=== PATIENT | female | born 1985 | race Hispanic/Latino ===

== ENCOUNTER 2019-02-19 11:37 | Emergency (ER) | payer OTHER ==
[2019-02-19 12:53] LABS: Urine Blood 2+ (NEG); Urine Glucose NEGATIVE (NEG); Urine Protein NEGATIVE (NEG); Urine pH 5.5 (5.0-7.0)
[2019-02-19 13:10] LABS: Urine Bacteria <20 /HPF (<20); Urine Culture Reflex Order NOT NEEDED; Urine Mucus MOD /HPF (NONE SEEN)
[2019-02-19 13:15] LABS: Absolute Lymphocytes (CBC) 2.6 K/uL (0.7-4.9); Basophils % 0.2 % (0-1.3); Hematocrit 39.7 % (36.0-45.0); Lymphocytes % 24.9 % (15.3-44.8); MPV 9.1 fL (7.6-11.3); RBC Red Blood Cell Count 4.57 M/uL (3.86-4.86)
[2019-02-19 13:44] LABS: BUN Blood Urea Nitrogen 11 mg/dL (7-18); Bicarbonate 28 mmol/L (21-32); Glucose Level 95 mg/dL (74-106); HCG, Quantitative 18387 mIU/mL (1-3); Potassium 3.4 mmol/L (3.5-5.1); Sodium Level 139 mmol/L (136-145)
--- NOTE | 2019-02-19 14:09 | RAD REPORT ---
EXAM DESCRIPTION: US - Transvaginal OB - 02/19/2019 1:24 pm CLINICAL HISTORY: with vaginal bleeding COMPARISON: None. FINDINGS: The uterus 12 x 6 x 7 centimeters. A 13 millimeter sac is present within the endometrium. A pole is not seen. A yolk sac is not visualized Nabothian cyst is present within the cervix. 16 millimeter hypoechoic structure within the lower uter ine segment/cervix may represent a fibroid or complex nabothian cyst Ovaries are normal in size and echotexture.. An adnexal mass is not noted. No significant free fluid IMPRESSION: 13 millimeter sac within the endometrium. These findings could represent an early intrauterine in which the yolk sac/ pole is no t seen. An incomplete can also result in this appearance. This all should be correlated clin ically and with serial beta HCG levels. Followup endovaginal sonogram in 1 week recommended
--- NOTE | 2019-02-19 14:14 | ER ---
Nurse's Notes [facility] Name: Sarah Smith Age: 33 yrs Sex: Female : 1985 Arrival Date: 02/19/2019 Time: 11:40 Bed 13 Private MD: Diagnosis: Threatened Presentation: 02/19 11:57 Presenting complaint: Patient states: Spotting for 2 weeks, today had heavy bleeding rb1 and passed a large clot. Transition of care: patient was not received from another setting of care. Onset of symptoms was February 05, 2019. 11:57 Method Of Arrival: Ambulatory rb1 11:57 Acuity: VIPIN 3 rb1 Triage Assessment: 11:57 General: Appears in no apparent distress. comfortable, Behavior is calm, cooperative. rb1 Pain: Complains of pain in low back Pain radiates to groin Pain currently is 6 out of 10 on a pain scale. Neuro: Level of Consciousness is awake, alert, obeys commands, Oriented to person, place, time, situation. Respiratory: Airway is patent Respiratory effort is even, unlabored, Respiratory pattern is regular, symmetrical. : Reports vaginal bleeding that is with clots. Derm: Skin is pink, warm \T\ dry. 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 - Social history:: Smoking status: Patient/guardian denies using tobacco. - Ebola Screening: : Patient negative for fever greater than or equal to 101.5 degrees Fahrenheit, and additional compatible Ebola Virus Disease symptoms. Vital Signs: 12:12 BP 131 / 81; Pulse 95; Resp 17; Temp 98.7(TE); Pulse Ox 100% on R/A; Weight 113.4 kg rb1 (R); Height 5 ft. 4 in. (162.56 cm) (R); Pain 6/10; 14:15 BP 104 / 57; Pulse 82; Resp 16; Temp 98.0(O); Pulse Ox 99% on R/A; mh5 12:12 Body Mass Index 42.91 (113.40 kg, 162.56 cm) rb1 ED Course: 11:40 Patient arrived in ED. as 11:55 [facility] F[facility]-C [facility]. snw 11:55 Ricardo Ramirez MD is Attending Physician. snw 11:57 Arm band placed on right wrist. rb1 12:10 Triage completed. rb1 12:25 Urban Hull, RN is Primary Nurse. ae4 13:23 Ultrasound completed. Patient tolerated well. sg3 13:24 US Transvaginal Ob In Process Unspecified. EDMS 14:14 Initial lab(s) drawn, by me, sent to lab. Urine collected: clean catch specimen, clear. mh5 Inserted saline lock: 22 gauge in right antecubital area, using aseptic technique. 14:15 Patient has correct armband on for positive identification. Placed in gown. Bed in low mh5 position. Call light in reach. Side rails up X 1. Warm blanket given. Pulse ox on. NIBP on. Administered Medications: No medications were administered Intake: 12:47 IV: 250ml; Total: 250ml. em Outcome: 14:12 Discharge ordered by . snw 14:52 Patient left the ED. ae4 Signatures: Dispatcher [employer] EDMS Elisha Smith FNP-C PLANTING MATERIAL UNLOADER-Csnw Robert Colindres, PANTOGRAPH II ENGRAVER PANTOGRAPH II ENGRAVER Love Judd Rebecca, RN RN rb1 [facility] Marii Jurado sg3 Urban Hull, RN RN ae4
--- NOTE | 2019-02-19 14:15 | EDPHYS ---
Physician Documentation [facility] Name: Sarah Smith Age: 33 yrs Sex: Female : 1985 Arrival Date: 02/19/2019 Time: 11:40 Bed 13 Private MD: ED Physician Ricardo Ramirez HPI: 02/19 12:50 This 33 yrs old Female presents to ER via Ambulatory with complaints of snw Vaginal Bleeding, + Preg <12wks. 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 - Social history:: Smoking status: Patient/guardian denies using tobacco. - Ebola Screening: : Patient negative for fever greater than or equal to 101.5 degrees Fahrenheit, and additional compatible Ebola Virus Disease symptoms. ROS: 12:48 Constitutional: Negative for fever, chills, and weight loss, Eyes: Negative for injury, snw pain, redness, and discharge, ENT: Negative for injury, pain, and discharge, Neck: Negative for injury, pain, and swelling, Cardiovascular: Negative for chest pain, palpitations, and edema, Respiratory: Negative for shortness of breath, cough, wheezing, and pleuritic chest pain, Abdomen/GI: Negative for abdominal pain, nausea, vomiting, diarrhea, and constipation, Back: Negative for injury and pain, MS/Extremity: Negative for injury and deformity, Skin: Negative for injury, rash, and discoloration, Neuro: Negative for headache, weakness, numbness, tingling, and seizure. 12:48 : Positive for vaginal bleeding, + . Exam: 12:47 Constitutional: This is a well developed, well nourished patient who is awake, alert, snw and in no acute distress. Head/Face: Normocephalic, atraumatic. Eyes: Pupils equal round and reactive to light, extra-ocular motions intact. Lids and lashes normal. Conjunctiva and sclera are non-icteric and not injected. Cornea within normal limits. Periorbital areas with no swelling, redness, or edema. ENT: Nares patent. No nasal discharge, no septal abnormalities noted. Tympanic membranes are normal and external auditory canals are clear. Oropharynx with no redness, swelling, or masses, exudates, or evidence of obstruction, uvula midline. Mucous membranes moist. Neck: Trachea midline, no thyromegaly or masses palpated, and no cervical lymphadenopathy. Supple, full range of motion without nuchal rigidity, or vertebral point tenderness. No Meningismus. Chest/axilla: Normal chest wall appearance and motion. Nontender with no deformity. No lesions are appreciated. Cardiovascular: Regular rate and rhythm with a normal S1 and S2. No gallops, murmurs, or rubs. Normal PMI, no JVD. No pulse deficits. Respiratory: Lungs have equal breath sounds bilaterally, clear to auscultation and percussion. No rales, rhonchi or wheezes noted. No increased work of breathing, no retractions or nasal flaring. Back: No spinal tenderness. No costovertebral tenderness. Full range of motion. Skin: Warm, dry with normal turgor. Normal color with no rashes, no lesions, and no evidence of cellulitis. MS/ Extremity: Pulses equal, no cyanosis. Neurovascular intact. Full, normal range of motion. Neuro: Awake and alert, GCS 15, oriented to person, place, time, and situation. Cranial nerves II-XII grossly intact. Motor strength 5/5 in all extremities. Sensory grossly intact. Cerebellar exam normal. Normal gait. Psych: Awake, alert, with orientation to person, place and time. Behavior, mood, and affect are within normal limits. 12:47 Abdomen/GI: Inspection: abdomen appears normal, obese Bowel sounds: normal, Palpation: abdomen is soft and non-tender, in all quadrants. Vital Signs: 12:12 BP 131 / 81; Pulse 95; Resp 17; Temp 98.7(TE); Pulse Ox 100% on R/A; Weight 113.4 kg rb1 (R); Height 5 ft. 4 in. (162.56 cm) (R); Pain 6/10; 14:15 BP 104 / 57; Pulse 82; Resp 16; Temp 98.0(O); Pulse Ox 99% on R/A; mh5 12:12 Body Mass Index 42.91 (113.40 kg, 162.56 cm) rb1 MDM: 11:58 Patient medically screened. bárbara 14:20 Data reviewed: vital signs, nurses notes. Data interpreted: Pulse oximetry: on room air snw is 99 %. Interpretation: normal. Counseling: I had a detailed discussion with the patient and/or guardian regarding: the historical points, exam findings, and any diagnostic results supporting the discharge/admit diagnosis, lab results, radiology results, the need for outpatient follow up, to return to the emergency department if symptoms worsen or persist or if there are any questions or concerns that arise at home. Special discussion: Based on the patient's Hx, exam, and Dx evaluation, there is no indication for emergent surgery or inpatient Tx. It is understood by the patient/guardian that if the Sx's persist or worsen they need to return immediately for re-evaluation. Based on the history and exam findings, there is no indication for further emergent testing or inpatient evaluation. I discussed with the patient/guardian the need to see the OB Gyne specialist for further evaluation of the symptoms. 02/19 11:55 Order name: Urine Culture snw 02/19 11:55 Order name: Urine Microscopic Only; Complete Time: 13:18 snw 02/19 12:41 Order name: Urine Dipstick--Ancillary (enter results); Complete Time: 12:54 eb 02/19 12:41 Order name: Urine --Ancillary (enter results); Complete Time: 12:54 eb 02/19 12:54 Order name: Quantitative Hcg; Complete Time: 13:50 snw 02/19 12:54 Order name: Abo/rh Typing; Complete Time: 13:27 snw 02/19 11:55 Order name: Urine Test (obtain specimen); Complete Time: 13:01 snw 02/19 11:55 Order name: Urine Dipstick-Ancillary (obtain specimen); Complete Time: 13:01 snw 02/19 12:18 Order name: US Transvaginal Ob; Complete Time: 14:11 snw 02/19 12:54 Order name: Basic Metabolic Panel; Complete Time: 13:50 snw 02/19 12:54 Order name: CBC with Diff; Complete Time: 13:18 snw 02/19 12:54 Order name: IV Saline Lock; Complete Time: 13:01 snw 02/19 12:54 Order name: Labs collected and sent; Complete Time: 13:01 snw 02/19 12:54 Order name: NPO; Complete Time: 13:01 snw Administered Medications: No medications were administered Disposition: 02/19/19 14:12 Discharged to Home. Impression: Threatened . - Condition is Stable. - Discharge Instructions: Threatened Miscarriage, First Trimester of , Pelvic Rest. - Prescriptions for Vitamin 27- 0.8 mg Oral Tablet - take 1 tablet by ORAL route once daily; 60 tablet. - Work release form, Medication Reconciliation Form, Thank You Letter, Antibiotic Education, Prescription Opioid Use form. - Follow up: Private Physician; When: 2 - 3 days; Reason: Recheck today's complaints, Continuance of care, Re-evaluation by your physician. Follow up: Emergency Department; When: As needed; Reason: Worsening of condition. - Notes: Keep appointment for QUALITY IMPROVEMENT SPECIALIST, return to ER for worsening symptoms Addendum: 02/27/2019 11:05 Co-signature as Attending Physician, Ricardo Ramirez MD I agree with the assessment and c carlson plan of care. Signatures: Dispatcher [employer] EDRicardo Irving MD MD cha Therrien, Shelly, MOLDER FEEDER-C MOLDER FEEDER-Csnw Jess Li, RN RN Urban Light RN RN ae4 Corrections: (The following items were deleted from the chart) 02/19 14:52 14:12 02/19/2019 14:12 Discharged to Home. Impression: Threatened . Condition ae4 is Stable. Forms are Medication Reconciliation Form, Thank You Letter, Antibiotic Education, Prescription Opioid Use. Follow up: Private Physician; When: 2 - 3 days; Reason: Recheck today's complaints, Continuance of care, Re-evaluation by your physician. Follow up: Emergency Department; When: As needed; Reason: Worsening of condition. snw
== END 2019-02-19 14:52 | disposition home or self-care (01) ==
LOC: ER 11:37
DX: O20.0 Threatened abortion (principal); Z88.0 Allergy status to penicillin; Z98.82 Breast implant status
CPT/HCPCS: 36415; 76817; 80048; 81003; 81015; 81025; 84702; 85025; 86900; 86901; 87086; 87088; 99284

== ENCOUNTER 2019-03-05 17:44 | Emergency (ER) | payer MEDICAID, OTHER ==
--- OUTSIDE RECORDS SUMMARY | 2019-03-05 17:46 | XMS REPORT ---
:1985 [facility] Address [address] [place] [address] Care Team Providers Name Role Phone Unavailable Unavailable Unavailable Problems This patient has no known problems. Allergies, Adverse Reactions, Alerts This patient has no known allergies or adverse reactions. Medications This patient has no known medications.
--- NOTE | 2019-03-05 18:52 | ER ---
Nurse's Notes [facility] Name: Sarah Smith Age: 33 yrs Sex: Female : 1985 Arrival Date: 03/05/2019 Time: 17:44 Bed 23 Private MD: Diagnosis: 8 weeks gestation of ;Threatened Presentation: 03/05 17:46 Presenting complaint: Patient states: Vaginal bleeding that started today, patient aj1 reports that she is 9 weeks . Patient reports abdominal cramping. Transition of care: patient was not received from another setting of care. Onset of symptoms was March 05, 2019. Risk Assessment: Do you want to hurt yourself or someone else? Patient reports no desire to harm self or others. Initial Sepsis Screen: Does the patient meet any 2 criteria? No. Patient's initial sepsis screen is negative. Does the patient have a suspected source of infection? No. Patient's initial sepsis screen is negative. Care prior to arrival: None. 17:46 Method Of Arrival: Wheelchair aj 17:46 Acuity: VIPIN 3 aj1 Triage Assessment: 17:48 General: Appears in no apparent distress. comfortable, Behavior is calm, cooperative, aj1 appropriate for age. Pain: Complains of pain in right lower quadrant and left lower quadrant Pain currently is 5 out of 10 on a pain scale. Neuro: Level of Consciousness is awake, alert, obeys commands. Cardiovascular: Patient's skin is warm and dry. Respiratory: Airway is patent Respiratory effort is even, unlabored, Respiratory pattern is regular, symmetrical. GI: No signs and/or symptoms were reported involving the gastrointestinal system. : Reports vaginal bleeding that is bright red, heavy flow. 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 - Social history:: Smoking status: Patient/guardian denies using tobacco. - Ebola Screening: : Patient denies travel to an Ebola-affected area in the 21 days before illness onset. Screenin:31 Abuse screen: Denies threats or abuse. Denies injuries from another. Nutritional mg2 screening: No deficits noted. Tuberculosis screening: No symptoms or risk factors identified. Fall Risk None identified. Assessment: 18:29 General: Appears in no apparent distress. comfortable, Behavior is calm, cooperative. mg2 Pain: Denies pain. Neuro: Level of Consciousness is awake, alert, obeys commands, Oriented to person, place, time, situation. Cardiovascular: Capillary refill < 3 seconds Patient's skin is warm and dry. Respiratory: Airway is patent Respiratory effort is even, unlabored, Respiratory pattern is regular, symmetrical. GI: No signs and/or symptoms were reported involving the gastrointestinal system. : Reports cramping, vaginal bleeding that is moderate flow. EENT: No signs and/or symptoms were reported regarding the EENT system. Derm: Skin is intact, is healthy with good turgor, Skin is pink, warm \T\ dry. normal. Musculoskeletal: Circulation, motion, and sensation intact. Capillary refill < 3 seconds. 18:31 Obstetrical Assessment: General assessment: awake and alert. mg2 Vital Signs: 17:48 BP 118 / 73; Pulse 86; Resp 18; Temp 98.2; Pulse Ox 100% on R/A; Weight 113.4 kg (R); aj1 Height 5 ft. 4 in. (162.56 cm) (R); Pain 5/10; 19:05 BP 118 / 78; Pulse 80; Resp 18; Temp 98; Pulse Ox 100% on R/A; mg2 17:48 Body Mass Index 42.91 (113.40 kg, 162.56 cm) aj1 Vitals: 19:00 Heart Tones fht-done in [facility]. mg2 ED Course: 17:44 Patient arrived in ED. as 17:46 Antoinette Reyes FNP-C is [facility]. kb 17:46 Paras Chan MD is Attending Physician. kb 17:47 Triage completed. aj1 17:48 Arm band placed on Patient placed in an exam room. aj1 17:51 Eliezer Lezama, SO is Primary Nurse. mg2 18:15 Initial lab(s) drawn, by me, sent to lab. Patient did not have IV access during this [facility] emergency room visit. 18:31 Patient has correct armband on for positive identification. Door closed. Warm blanket mg2 given. 18:31 No provider procedures requiring assistance completed. mg2 18:52 Ultrasound completed. Patient tolerated well. Notified WEAVER AXMINSTER/PA . sg3 18:53 US Transvaginal Ob In Process Unspecified. EDMS Administered Medications: No medications were administered Point of Care Testing: Urine : 19:00 not done mg2 Outcome: 18:51 Discharge ordered by . johnathan 19:05 Discharged to home ambulatory, with family. mg2 19:05 Condition: stable 19:05 Discharge instructions given to patient, family, Instructed on discharge instructions, follow up and referral plans. Demonstrated understanding of instructions, follow-up care. 19:15 Patient left the ED. mg2 Signatures: Dispatcher [employer] EDAntoinette Jensen, SCENERY BUILDER-C SCENERY BUILDER-CkRiana Medrano, RN RN Love Uribe Sarah sg3 Eliezer Lezama RN RN mg2
--- NOTE | 2019-03-05 18:52 | EDPHYS ---
Physician Documentation [facility] Name: Sarah Smith Age: 33 yrs Sex: Female : 1985 Arrival Date: 03/05/2019 Time: 17:44 Bed 23 Private MD: ED Physician Paras Chan HPI: 03/05 18:36 This 33 yrs old Female presents to ER via Wheelchair with complaints of kb Vaginal Bleeding, + Preg <12wks. 18:36 The patient presents to the emergency department with vaginal bleeding, that is kb moderate, with no clots. The estimated gestational age is 9 weeks. course: care: at a clinic. Previous pregnancies: in previous pregnancies patient has had. Associated signs and symptoms: Pertinent positives: vaginal bleeding. The patient has not experienced similar symptoms in the past. The patient has not recently seen a physician. Pt reports she had some vaginal bleeding earlier today. It has resolved. . 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 - Social history:: Smoking status: Patient/guardian denies using tobacco. - Ebola Screening: : Patient denies travel to an Ebola-affected area in the 21 days before illness onset. ROS: 18:35 Constitutional: Negative for fever, chills, and weight loss, ENT: Negative for injury, kb pain, and discharge, Neck: Negative for injury, pain, and swelling, Cardiovascular: Negative for chest pain, palpitations, and edema, Respiratory: Negative for shortness of breath, cough, wheezing, and pleuritic chest pain, Abdomen/GI: Negative for abdominal pain, nausea, vomiting, diarrhea, and constipation, Back: Negative for injury and pain, MS/Extremity: Negative for injury and deformity, Skin: Negative for injury, rash, and discoloration, Neuro: Negative for headache, weakness, numbness, tingling, and seizure. 18:35 : Positive for vaginal bleeding. Exam: 18:35 Constitutional: This is a well developed, well nourished patient who is awake, alert, kb and in no acute distress. Head/Face: Normocephalic, atraumatic. ENT: Nares patent. No nasal discharge, no septal abnormalities noted. Tympanic membranes are normal and external auditory canals are clear. Oropharynx with no redness, swelling, or masses, exudates, or evidence of obstruction, uvula midline. Mucous membranes moist. Neck: Trachea midline, no thyromegaly or masses palpated, and no cervical lymphadenopathy. Supple, full range of motion without nuchal rigidity, or vertebral point tenderness. No Meningismus. Chest/axilla: Normal chest wall appearance and motion. Nontender with no deformity. No lesions are appreciated. Cardiovascular: Regular rate and rhythm with a normal S1 and S2. No gallops, murmurs, or rubs. Normal PMI, no JVD. No pulse deficits. Respiratory: Lungs have equal breath sounds bilaterally, clear to auscultation and percussion. No rales, rhonchi or wheezes noted. No increased work of breathing, no retractions or nasal flaring. Abdomen/GI: Soft, non-tender, with normal bowel sounds. No distension or tympany. No guarding or rebound. No evidence of tenderness throughout. Skin: Warm, dry with normal turgor. Normal color with no rashes, no lesions, and no evidence of cellulitis. MS/ Extremity: Pulses equal, no cyanosis. Neurovascular intact. Full, normal range of motion. Neuro: Awake and alert, GCS 15, oriented to person, place, time, and situation. Cranial nerves II-XII grossly intact. Motor strength 5/5 in all extremities. Sensory grossly intact. Cerebellar exam normal. Normal gait. Vital Signs: 17:48 BP 118 / 73; Pulse 86; Resp 18; Temp 98.2; Pulse Ox 100% on R/A; Weight 113.4 kg (R); aj1 Height 5 ft. 4 in. (162.56 cm) (R); Pain 5/10; 19:05 BP 118 / 78; Pulse 80; Resp 18; Temp 98; Pulse Ox 100% on R/A; mg2 17:48 Body Mass Index 42.91 (113.40 kg, 162.56 cm) aj1 MDM: 17:49 Patient medically screened. kb 18:35 Data reviewed: vital signs, nurses notes. Data interpreted: Pulse oximetry: on room air kb is 100 %. Interpretation: normal. 18:50 Counseling: I had a detailed discussion with the patient and/or guardian regarding: the kb historical points, exam findings, and any diagnostic results supporting the discharge/admit diagnosis, lab results, radiology results, the need for outpatient follow up, an OB/Gyne specialist, to return to the emergency department if symptoms worsen or persist or if there are any questions or concerns that arise at home. 03/05 17:51 Order name: HCG-Quantitative; Complete Time: 18:55 kb 03/05 17:51 Order name: US Transvaginal Ob kb Administered Medications: No medications were administered Point of Care Testing: Urine : 19:00 not done mg2 Disposition: 03/06 07:05 Co-signature as Attending Physician, Paras Chan MD. rn Disposition: 03/05/19 18:51 Discharged to Home. Impression: 8 weeks gestation of , Threatened . - Condition is Stable. - Discharge Instructions: Vaginal Bleeding During , First Trimester, First Trimester of , [id number], Threatened Miscarriage, [id number]. - Medication Reconciliation Form, Thank You Letter, Antibiotic Education, Prescription Opioid Use form. - Follow up: Emergency Department; When: As needed; Reason: Worsening of condition. Follow up: Private Physician; When: 2 - 3 days; Reason: Recheck today's complaints, Continuance of care, Re-evaluation by your physician. Signatures: Dispatcher [employer] EDSC Antoinette Reyes, BUSINESS SUPPORT PROFESSIONAL-C BUSINESS SUPPORT PROFESSIONAL-Ckb Riana Onofre RN RN aj1 Paras Chan MD MD rn Gardose, Michele, RN RN mg2 Corrections: (The following items were deleted from the chart) 03/05 19:15 18:51 03/05/2019 18:51 Discharged to Home. Impression: 8 weeks gestation of ; mg2 Threatened . Condition is Stable. Forms are Medication Reconciliation Form, Thank You Letter, Antibiotic Education, Prescription Opioid Use. Follow up: Emergency Department; When: As needed; Reason: Worsening of condition. Follow up: Private Physician; When: 2 - 3 days; Reason: Recheck today's complaints, Continuance of care, Re-evaluation by your physician. kb
--- NOTE | 2019-03-05 19:15 | RAD REPORT ---
EXAM DESCRIPTION: US - Transvaginal OB - 03/05/2019 6:53 pm CLINICAL HISTORY: Abd cramping, ;Vaginal bleeding COMPARISON: Transvaginal OB dated 02/19/2019 FINDINGS: A single gestational sac is seen within the uterus. The shape of the sac is within normal limits for gestational age. Within the sac is a single pole with crown-rump length of 22 mm, co rrelating to estimated gestational age of 8 weeks and 5 days. Estimated date of delivery is 0. Heart rate is 170 BPM. The placenta is not yet developed due to early gestational age. The maternal adnexa and ovaries are within normal limits. Normal Doppler blood flow was demonstrated to both ovaries. IMPRESSION: Single live early intrauterine gestation with estimated gestational age of 8 weeks 5 day s, BECCA 10/10/2019. No unusual or unexpected finding.
[2019-03-05 19:44] VITALS: O2SAT 100
[2019-03-05 19:45] VITALS: BP 118/78; TEMP 98
== END 2019-03-05 19:15 | disposition home or self-care (01) ==
LOC: ER 17:44
DX: O20.0 Threatened abortion (principal); Z3A.08 8 weeks gestation of pregnancy; Z88.0 Allergy status to penicillin
CPT/HCPCS: 36415; 76817; 84702; 99284

== ENCOUNTER 2020-10-04 17:29 | Emergency (ER) | payer OTHER ==
--- OUTSIDE RECORDS SUMMARY | 2020-10-04 17:32 | XMS REPORT | Continuity of Care Document ---
:1985 Author Organization [facility] t Address [address] [place] [address] Care Team Providers Name Role Phone Asked, Pcp Primary Care Physician Unavailable Dee Brown MD Attending Clinician Nurse, Women's [facility] Attending Clinician Unavailable Doctor Unassigned, Name Attending Clinician Unavailable Gene LONDON, Cam Attending Clinician Payers Payer Name Policy Type Policy Effective Date Expiration Date Sour ce Number MOLINAMOLINA [id number] 2019 [facility] STAR 00:00:00 Hospit al [id number]/03/13 20-PresentHMO Problems This patient has no known problems. Allergies, Adverse Reactions, Alerts Allergy Allergy Status Severity Reaction(s) Onset Inactive Treating Comm ents Source Name Type Date Date Clinician Penicill Propensi Active Swelling Meth rishi ins ty to 06-03 st adverse 00:00: Hospita reaction 00 l s to drug Penicill DA Active U 2019-02 [facility] ins 02-23 [facility] are [facility] Social History Social Habit Start Date Stop Date Quantity Comments Source History SDOH [facility] History SDOH [facility] Tobacco use and 2020-06-03 2020-06-03 Never used [facility] exposure 00:00:00 00:00:00 Hospital Alcohol intake 2020-06-03 2020-06-03 Lifetime [facility] 00:00:00 00:00:00 non-drinker Hospital (finding) History SDOH 2020-06-03 2020-06-03 1 [facility] Alcohol Frequency 00:00:00 00:00:00 Hospita l Sex Assigned At [birth year] [facility] 00[facility]00 [facility] Smoking Status Start Date Stop Date Source Never smoker [facility] Medications Ordered Filled Start Stop Current Ordering Indication Dosage Frequency Signature Comments Components Source Medication Medication Date Date Medication? Clinician (SIG) Name Name phentermine Yes 37.5mg QD Take 37.5 [facility] 37.5 MG 4-[address] capsule 23:22: mouth Hospita 35 every l morning. albuterol 2020- No 2{puff} Q4H Inhale 2 [facility] (PROAIR 12 05-[address] HFA) 90 00:00: 04:59 every 4 Hospit a mcg/actuati 00 :00 (four) l on inhaler hours as needed for wheezing for up to 30 days. benzonatate No 100mg [id number] Take 1 [facility] (TESSALON) 06-03 04-[id number] 100 MG 00:00: 04:59 3D (100 mg Hospita capsule 00 :00 total) by l mouth 3 (three) times a day as needed for cough for up to 5 days. Vital Signs Vital Name Observation Time Observation Value Comments Source Body height 2020-06-03 23:20:[address] [facility] Body weight 2020-06-03 23:20:[address] [facility] BMI 2020-06-03 23:20:00 39.48 kg/m2 [facility] Systolic blood 2020-06-03 23:19:54 125 mm[Hg] [facility] Hospital pressure Diastolic blood 2020-06-03 23:19:54 74 mm[Hg] [facility] pressure Heart rate 2020-06-03 23:19:54 94 /min [facility] Body temperature 2020-06-03 23:19:54 37.28 [facility] Respiratory rate 2020-06-03 23:19:54 20 /min [facility] Oxygen saturation in 2020-06-03 23:19:54 98 /min [facility] Arterial blood by Pulse oximetry Procedures Procedure Date / Time Performing Clinician Source Performed ECG 12-LEAD 2020-06-04 00:28[facility], RAPID 2020-06-04 00:15:[address] [facility] ANTIGEN HC COMPLETE BLD COUNT 2020-06-04 00:15:00 [facility] W/AUTO DIFF BASIC METABOLIC PANEL 2020-06-04 00:15:00 [facility] TROPONIN, I-STAT 2020-06-04 00:15:00 Arlette Brown [facility] ospital HCG QUALITATIVE, URINE 2020-06-04 00:15:00 Kevin [facility] SCREEN URINALYSIS 2020-06-04 00:15:00 [facility] GFR 2020-06-04 00:15:00 Kevin [facility] spital XR CHEST 2 VW 2020-06-03 23:54:55 Kevin [facility] spital ECG ED PRELIMINARY 2020-06-03 23:30:13 Kevin [facility] INTERPRETATION Plan of Care Planned Activity Planned Date Details Comments Source Future Scheduled Test COVID-19 VACCINE (1) [facility] [code = COVID-19 VACCINE (1)] Future Scheduled Test Hepatitis C screening [facility] (procedure) [code = 069428687] Future Scheduled Test Screening for [facility] malignant neoplasm of cervix (procedure) [code = 100152770] Future Scheduled Test INFLUENZA VACCINE [facility] [code = INFLUENZA VACCINE] Encounters Start End Encounter Admission Attending Care Care Encounter Source Date/Time Date/Time Type Type Clinicians Facility Department ID 2020-06-03 2020-06-03 Emergency Arlette Brown [id number] [facility] 18:19:00 20:05:[id number] 3.430.2.7 Hospit a .[id number] l .8 2020-06-03 2020-06-03 Emergency [facility] [id number] [facility] 00:00:00 00:00:[address] 2019-08-02 2019-08-02 Nurse Nurse, Kate [facility] [id number] 13:36:00 14:05:42 Visit Women's Tereza 350.1.13.10 [facility] 4.2.7.2.686 Professio [phone] nal [address] [facility] 2019-08-02 2019-08-02 Orders Doctor CARLOTA [id number] 00:00:00 00:00:00 Only Unassigned, STU 350.1.13.10 [facility] 4.2.7.2.686 [id number] 2019-07-06 2019-07-06 Office MillsNatasha [facility] [id number] 13:05:07 14:04:09 Visit Greg Starks 350.1.13.10 [place] 4.2.7.2.686 Professio [id number] [facility] [address] [facility] Results Test Description Test Time Test Comments Results Result Comments Source ECG 12 lead 2020-06-05 02:38:51 Test Item Value Reference Range Interpretation Comme nts Ventricular rate (test code = 253) Atrial rate (test code = 255) IA interval (test code = 266) QRSD interval (test code = 260) QT interval (test code = 264) QTC interval (test code = 265) P axis 1 (test code = 267) QRS axis 1 (test code = 268) T wave axis (test code = 270) EKG impression (test code = 273) Normal sinus rhythm-Cannot rule ou t Anterior infarct , age undetermined-Abnormal ECG-No previous ECGs available- [facility] 2 [id number] 00:26:22EXAMINATION: XR CHEST 2 VW CLINICAL HISTORY: 34 years Female evaluate for PNA COMPARISON: None. IM PRESSION: The cardiomediastinal silhouette is not enlarged The lungs are clear Age related changesin the osseous structures. . . Interface, Radiology Results Incoming - 06/03/2020 7:29 PM CDT EXAMINATION: XR CHEST 2 VWCLINICAL HISTORY: 34 years Female evaluate for PNACOMPARISON: None.IMPRESSION:The cardiomediastinal silhouette isnot enlarged The lungs are clear Age related changes in the osseous structures...[facility] ED Preliminary Interpretation - Not an Order 2020-06-03 23:30:13Arlette Brown MD 06/03/2020 7:48 [facility] Preliminary Interpretation - Not an OrderPerformed by: Arlette Brown MDAuthorized by: Arlette Brown MD ECG reviewed by ED Physician in the absence of a wireless sales representative: yes Interpretation: Interpretation: non-specific Rate: ECG rate: 87 ECG rate assessment: normal Rhythm: Rhythm: sinus rhythm ST segments: ST segments: NormalT waves: Twaves: non-specific and flatteningMethodist HospitalURINALYSIS [id number] 14:09:00 Test Item Value Reference Range Interpretation Comments UA COLOR (test code = COLU) YELLOW YELLOW UA APPEARANCE (test code = APPU) HAZY CLEAR UA GLUCOSE DIPSTICK (test code = NEGATIVE NEGATIVE DGLUU) UA BILIRUBIN DIPSTICK (test code = NEGATIVE NEGATIVE BILU) UA KETONE DIPSTICK (test code = NEGATIVE NEGATIVE KETU) UA SPECIFIC GRAVITY (test code = 1.020 1.001-1.030 SGU) UA BLOOD DIPSTICK (test code = NAOMI) 1+ NEGATIVE UA PH DIPSTICK (test code = LYNSEY) 5.0 5.0-9.0 UA PROTEIN DIPSTICK (test code = NEGATIVE NEGATIVE PROU) UA UROBILINOGEN DIPSTICK (test code NEGATIVE <=1.0 = URO) UA NITRITE DIPSTICK (test code = NEGATIVE NEGATIVE BIENVENIDO) UA ASCORBIC ACID DIPSTICK (test code NEGATIVE = AAU) UA LEUKOCYTE ESTERASE DIPSTICK (test NEGATIVE NEGATIVE code = LEUU) UA WBC (test code = WBCU) 0-5 /HPF 0-5 UA RBC (test code = RBCU) 0-5 /HPF 0-5 UA EPITHELIAL CELLS (test code = MOD /LPF NONE-FEW EPIU) UA BACTERIA (test code = BACU) 1+ /HPF NONE SEEN A UA MUCUS (test code = MUCU) 1+ /LPF NONE SEEN UR HCG [id number] 14:08:00 Test Item Value Reference Range Interpretation Comments UR HCG QUAL (test code = HCGQLU) NEGATIVE NEGATIVE
[2020-10-04] MEDS ORDERED: MAGNES/ALUMIN/SIMET 30ML UCUP ONE (18:41)
[2020-10-04] MEDS ORDERED: IBUPROFEN 200 MG TAB PO ONE (18:41)
[2020-10-04] MEDS ORDERED: LIDOCAINE VISCOUS 2% SOLN 15 ML UDC ONE (18:41)
[2020-10-04 19:43] LABS: SARS-COV-2 RT PCR POSITIVE (NEGATIVE)
--- NOTE | 2020-10-04 19:51 | EDPHYS ---
Physician Documentation [facility] Name: Sarah Smith Age: 34 yrs Sex: Female : 1985 Arrival Date: 10/04/2020 Time: 17:36 Bed Waiting Private MD: ED Physician Floyd Pal HPI: 10/04 19:45 This 34 yrs old Female presents to ER via Ambulatory with complaints of Ear kb Pain, Sore Throat, Fever, Breathing Difficulty. 20:00 The patient has not recently seen a physician. kb 20:00 The patient presents with sore throat. The patient describes throat pain as constant. kb Onset: The symptoms/episode began/occurred 1 week(s) ago. Severity of symptoms: At their worst the symptoms were moderate, in the emergency department the symptoms are unchanged. Modifying factors: The symptoms are alleviated by nothing, the symptoms are aggravated by nothing, Patient's oral intake status: limited fluid intake, limited food intake, Denies contact with similarly ill indivduals. Associated signs and symptoms: Pertinent positives: earache, fever, Sore throat. The patient has not experienced similar symptoms in the past. Pt reports fever, sore throat and ear pain that started a week ago. Was seen by PCP on Wednesday and started on antibiotics. Ears are getting better, but pain in throat is getting worse. . Historical: - Allergies: 18:16 PENICILLINS; ss - Immunization history:: Adult Immunizations up to date. - Social history:: Smoking status: Patient denies any tobacco usage or history of. ROS: 19:43 Constitutional: Positive for body aches, chills, fatigue, fever, malaise. kb 19:43 ENT: Positive for ear pain, sore throat. 19:44 Respiratory: Negative for shortness of breath, cough, wheezing, and pleuritic chest kb pain. 19:44 All other systems are negative. Exam: 19:44 Constitutional: This is a well developed, well nourished patient who is awake, alert, kb and in no acute distress. Head/Face: Normocephalic, atraumatic. Cardiovascular: Regular rate and rhythm with a normal S1 and S2. No gallops, murmurs, or rubs. No pulse deficits. Respiratory: Respirations even and unlabored. No increased work of breathing, no retractions or nasal flaring. Abdomen/GI: Soft, non-tender. No distention Skin: Warm, dry with normal turgor. Normal color. MS/ Extremity: Pulses equal, no cyanosis. Neurovascular intact. Full, normal range of motion. Neuro: Awake and alert, GCS 15, oriented to person, place, time, and situation. Moves all extremities. Normal gait. Psych: Awake, alert, with orientation to person, place and time. Behavior, mood, and affect are within normal limits. 19:44 ENT: Ear canal(s): are normal, TM's: are normal, Nose: is normal, Mouth: is normal, Posterior pharynx: Airway: normal, Tonsils: are normal in appearance, Uvula: normal, midline, swelling, is not appreciated, erythema, that is mild, exudate, is not appreciated. Vital Signs: 18:13 BP 133 / 86; Pulse 126; Resp 20; Temp 101.0; Pulse Ox 97% on R/A; Weight 108.86 kg; ss Height 5 ft. 5 in. (165.10 cm); 20:02 Pulse 115; Temp 97.9; kb 18:13 Body Mass Index 39.94 (108.86 kg, 165.10 cm) ss MDM: 18:15 Patient medically screened. kb 19:45 Data reviewed: vital signs, nurses notes. Data interpreted: Pulse oximetry: on room air kb is 97 %. Interpretation: normal. Counseling: I had a detailed discussion with the patient and/or guardian regarding: the historical points, exam findings, and any diagnostic results supporting the discharge/admit diagnosis, lab results, the need for outpatient follow up, a family practitioner, to return to the emergency department if symptoms worsen or persist or if there are any questions or concerns that arise at home. 10/04 17:50 Order name: Flu kb 10/04 17:50 Order name: Strep; Complete Time: 18:50 kb 10/04 18:45 Order name: Throat Culture EDMS 10/04 19:44 Order name: COVID-19/FLU A+B; Complete Time: 19:50 EDMS Administered Medications: 18:21 Drug: GI Cocktail without - (Maalox Suspension 30 ml, Lidocaine Liquid 2 % 15 kb ml) Route: PO; 18:21 Drug: Ibuprofen 600 mg Route: PO; kb Disposition Summary: 10/04/20 19:50 Discharge Ordered Location: Home kb Condition: Stable kb Diagnosis - Coronavirus infection, unspecified kb Followup: kb - With: Emergency Department - When: As needed - Reason: Worsening of condition Followup: kb - With: Private Physician - When: 2 - 3 days - Reason: Recheck today's complaints, Continuance of care, Re-evaluation by your physician Discharge Instructions: - Discharge Summary Sheet kb - Viral Respiratory Infection, Yddr-Ul-Bmyl kb - COVID-19 kb Forms: - Medication Reconciliation Form kb - Thank You Letter kb - Antibiotic Education kb - Prescription Opioid Use kb Addendum: 10/07/2020 07:11 Co-signature as Attending Physician, Floyd Pal MD I agree with the assessment and k dr plan of care. Signatures: Dispatcher [employer] EDMS Antoinette Reyes, CHIEF CONTROLLER TOWER-C CHIEF CONTROLLER TOWER-Ckb Floyd Pal MD MD [facility] Connie Valerio RN RN ss Corrections: (The following items were deleted from the chart) 10/04 18:37 17:50 Influenza Screen (A ordered. EDMS EDMS 18:37 17:50 CORONAVIRUS+MR.LAB.BRZ ordered. EDMS EDMS 19:44 19:43 ENT: Positive for sore throat, kb kb
--- NOTE | 2020-10-04 19:51 | ER ---
Nurse's Notes [facility] Name: Sarah Smith Age: 34 yrs Sex: Female : 1985 Arrival Date: 10/04/2020 Time: 17:36 Bed Waiting Private MD: Diagnosis: Coronavirus infection, unspecified Presentation: 10/04 18:13 Chief complaint: Patient states: ear pain, sore throat that began Wednesday. DX with ss bilateral ear infections on Wednesday and given amoxicillin. Pt reports that her ears are better, but her throat is much worse. Coronavirus screen: Client denies travel out of the [place] in the last 14 days. Ebola Screen: Patient denies exposure to infectious person. Patient denies travel to an Ebola-affected area in the 21 days before illness onset. Initial Sepsis Screen: Does the patient meet any 2 criteria? RR > 20 per min. Does the patient have a suspected source of infection? Yes: Other: throat. Risk Assessment: Do you want to hurt yourself or someone else? Patient reports no desire to harm self or others. Onset of symptoms was September 28, 2020. 18:13 Method Of Arrival: Ambulatory ss 18:13 Acuity: VIPIN 3 ss Historical: - Allergies: 18:16 PENICILLINS; ss - Immunization history:: Adult Immunizations up to date. - Social history:: Smoking status: Patient denies any tobacco usage or history of. Vital Signs: 18:13 BP 133 / 86; Pulse 126; Resp 20; Temp 101.0; Pulse Ox 97% on R/A; Weight 108.86 kg; ss Height 5 ft. 5 in. (165.10 cm); 20:02 Pulse 115; Temp 97.9; kb 18:13 Body Mass Index 39.94 (108.86 kg, 165.10 cm) ss ED Course: 17:36 Patient arrived in ED. mr 17:49 Antoinette Reyes FNP-C is [facility]. kb 17:49 Floyd Pal MD is Attending Physician. kb 18:16 Triage completed. ss 18:16 Arm band placed on right wrist. ss 18:22 Strep Sent. ss 18:22 Flu Sent. ss Administered Medications: 18:21 Drug: GI Cocktail without - (Maalox Suspension 30 ml, Lidocaine Liquid 2 % 15 kb ml) Route: PO; 18:21 Drug: Ibuprofen 600 mg Route: PO; kb Outcome: 19:50 Discharge ordered by . johnathan 20:59 Patient left the ED. kb Signatures: Antoinette Reyes FNP-C FNP-Damian Raymonda Kayleen mr ChenchoаннаConnie, RN RN ss Corrections: (The following items were deleted from the chart) 18:37 18:22 Influenza Screen (A drawn and sent. EDMS
[2020-10-04 21:03] VITALS: BP 133/86; O2SAT 97
[2020-10-04 21:04] VITALS: TEMP 97.9
== END 2020-10-04 20:59 | disposition home or self-care (01) ==
LOC: ER 17:29
DX: U07.1 COVID-19 (principal); Z88.0 Allergy status to penicillin
CPT/HCPCS: 87070; 87081; 0240U; 99283

== ENCOUNTER 2021-06-16 13:48 | Emergency (ER) | payer OTHER ==
--- OUTSIDE RECORDS SUMMARY | 2021-06-16 14:01 | XMS REPORT | Continuity of Care Document ---
:1985 Author Organization [facility] t Address [address] [place] [address] Care Team Providers Name Role Phone Asked, Pcp Primary Care Physician Unavailable ALEMAN Attending Clinician Unavailable Dee Brown MD Attending Clinician Hortencia KING Attending Clinician Unavailable Nurse, Women's Health Attending Clinician Unavailable Doctor Unassigned, Name Attending Clinician Unavailable Guerrero Roque MD Attending Clinician GUERRERO ROQUE Attending Clinician Unavailable MYNOR MG, A Attending Clinician Unavailable ANA LAURA WHEATLEY Admitting Clinician Unavailable MYNOR MG, Hortencia Admitting Clinician Unavailable Payers Payer Name Policy Type Policy Number Effective Date Expiration Date S jose elias [facility] [id number] 2019 MEDICAID 00:00:00 [facility] [id number] 2019 [facility] 00:00:00 [facility] [id number] 020-PresentO MEDICAID [place] [id number] 2019 2019 00:00:00 00:00:00 Problems This patient has no known problems. Allergies, Adverse Reactions, Alerts Allergy Allergy Status Severity Reaction(s) Onset Inactive Treating Comm ents Source Name Type Date Date Clinician Penicill Propensi Active Swelling Meth rishi ins ty to 4-12 st adverse 00:00: Hospita reaction 00 l s to drug Penicill DA Active U 2019-02 [facility] ins 02-23 [place] 00:[facility]: Health [address] Penicill DA Active U UNKNOWN 2019-02 [facility] ins 02-23 [place] 00:00: Health [address] PENICILL DRUG Active Hives 2018-02 Univers IN INGREDI 2-31 ity of 00:00: [place] [id number] [address] Social History Social Habit Start Date Stop Date Quantity Comments Source History [facility] Std Drinks Hospit al History [facility] Binge [facility] Tobacco use and 2020-06-03 2020-06-03 Never used [facility] exposure 00:00:00 00:00:00 Hospital Alcohol intake 2020-06-03 2020-06-03 Lifetime [facility] 00:00:00 00:00:00 non-drinker Hospital (finding) History SDOH 2020-06-03 2020-06-03 1 [facility] Alcohol Frequency 00:00:00 00:00:00 Hospita l Sex Assigned At [birth year] [facility] 00:[facility] 00:00:00 Hospital Smoking Status Start Date Stop Date Source Never smoker [facility] Hospit al Medications Ordered Filled Start Stop Current Ordering Indication Dosage Frequency Signature Comments Components Source Medication Medication Date Date Medication? Clinician (SIG) Name Name phentermine Yes 37.5mg QD Take 37.5 [facility] 37.5 MG 4-[address] capsule 23:22: mouth Hospita 35 every l morning. albuterol 2020- No 2{puff} Q4H Inhale 2 [facility] (PROAIR 4-12 05-[address] HFA) 90 00:00: 04:59 every 4 Hospit a mcg/actuati 00 :00 (four) l on inhaler hours as needed for wheezing for up to 30 days. benzonatate 2020- No 100mg Q.[id number] Take 1 [facility] (TESSALON) 4-12 04-[id number] 100 MG 00:00: 04:59 3D (100 mg Hospita capsule 00 :00 total) by l mouth 3 (three) times a day as needed for cough for up to 5 days. Vital Signs Vital Name Observation Time Observation Value Comments Source Body weight 2020-06-03 23:20:00 104.327 [facility] 2020-06-03 23:20:00 39.48 kg/m2 [facility] Body height 2020-06-03 23:20:00 162.6 cm [facility] Systolic blood 2020-06-03 23:19:54 125 mm[Hg] [facility] pressure Diastolic blood 2020-06-03 23:19:54 74 mm[Hg] [facility] pressure Heart rate 2020-06-03 23:19:54 94 /min [facility] Body temperature 2020-06-03 23:19:54 37.28 Jie [facility] Respiratory rate 2020-06-03 23:19:54 20 /min [facility] Oxygen saturation in 2020-06-03 23:19:54 98 /min [facility] Arterial blood by Pulse oximetry Procedures Procedure Date / Time Performing Clinician Source Performed ECG 12-LEAD 2020-06-04 00:28:54 [facility]ees[facility]al GROUP A STREP, RAPID 2020-06-04 00:15:00 [facility] COMPLETE BLD COUNT 2020-06-04 00:15:00 Kevin [facility] W/AUTO DIFF BASIC METABOLIC PANEL 2020-06-04 00:15:00 [facility] TROPONIN, I-STAT 2020-06-04 00:15:00 Gigi Brown ospital HCG QUALITATIVE, URINE 2020-06-04 00:15:00 [facility] SCREEN URINALYSIS 2020-06-04 00:15:00 Gigi Brown spital ESTIMATED GFR 2020-06-04 00:15:00 [facility] CHEST 2 VW 2020-06-03 23:54:55 [facility] PRELIMINARY 2020-06-03 23:30:13 [facility] INTERPRETATION Plan of Care Planned Activity Planned Date Details Comments Source Future Scheduled Test COVID-19 VACCINE (1) [facility] [code = COVID-19 VACCINE (1)] Future Scheduled Test Hepatitis C screening [facility] (procedure) [code = 473148773] Future Scheduled Test [facility] malignant neoplasm of cervix (procedure) [code = 132467989] Future Scheduled Test INFLUENZA VACCINE [facility] [code = INFLUENZA VACCINE] Encounters Start End Encounter Admission Attending Care Care Encounter Source Date/Time Date/Time Type Type Clinicians Facility Department ID 2020-12-19 Outpatient P [facility] PEÑA [id number] Univers 14:52:42 ity of [facility] 2020-12-19 Outpatient [facility] [id number] Univers 14:25:49 ity [facility] 2019-12-25 Inpatient HCANW ARIELLE [id number] 12:39:00 [id number] [facility] 2020-06-14 2020-06-14 [facility] [id number] Univers 15:00:00 15:00:00 [facility] [id number] [facility] 2020-06-03 2020-06-03 Emergency Ho, Gigi [id number] Methodi 18:19:00 20:05:[id number] 3.430.2.7 Hospit a .[id number] l .8 2019-10-31 2019-10-31 Outpatient [facility] [id number] Univers 14:30:00 14:30:00 [id number] [facility] 2019-08-24 2019-08-24 Outpatient Francia CHRISTINE [facility] [id number] Univers 09:30:00 09:30:00 WONDIFUL ity o f [facility] 2019-08-24 2019-08-24 Outpatient R CHRISTINE [facility] [id number] Univers 09:00:00 09:00:00 WONDIFUL ity o f [facility] 2019-08-11 2019-08-11 Outpatient R LOVE, [facility] [id number] Univers 08:30:00 08:30:00 BART [id number] ity [facility] 2019-08-11 2019-08-11 Outpatient R LOVE, [facility] [id number] Univers 08:30:00 08:30:00 BART [facility] 2019-08-02 2019-08-02 Nurse Nurse, [facility] [id number] 13:36:00 14:05:42 Visit Women's Tereza [id number] [facility] 4.2.7.2.686 Professio [id number] [address] 2019-08-02 2019-08-02 Outpatient R [facility] [id number] Univers 14:00:00 14:00:00 [id number] ity [facility] 2019-08-02 2019-08-02 Outpatient R [facility] [id number] Univers 14:00:00 14:00:00 ity [facility] 2019-08-02 2019-08-02 Orders Doctor CARLOTA [id number] 00:00:00 00:00:00 Only Unassigned, STU 350.1.13.10 [place] [facility] 4.2.7.2.686 [id number] 2019-07-06 2019-07-06 Office Zoraida Roque [facility] [id number] 13:05:07 14:04:09 Visit Guerrero Starks 350.1.13.10 [place] 4.2.7.2.686 Professio [id number] [address] 2019-07-06 2019-07-06 Outpatient R ZORAIDA ROQUE [facility] [id number] Univers 13:00:00 13:00:00 [id number] [facility] 2019-07-06 2019-07-06 Outpatient R ZORAIDA ROQUE [facility] [id number] Univers 13:00:00 13:00:00 [facility] 2019-06-15 2019-06-15 Outpatient R ALEMAN [facility] [id number] Univers 09:30:00 09:30:00 BART [id number] [facility] 2019-06-15 2019-06-15 Outpatient R LOVE [facility] [id number] Univers 09:30:00 09:30:00 [facility] 2019-05-25 2019-05-25 Outpatient R LOVE [facility] [id number] Univers 10:30:00 10:30:00 BART [id number] [facility] 2019-05-25 2019-05-25 Outpatient R LOVE [facility] [id number] Univers 10:30:00 10:30:00 BART [facility] 2019-05-17 2019-05-17 Outpatient ZORAIDA PASCUAL [facility] [id number] Univers 09:00:00 09:00:00 [id number] [facility] 2019-05-17 2019-05-17 Outpatient R ZORAIDA ROQUE [facility] [id number] Univers 09:00:00 09:00:00 [facility] 2019-05-11 2019-05-11 Outpatient R LOVE [facility] [id number] Univers 15:15:00 15:15:00 BART [facility] 2019-05-05 2019-05-05 Outpatient R LOVE [facility] [id number] Univers 08:15:00 08:15:00 BART [id number] [facility] 2019-05-05 2019-05-05 Outpatient R LOVE [facility] [id number] Univers 08:15:00 08:15:00 BART [facility] 2019-02-02 2019-02-02 Emergency X MYNOR III, [facility] ERT [id number] Univers 16:33:54 21:30:00 DESTINY [facility] Results Test Description Test Time Test Comments Results Result Comments Source ECG 12 lead 2020-06-05 02:38:51 Test Item Value Reference Range Interpretation Comme nts Ventricular rate (test code = 253) Atrial rate (test code = 255) NE interval (test code = 266) QRSD interval [...] , age undetermined-Abnormal ECG-No previous ECGs available- [facility] 2 [id number] 00:26:22EXAMINATION: XR CHEST 2 VW CLINICAL HISTORY: 34 years Female evaluate for PNA COMPARISON: None. IM PRESSION: The cardiomediastinal silhouette is not enlarged The lungs are clear Age related changesin the osseous structures. . . Hm Interface, Radiology Results Incoming - 06/03/2020 7:29 PM CDT EXAMINATION: XR CHEST 2 VWCLINICAL HISTORY: 34 years Female evaluate for PNACOMPARISON: None.IMPRESSION:The cardiomediastinal silhouette isnot enlarged The lungs are clear Age related changes in the osseous structures...[facility] Preliminary Interpretation - Not an Order 2020-06-03 23:30:13Gigi Brown MD 06/03/2020 7:48 [facility] [place] Preliminary Interpretation - Not an OrderPerformed by: Gigi Brown MDAuthorized by: Gigi Brown MD ECG reviewed by ED Physician in the absence of a flower planter: yes Interpretation: Interpretation: non-specific Rate: ECG rate: 87 ECG rate assessment: normal Rhythm: Rhythm: sinus rhythm ST segments: ST segments: NormalT waves: Twaves: non-specific and flatteningMethodist HospitalURINALYSIS [id number] 14:09:00 Test Item Value Reference Range Interpretation [...] MUCU) 1+ /LPF NONE SEEN UR HCG [id number] 14:08:00 Test Item Value Reference Range Interpretation Comments UR HCG QUAL (test code = HCGQLU) NEGATIVE NEGATIVE
--- NOTE | 2021-06-16 14:36 | RAD REPORT ---
EXAM DESCRIPTION: CT - CTHCSPWOC - 06/16/2021 2:25 pm CLINICAL HISTORY: Trauma, head and neck injury. headache, neck pain COMPARISON: No comparisons TECHNIQUE: Axial 5 mm thick images of the head were obtained. Axial 2 mm thick images of the cervical spine were obtained with sagittal and coronal reconstruction images generated and reviewed. All CT scans are performed using dose optimization technique as appropriate and may include automated exposure control or mA/KV adjustment according to patient size. FINDINGS: CT HEAD WITHOUT CONTRAST: No acute hemorrhage, hydrocephalus or extra-axial collection is identified.No areas of brain edema or midline shift. The paranasal sinuses and mastoids are clear.The calvarium is intact. CT CERVICAL SPINE WITHOUT CONTRAST: No fracture or subluxation.No prevertebral soft tissues swelling is identified. IMPRESSION: No acute intracranial or cervical spine findings.
--- NOTE | 2021-06-16 14:45 | RAD REPORT ---
EXAM DESCRIPTION: RAD - Chest Single View - 06/16/2021 2:31 pm CLINICAL HISTORY: CHEST PAIN COMPARISON: No comparisons FINDINGS: Lines: None. Lungs: No evidence of edema or pneumonia. Pleural: No significant pleural effusions or pneumothorax. Cardiac: The heart size is within normal limits. Bones: No acute fractures. Other: IMPRESSION: No acute cardiopulmonary disease.
[2021-06-16 14:47] LABS: Absolute Lymphocytes (CBC) 2.7 K/uL (0.7-4.9); Hematocrit 45.3 % (36.0-45.0); Lymphocytes % 26.6 % (15.3-44.8); MPV 8.8 fL (7.6-11.3); RBC Red Blood Cell Count 5.12 M/uL (3.86-4.86)
[2021-06-16 14:49] LABS: Protime INR 1.05
[2021-06-16 15:12] LABS: ALT/SGPT 46 U/L (12-78); AST/SGOT 21 U/L (15-37); Albumin 3.7 g/dL (3.4-5.0); Alkaline Phosphatase 85 U/L (45-117); BUN Blood Urea Nitrogen 14 mg/dL (7-18); Bicarbonate 27 mmol/L (21-32); Bilirubin Total 0.4 mg/dL (0.2-1.0); Glucose Level 85 mg/dL (74-106); Magnesium 2.2 mg/dL (1.8-2.4); Potassium 3.7 mmol/L (3.5-5.1); Protein, Total 7.9 g/dL (6.4-8.2); Sodium Level 138 mmol/L (136-145)
[2021-06-16 15:23] LABS: Bilirubin Direct < 0.1 mg/dL (0-0.2); Troponin High Sensitivity < 3.0 pg/mL (<58.9)
[2021-06-16] MEDS ORDERED: CYCLOBENZAPRINE 10 MG TAB ONE (15:25)
[2021-06-16] MEDS ORDERED: ACETAMINOPHEN 500 MG TAB ONE (15:25)
[2021-06-16 15:27] LABS: Urine Blood Trace-intact (Negative); Urine Glucose Negative (Negative); Urine Protein Trace (Negative); Urine Specific Gravity >=1.030 (1.005-1.030); Urine pH 5.5 (5.0-7.0)
[2021-06-16] MEDS ORDERED: KETOROLAC 30 MG/ML INJ ONE (15:31)
[2021-06-16] MEDS ORDERED: LIDOCAINE 4% PATCH ONE (15:32)
--- NOTE | 2021-06-16 15:32 | ER ---
Nurse's Notes [facility] Name: Sarah Smith Age: 35 yrs Sex: Female : 1985 Arrival Date: 06/16/2021 Time: 13:49 Bed 9 Private MD: Diagnosis: Headache;Cervicalgia;Chest pain, unspecified Presentation: 06/16 14:08 Chief complaint: Patient states: "the right side of my chest hurts and the whole right aa5 side of my body hurts (right side of head, right arm, right side of chest, and right leg) and it's been going on for months". Pt c/o throbbing pain to back of head. Pt states "I've been going through some stress". Coronavirus screen: At this time, the client does not indicate any symptoms associated with coronavirus-19. Ebola Screen: No symptoms or risks identified at this time. Initial Sepsis Screen: Does the patient meet any 2 criteria? No. Patient's initial sepsis screen is negative. Does the patient have a suspected source of infection? No. Patient's initial sepsis screen is negative. Risk Assessment: Do you want to hurt yourself or someone else? Patient reports no desire to harm self or others. Onset of symptoms was May 2021. 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 - Social history:: Smoking status: Patient denies any tobacco usage or history of. Screenin:20 Abuse screen: Denies threats or abuse. Denies injuries from another. Nutritional jl7 screening: No deficits noted. Tuberculosis screening: No symptoms or risk factors identified. Fall Risk None identified. Assessment: 15:20 General: Appears in no apparent distress. uncomfortable, Behavior is calm, cooperative, jl7 appropriate for age. Pain: Complains of pain in right side of neck Pain currently is 8 out of 10 on a pain scale. Neuro: Level of Consciousness is awake, alert, obeys commands, Oriented to person, place, time. Cardiovascular: Patient's skin is warm and dry. Chest pain is denied. Respiratory: Airway is patent Respiratory effort is even, unlabored, Respiratory pattern is regular, symmetrical. Derm: Skin is pink, warm \\T\\ dry. Vital Signs: 14:08 BP 123 / 99; Pulse 93; Resp 18 S; Temp 97.9(TE); Pulse Ox 100% on R/A; Weight 112.94 kg aa5 (R); Height 5 ft. 4 in. (162.56 cm) (R); 15:30 BP 119 / 84; Pulse 89; Resp 15; Pulse Ox 100% ; Pain 8/10; jl7 14:08 Body Mass Index 42.74 (112.94 kg, 162.56 cm) aa5 ED Course: 13:49 Patient arrived in ED. am2 14:08 Arm band placed on. aa5 14:10 Triage completed. aa5 14:11 Ricardo Lemos PA is PHCP. cp 14:11 Paras Chan MD is Attending Physician. cp 14:27 CT Head C Spine In Process Unspecified. EDMS 14:32 XRAY Chest (1 view) In Process Unspecified. EDMS 14:44 Initial lab(s) drawn, by me, sent to lab. Inserted saline lock: 20 gauge in right iw antecubital area, using aseptic technique. Blood collected. 15:19 [place], RN is Primary Nurse. jl7 15:20 Patient has correct armband on for positive identification. jl7 15:40 No provider procedures requiring assistance completed. IV discontinued, intact, jl7 bleeding controlled, No redness/swelling at site. Pressure dressing applied. Administered Medications: 15:26 Not Given (Physician Discretion): Flexeril (cyclobenzaprine) 10 mg PO once cp 15:30 Drug: Tylenol 1000 mg Route: PO; jl7 15:38 Follow up: Response: Medication administered at discharge. jl7 15:30 Drug: Lidoderm Patch 5 % (700 mg/patch) 1 patches Route: Topical; Site: affected area; jl7 15:38 Follow up: Response: Medication administered at discharge. jl7 15:32 Drug: Ketorolac 30 mg Route: IVP; Site: right antecubital; jl7 15:38 Follow up: Response: Medication administered at discharge. jl7 Outcome: 15:31 Discharge ordered by . cp 15:40 Discharged to home ambulatory. jl7 15:40 Condition: stable 15:40 Discharge instructions given to patient, Instructed on discharge instructions, follow up and referral plans. medication usage, Demonstrated understanding of instructions, follow-up care, medications, Prescriptions given X 3. 15:40 Patient left the ED. jl7 Signatures: Dispatcher [employer] EDMS Iva Moore RN RN iw Calderon, Audri RN RN aa5 Ricardo Lemos PA PA cp Leal, Jahala, RN RN jl7 Rose Sheth am2 Corrections: (The following items were deleted from the chart) 14:11 14:08 Chief complaint: Patient states: "the right side of my chest hurts and the whole aa5 right side of my body hurts (right side of head, right arm, right side of chest, and right leg) and it's been going on for months". Pt c/o throbbing pain to back of head. Pt states "I've been going through some stress" aa5 14:12 14:08 BP 123 / 99; Pulse 93bpm; Resp 18bpm; Spontaneous; Pulse Ox 100% RA; Temp 97.9F aa5 Temporal; aa5
--- NOTE | 2021-06-16 15:32 | EDPHYS ---
Physician Documentation [facility] Name: Sarah Smith Age: 35 yrs Sex: Female : 1985 Arrival Date: 06/16/2021 Time: 13:49 Bed 9 Private MD: ED Physician Paras Chan HPI: 06/16 14:20 This 35 yrs old Female presents to ER via Ambulatory with complaints of cp Headache - right side, Chest Pain. 14:20 The patient complains of pain to the right side of head. The patient describes the cp headache as aching. 14:20 Onset: The symptoms/episode began/occurred daily for months. cp 14:20 Associated signs and symptoms: Pertinent positives: Right side chest pain, right side cp neck pain, right arm pain and right leg pain. Patient reports neck stiffness, Pertinent negatives: altered mental status, fever, vision changes, vomiting, weakness. Severity of symptoms: in the emergency department the pain is unchanged, despite home interventions. 14:20 Patient reports she has been under increased stress lately with of teen cp daughter. 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 - Social history:: Smoking status: Patient denies any tobacco usage or history of. ROS: 14:25 Neuro: Positive for headache, Negative for altered mental status, dizziness, numbness, cp weakness. 14:25 Eyes: Negative for injury, pain, redness, and discharge. cp 14:25 Constitutional: Negative for body aches, chills, fever, poor PO intake. 14:25 ENT: Negative for drainage from ear(s), ear pain, sore throat, difficulty swallowing, difficulty handling secretions. 14:25 Neck: Positive for pain with movement, pain at rest, stiffness, tenderness, of the right side of neck. 14:25 Cardiovascular: Positive for chest pain, of the right side of chest, Negative for edema, palpitations. 14:25 Respiratory: Negative for cough, shortness of breath, wheezing. 14:25 Abdomen/GI: Negative for abdominal pain, vomiting, diarrhea, constipation. 14:25 MS/extremity: Positive for pain, of the right arm, Negative for injury or acute deformity, decreased range of motion, paresthesias, weakness. 14:25 Skin: Negative for rash. 14:25 All other systems are negative. Exam: 14:27 ECG was reviewed by the Attending Physician. cp 14:30 Constitutional: The patient appears in no acute distress, alert, awake, cp non-diaphoretic, non-toxic, well developed, well nourished, obese. 14:30 Head/Face: Normocephalic, atraumatic. cp 14:30 Eyes: Periorbital structures: appear normal, Pupils: equal, round, and reactive to light and accomodation, Extraocular movements: intact throughout, Conjunctiva: normal, no exudate, no injection, Sclera: no appreciated abnormality, Lids and lashes: appear normal, bilaterally. 14:30 ENT: External ear(s): are unremarkable, Nose: is normal, Mouth: Lips: moist, Oral mucosa: pink and intact, moist, Posterior pharynx: Airway: no evidence of obstruction, patent. 14:30 Neck: ROM/movement: pain, that is moderate, with any movement, limited range of motion, that is mild, when rotating to the right, Meningeal signs: are not present, nuchal rigidity, is not appreciated, Lymph nodes: no appreciated lymphadenopathy. 14:30 Chest/axilla: Inspection: normal. 14:30 Cardiovascular: Rate: normal, Rhythm: regular. 14:30 Respiratory: the patient does not display signs of respiratory distress, Respirations: normal, no use of accessory muscles, no retractions, labored breathing, is not present, Breath sounds: are clear throughout, no decreased breath sounds, no stridor, no wheezing. 14:30 Abdomen/GI: Exam negative for discomfort, distension, guarding, Inspection: abdomen appears normal. 14:30 Back: pain, is absent, ROM is normal. 14:30 Neuro: Orientation: to person, place \T\ time. Mentation: is normal, Cerebellar function: is grossly normal, Motor: moves all fours, strength is normal, Sensation: is normal. Vital Signs: 14:08 BP 123 / 99; Pulse 93; Resp 18 S; Temp 97.9(TE); Pulse Ox 100% on R/A; Weight 112.94 kg aa5 (R); Height 5 ft. 4 in. (162.56 cm) (R); 15:30 BP 119 / 84; Pulse 89; Resp 15; Pulse Ox 100% ; Pain 8/10; jl7 14:08 Body Mass Index 42.74 (112.94 kg, 162.56 cm) aa5 MDM: 14:40 Differential diagnosis: cerebral vascular accident, hypoglycemia, hyponatremia, cp intracerebral hemorrhage, migraine, subarachnoid bleed, subdural hematoma, tension headache. 15:19 Patient medically screened. cp 15:30 Data reviewed: vital signs, nurses notes, lab test result(s), EKG, radiologic studies, cp CT scan, plain films. 15:30 Test interpretation: by ED physician or midlevel provider: ECG, plain radiologic cp studies. Counseling: I had a detailed discussion with the patient and/or guardian regarding: the historical points, exam findings, and any diagnostic results supporting the discharge/admit diagnosis, lab results, radiology results, the need for outpatient follow up, a family practitioner, to return to the emergency department if symptoms worsen or persist or if there are any questions or concerns that arise at home. Response to treatment: the patient's symptoms have mildly improved after treatment, VSS. Discussed results of labs, EKG, and radiology studies. Patient requesting discharge to pick child up. Will discharge to home for continued monitoring. 06/16 14:14 Order name: Basic Metabolic Panel; Complete Time: 15:25 cp 06/16 15:25 Interpretation: Normal except: CL 108; GFR 88. cp 06/16 14:14 Order name: CBC with Diff; Complete Time: 15:19 cp 06/16 15:19 Interpretation: Normal except: RBC 5.12; HGB 15.8; HCT 45.3. cp 06/16 14:14 Order name: LFT's; Complete Time: 15:25 cp 06/16 14:14 Order name: Magnesium; Complete Time: 15:25 cp 06/16 14:14 Order name: PT-INR; Complete Time: 15:19 cp 06/16 14:14 Order name: Troponin HS; Complete Time: 15:25 cp 06/16 14:14 Order name: CT Head C Spine; Complete Time: 15:19 cp 06/16 15:20 Interpretation: Reviewed report. 06/16 14:14 Order name: XRAY Chest (1 view); Complete Time: 15:19 cp 06/16 15:27 Order name: Urine Dipstick-Ancillary; Complete Time: 15:33 EDMS 06/16 15:34 Interpretation: Normal except: UBLD Trace-intact; UPROT Trace; UESTR Trace. cp 06/16 14:14 Order name: Urine Dipstick-Ancillary (obtain specimen); Complete Time: 15:38 cp 06/16 14:14 Order name: Urine Test (obtain specimen); Complete Time: 15:38 cp 06/16 14:14 Order name: EKG; Complete Time: 14:14 cp 06/16 14:14 Order name: EKG - Nurse/Tech; Complete Time: 14:44 cp 06/16 14:14 Order name: IV Saline Lock; Complete Time: 14:44 cp 06/16 14:14 Order name: Labs collected and sent; Complete Time: 15:20 cp 06/16 14:14 Order name: O2 Per Protocol; Complete Time: 15:20 cp 06/16 14:14 Order name: O2 Sat Monitoring; Complete Time: 15:20 cp EC:27 Rate is 91 beats/min. Rhythm is regular. WI interval is normal. QRS interval is normal. cp QT interval is normal. T waves are Inverted in leads III, aVR. Interpreted by me. Reviewed by me. Administered Medications: 15:26 Not Given (Physician Discretion): Flexeril (cyclobenzaprine) 10 mg PO once cp 15:30 Drug: Tylenol 1000 mg Route: PO; jl7 15:38 Follow up: Response: Medication administered at discharge. jl7 15:30 Drug: Lidoderm Patch 5 % (700 mg/patch) 1 patches Route: Topical; Site: affected area; jl7 15:38 Follow up: Response: Medication administered at discharge. jl7 15:32 Drug: Ketorolac 30 mg Route: IVP; Site: right antecubital; jl7 15:38 Follow up: Response: Medication administered at discharge. jl7 Disposition: 06/17 07:06 Co-signature as Attending Physician, Paras Chan MD. rn Disposition Summary: 06/16/21 15:31 Discharge Ordered Location: Home cp Problem: new cp Symptoms: have improved cp Condition: Stable cp Diagnosis - Headache cp - Cervicalgia cp - Chest pain, unspecified cp Followup: cp - With: Private Physician - When: 2 - 3 days - Reason: Recheck today's complaints Discharge Instructions: - Discharge Summary Sheet cp - Nonspecific Chest Pain, Adult cp - Tension Headache, Adult cp - Musculoskeletal Pain cp Forms: - Medication Reconciliation Form cp - Thank You Letter cp - Antibiotic Education cp - Prescription Opioid Use cp Prescriptions: - Lidoderm 5 % Topical adhesive patch,medicated - apply 1 patch by TOPICAL route once daily; 1 box; Refills: 0, Product Selection cp Permitted - Cyclobenzaprine 10 mg Oral Tablet - take 1 tablet by ORAL route every 8 hours As needed; 20 tablet; Refills: 0, cp Product Selection Permitted - Diclofenac Sodium 75 mg Oral tablet,delayed release (DR/EC) - take 1 tablet by ORAL route 2 times per day; 20 tablet; Refills: 0, Product cp Selection Permitted Signatures: Dispatcher [employer] Paras Mena MD MD rn Calderon, Audri, RN RN aa5 Ricardo Lemos PA PA cp Leal, Jahala RN RN jl7
[2021-06-16 18:28] VITALS: TEMP 97.9; O2SAT 100
[2021-06-16 18:29] VITALS: BP 119/84
--- NOTE | 2021-06-17 09:34 | EKG ---
Test Date: 2021-06-16 Test Time: 14:20:07 Manager Of Program: JINNY MEASUREMENT RESULTS: Intervals: Rate: 91 MO: 156 QRSD: 76 QT: 332 QTc: 408 [place]: P: 34 MO: 156 QRS: 76 T: 5 INTERPRETIVE STATEMENTS: Normal sinus rhythm Low voltage QRS Nonspecific T wave abnormality Abnormal ECG No previous ECG available for comparison Electronically Signed On 06-17-21 09:31:54 CDT by Indra Prado
== END 2021-06-16 15:40 | disposition home or self-care (01) ==
LOC: ER 13:48
DX: R51.9 Headache, unspecified (principal); R07.9 Chest pain, unspecified; M54.2 Cervicalgia; Z98.82 Breast implant status; Z88.0 Allergy status to penicillin
CPT/HCPCS: 36415; 70450; 71045; 72125; 80048; 80076; 81003; 83735; 84484; 85025; 85610; 93005; 96374; 99284

== ENCOUNTER 2021-07-15 00:16 | Emergency (ER) | payer OTHER ==
--- OUTSIDE RECORDS SUMMARY | 2021-07-15 00:19 | XMS REPORT | Continuity of Care Document ---
:1985 Author Organization [facility] t Address [address] [place] [address] Care Team Providers Name Role Phone Asked, [...] Effective Date Expiration Date S jose elias [facility] [id number] 2019 MEDICAID 00:00:00 [id number] 2019 [facility] 00:00:00 [facility] [id number] 020-PresentO MEDICAID OF [place] [id number] 2019 2019 00:00:00 00:00:00 Problems This patient has no known problems. Allergies, Adverse Reactions, Alerts Allergy Allergy Status Severity Reaction(s) Onset Inactive Treating Comm ents Source Name Type Date Date Clinician Penicill Propensi Active Swelling Meth rishi ins ty to 4-12 st adverse 00:00: Hospita reaction 00 l s to drug Penicill DA Active U 2019-02 [facility] ins 02-23 [place] 00:[facility]: [facility] [address] Penicill DA Active U UNKNOWN 2019-02 [facility] ins 02-23 [place] 00:00: Health [address] PENICILL DRUG Active Hives 2018-02 Univers IN INGREDI 2-31 ity of 00:00: [place] [id number] [facility] Social History Social Habit Start Date Stop Date Quantity Comments Source History SDWY [facility] Alcohol Std Drinks Hospit al History [facility] Tobacco use and 2020-06-03 2020-06-03 Never used [facility] exposure 00:00:00 00:00:00 Hospital Alcohol intake 2020-06-03 2020-06-03 Lifetime [facility] 00:00:00 00:00:00 non-drinker Hospital (finding) History SDOH 2020-06-03 2020-06-03 1 [facility] Alcohol Frequency 00:00:00 00:00:00 Hospita l Sex Assigned At [birth year] [facility] 00:00:00 00:00:00 Hospital Smoking Status Start Date Stop Date Source Never smoker [facility] Medications Ordered Filled Start Stop [...] to 30 days. benzonatate 2020- No 100mg [id number] Take 1 [facility] (TESSALON) 4-12 04-[id number] 100 MG 00:00: 04:59 3D (100 mg Hospita capsule 00 :00 total) by l mouth 3 (three) times a day as needed for cough for up to 5 days. Vital Signs Vital Name Observation Time Observation Value Comments Source Body weight 2020-06-03 23:20:00 104.327 [facility] BMI 2020-06-03 23:20:00 39.48 kg/m2 [facility] Body height 2020-06-03 23:20:00 162.6 cm [facility] Systolic blood 2020-06-03 23:19:54 125 mm[Hg] [facility] pressure Diastolic blood 2020-06-03 23:19:54 74 mm[Hg] [facility] pressure Heart rate 2020-06-03 23:19:54 94 /min [facility] Body temperature 2020-06-03 23:19:54 37.28 Jie [facility] Respiratory rate 2020-06-03 23:19:54 20 /min [facility] Oxygen saturation in 2020-06-03 23:19:54 98 /min [facility] Arterial blood by Pulse oximetry Procedures Procedure Date / Time Performing Clinician Source Performed ECG 12-LEAD 2020-06-04 00:28:54 [facility] zeeshantal GROUP A STREP, RAPID 2020-06-04 00:15:00 [facility] COMPLETE BLD COUNT 2020-06-04 00:15:00 Kevin [facility] W/AUTO DIFF BASIC METABOLIC PANEL 2020-06-04 00:15:00 [facility] TROPONIN, I-STAT 2020-06-04 00:15:00 Gigi Brown ospital HCG QUALITATIVE, URINE 2020-06-04 00:15:00 [facility] SCREEN URINALYSIS 2020-06-04 00:15:00 Gigi Brown spital ESTIMATED GFR 2020-06-04 00:15:00 [facility] CHEST 2 VW 2020-06-03 23:54:55 [facility] PRE[facility]INARY 2020-06-03 23:30:13 [facility] INTERPRETATION Plan of Care Planned Activity Planned Date Details Comments Source Future Scheduled Test COVID-19 VACCINE (1) [facility] [code = COVID-19 VACCINE (1)] Future Scheduled Test Hepatitis C screening [facility] (procedure) [code = 406783875] Future Scheduled Test [facility] malignant neoplasm of cervix (procedure) [code = 822090792] Future Scheduled Test INFLUENZA VACCINE [facility] [code = INFLUENZA VACCINE] Encounters Start End Encounter Admission Attending Care Care Encounter Source Date/Time Date/Time Type Type Clinicians Facility Department ID 2020-12-19 Outpatient P [facility] PE[facility]A [id number] Univers 14:52:42 [facility] 2020-12-19 Outpatient [facility] [id number] Univers 14:25:49 ity [facility] 2019-12-25 Inpatient HCANW ARIELLE [id number] 12:39:00 [id number] [facility] 2020-06-14 2020-06-14 [facility] [id number] Univers 15:00:00 15:00:00 [facility] [id number] [facility] 2020-06-03 2020-06-03 Emergency Ho, Gigi [id number] [facility] 18:19:00 20:05:[id number] [id number] Hospit [id number] l .8 2019-10-31 2019-10-31 Outpatient [facility] [id number] Univers 14:30:00 14:30:00 [id number] [facility] 2019-08-24 2019-08-24 Outpatient Francia CHRISTINE [facility] [id number] Univers 09:30:00 09:30:00 WONDIFUL ity o f [facility] 2019-08-24 2019-08-24 Outpatient R CHRISTINE [facility] [id number] Univers 09:00:00 09:00:00 WONDIFUL ity o f [facility] 2019-08-11 2019-08-11 Outpatient R LOVE, [facility] [id number] Univers 08:30:00 08:30:00 BART [id number] ity [facility] 2019-08-11 2019-08-11 Outpatient R LOVE, [facility] [id number] Univers 08:30:00 08:30:00 BART [facility] 2019-08-02 2019-08-02 Nurse Nurse, [facility] [id number] 13:36:00 14:05:42 Visit Women's Tereza [id number] [facility] [id number] Professio [id number] [address] 2019-08-02 2019-08-02 Outpatient R [facility] [id number] Univers 14:00:00 14:00:00 [id number] ity [facility] 2019-08-02 2019-08-02 Outpatient R [facility] [id number] Univers 14:00:00 14:00:00 ity [facility] 2019-08-02 2019-08-02 Orders Doctor CARLOTA [id number] 00:00:00 00:00:00 Only Unassigned, STU [id number] [place] [facility] [id number] [id number] 2019-07-06 2019-07-06 Office Zoraida Roque [facility] [id number] 13:05:07 14:04:09 Visit [place] [id number] [place] 4.2.7.2.686 Professio [id number] [address] 2019-07-06 2019-07-06 Outpatient R ZORAIDA ROQUE [facility] [id number] Univers 13:00:00 13:00:00 [id number] [facility] 2019-07-06 2019-07-06 Outpatient R ZORAIDA ROQUE [facility] [id number] Univers 13:00:00 13:00:00 [facility] 2019-06-15 2019-06-15 Outpatient R ALEMAN [facility] [id number] Univers 09:30:00 09:30:00 BART [id number] [facility] 2019-06-15 2019-06-15 Outpatient R LOVE [facility] [id number] Univers 09:30:00 09:30:00 [facility] 2019-05-25 2019-05-25 Outpatient R LOVE [facility] [id number] Univers 10:30:00 10:30:00 BART [id number] [facility] 2019-05-25 2019-05-25 Outpatient R LOVE [facility] [id number] Univers 10:30:00 10:30:00 BART [facility] 2019-05-17 2019-05-17 Outpatient ZORAIDA PASCUAL [facility] [id number] Univers 09:00:00 09:00:00 [id number] [facility] 2019-05-17 2019-05-17 Outpatient R ZORIADA ROQUE [facility] [id number] Univers 09:00:00 09:00:00 [facility] 2019-05-11 2019-05-11 Outpatient R LOVE [facility] [id number] Univers 15:15:00 15:15:00 BART [facility] 2019-05-05 2019-05-05 Outpatient R LOVE [facility] [id number] Univers 08:15:00 08:15:00 BART [id number] [facility] 2019-05-05 2019-05-05 Outpatient R LOVE [facility] [id number] Univers 08:15:00 08:15:00 BART [facility] 2019-02-02 2019-02-02 Emergency X MYNOR III, [facility] ERT [id number] Univers 16:33:54 21:30:00 DESTINY [facility] Results Test Description Test Time Test Comments Results Result Comments Source ECG 12 lead 2020-06-05 02:38:51 Test Item Value Reference Range Interpretation Comme nts Ventricular rate (test code = 253) Atrial rate (test code = 255) NV interval (test code = 266) QRSD interval [...] , age undetermined-Abnormal ECG-No previous ECGs available- [facility] 2 [id number] 00:26:22EXAMINATION: XR CHEST 2 VW CLINICAL HISTORY: [...] clear Age related changes in the osseous structures...[facility] Interpretation - Not an Order 2020-06-03 23:30:13Gigi Brown MD 06/03/2020 7:48 [facility] ED Preliminary Interpretation - Not an OrderPerformed by: Gigi Brown MDAuthorized by: Gigi Brown MD ECG reviewed by ED Physician in the absence of a nurse reviewer: yes Interpretation: Interpretation: non-specific Rate: ECG rate: 87 ECG rate assessment: normal Rhythm: Rhythm: sinus rhythm ST segments: ST segments: NormalT waves: Twaves: non-specific and flatteningMethodist HospitalURINALYSIS [id number] 14:09:00 Test Item Value Reference Range Interpretation [...] MUCU) 1+ /LPF NONE SEEN UR HCG [id number] 14:08:00 Test Item Value Reference Range Interpretation Comments UR HCG QUAL (test code = HCGQLU) NEGATIVE NEGATIVE
--- NOTE | 2021-07-15 03:01 | ER ---
Nurse's Notes [facility] [place] [place] Name: Sarah Smith Age: 35 yrs Sex: Female : 1985 Arrival Date: 07/15/2021 Time: 00:19 Bed 1 Private MD: Diagnosis: Influenza due to identified novel influenza A virus Presentation: 07/15 00:22 Chief complaint: Patient states: "I am just now starting to feel short of breath and tw5 have chest pain.". Coronavirus screen: Vaccine status: Patient reports being unvaccinated. Ebola Screen: Patient negative for fever greater than or equal to 101.5 degrees Fahrenheit, and additional compatible Ebola Virus Disease symptoms Patient denies exposure to infectious person. Patient denies travel to an Ebola-affected area in the 21 days before illness onset. Initial Sepsis Screen: Does the patient meet any 2 criteria? HR > 90 bpm. Does the patient have a suspected source of infection? Yes: Productive cough/pneumonia. Risk Assessment: Do you want to hurt yourself or someone else? Patient reports no desire to harm self or others. Onset of symptoms is unknown. 00:22 Method Of Arrival: Ambulatory tw5 00:22 Acuity: VIPIN 3 tw5 Triage Assessment: 00:24 General: Appears uncomfortable, obese, Behavior is calm, cooperative, appropriate for tw5 age. Pain: Pain currently is 8 out of 10 on a pain scale. Cardiovascular: Capillary refill < 3 seconds Patient's skin is warm and dry. 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 - Social history:: Smoking status: Patient denies any tobacco usage or history of. Screenin:45 Abuse screen: Denies threats or abuse. Denies injuries from another. Nutritional lp1 screening: No deficits noted. Tuberculosis screening: No symptoms or risk factors identified. Fall Risk None identified. Assessment: 01:30 General: Appears uncomfortable, Behavior is appropriate for age. Pain: Complains of lp1 pain in chest Pain radiates to abdomen Pain began gradually. Neuro: Level of Consciousness is awake, alert, obeys commands. Cardiovascular: Patient's skin is warm and dry. Respiratory: Respiratory effort is even, unlabored, the patient has mild shortness of breath Parent/caregiver reports the patient having shortness of breath cough that is. GI: Abdomen is non-distended, Reports bloating. : No signs and/or symptoms were reported regarding the genitourinary system. EENT: No signs and/or symptoms were reported regarding the EENT system. Derm: Skin is pink, warm \\T\\ dry. Musculoskeletal: No deficits noted. 02:02 Reassessment: Patient complaint of persistent cough, chest tightness. lp1 Vital Signs: 00:22 BP 109 / 57; Pulse 109; Resp 18; Temp 98.6(O); Pulse Ox 97% on R/A; Weight 108.86 kg; tw5 Height 5 ft. 4 in. (162.56 cm); Pain 8/10; 02:02 BP 111 / 89; Pulse 98; Resp 18; Pulse Ox 99% on R/A; lp1 00:22 Body Mass Index 41.20 (108.86 kg, 162.56 cm) tw5 ED Course: 00:19 Patient arrived in ED. bp1 00:24 Triage completed. tw5 00:24 Arm band placed on right wrist. tw5 00:46 Flody Pal MD is Attending Physician. kdr 01:12 CXR XRAY In Process Unspecified. EDMS 01:29 Belle Quiroz, RN is Primary Nurse. lp1 01:46 Patient has correct armband on for positive identification. lp1 01:46 Patient maintains SpO2 saturation greater than 95% on room air. lp1 03:06 No provider procedures requiring assistance completed. Patient did not have IV access lp1 during this emergency room visit. Administered Medications: No medications were administered Medication: 01:46 VIS not applicable for this client. lp1 Outcome: 03:00 Discharge ordered by . kdr 03:18 Discharged to home ambulatory. lp1 03:18 Condition: good 03:18 Discharge instructions given to patient, Instructed on discharge instructions, follow up and referral plans. medication usage, Demonstrated understanding of instructions, follow-up care, medications, Prescriptions given X 1. 03:18 Patient left the ED. lp1 Signatures: Dispatcher [employer] EDLA Floyd Pal MD MD kdr Pena, Laura, RN RN lp1 Kendal, Latia [facility] Carlie Vasquez tw5
--- NOTE | 2021-07-15 03:01 | EDPHYS ---
Physician Documentation [facility] Name: Sarah Smith Age: 35 yrs Sex: Female : 1985 Arrival Date: 07/15/2021 Time: 00:19 Bed 1 Private MD: ED Physician Floyd Pal HPI: 07/15 19:39 This 35 yrs old Female presents to ER via Ambulatory with complaints of Chest kdr Pain > 30 y/o, Shortness Of Breath. 19:39 The patient or guardian reports chest pain that is located primarily in the substernal kdr area, chest diffusely. The pain does not radiate. Associated signs and symptoms: Pertinent positives: cough, shortness of breath, Pertinent negatives: abdominal pain, diaphoresis, dizziness, headache, lower extremity pain, lower extremity swelling, lightheadedness, nausea, near syncope, palpitations, recent travel. The chest pain is described as aching. Duration: The patient or guardian reports a single episode, that is still ongoing. Modifying factors: The symptoms are alleviated by nothing. the symptoms are aggravated by breathing, cough, deep breath. Severity of pain: At its worst the pain was mild in the emergency department the pain is unchanged. The patient has not experienced similar symptoms in the past. The patient has not recently seen a physician. 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 - Social history:: Smoking status: Patient denies any tobacco usage or history of. ROS: 19:39 Constitutional: Negative for fever, chills, and weight loss, Eyes: Negative for injury, kdr pain, redness, and discharge, ENT: Negative for injury, pain, and discharge, Neck: Negative for injury, pain, and swelling, Abdomen/GI: Negative for abdominal pain, nausea, vomiting, diarrhea, and constipation, Back: Negative for injury and pain, : Negative for injury, bleeding, discharge, and swelling, MS/Extremity: Negative for injury and deformity, Skin: Negative for injury, rash, and discoloration, Neuro: Negative for headache, weakness, numbness, tingling, and seizure activity. Psych: Negative for depression, anxiety, suicide ideation, homicidal ideation, and hallucinations, Allergy/Immunology: Negative for hives, rash, and allergies, Endocrine: Negative for neck swelling, polydipsia, polyuria, polyphagia, and marked weight changes, Hematologic/Lymphatic: Negative for swollen nodes, abnormal bleeding, and unusual bruising. 19:39 Cardiovascular: Positive for chest pain, Negative for edema, orthopnea, palpitations, paroxysmal nocturnal dyspnea. 19:39 Respiratory: Positive for cough, with no reported sputum, dyspnea on exertion, Negative for hemoptysis, orthopnea, pleurisy, sputum production, wheezing. Exam: 19:39 Constitutional: This is a well developed, well nourished patient who is awake, alert, kdr and in no acute distress. Head/Face: Normocephalic, atraumatic. Eyes: Pupils equal round and reactive to light, extra-ocular motions intact. Lids and lashes normal. Conjunctiva and sclera are non-icteric and not injected. Cornea within normal limits. Periorbital areas with no swelling, redness, or edema. Neck: Trachea midline, no thyromegaly or masses palpated, and no cervical lymphadenopathy. Supple, full range of motion without nuchal rigidity, or vertebral point tenderness. No Meningismus. Chest/axilla: Normal chest wall appearance and motion. Nontender with no deformity. No lesions are appreciated. Cardiovascular: Regular rate and rhythm with a normal S1 and S2. No gallops, murmurs, or rubs. Normal PMI, no JVD. No pulse deficits. Respiratory: Lungs have equal breath sounds bilaterally, clear to auscultation and percussion. No rales, rhonchi or wheezes noted. No increased work of breathing, no retractions or nasal flaring. Abdomen/GI: Soft, non-tender, with normal bowel sounds. No distension or tympany. No guarding or rebound. No evidence of tenderness throughout. Back: No spinal tenderness. No costovertebral tenderness. Full range of motion. Skin: Warm, dry with normal turgor. Normal color with no rashes, no lesions, and no evidence of cellulitis. MS/ Extremity: Pulses equal, no cyanosis. Neurovascular intact. Full, normal range of motion. Neuro: Awake and alert, GCS 15, oriented to person, place, time, and situation. Cranial nerves II-XII grossly intact. Motor strength 5/5 in all extremities. Sensory grossly intact. Cerebellar exam normal. Normal gait. Psych: Awake, alert, with orientation to person, place and time. Behavior, mood, and affect are within normal limits. Vital Signs: 00:22 BP 109 / 57; Pulse 109; Resp 18; Temp 98.6(O); Pulse Ox 97% on R/A; Weight 108.86 kg; tw5 Height 5 ft. 4 in. (162.56 cm); Pain 8/10; 02:02 BP 111 / 89; Pulse 98; Resp 18; Pulse Ox 99% on R/A; lp1 00:22 Body Mass Index 41.20 (108.86 kg, 162.56 cm) tw5 MDM: 03:00 Patient medically screened. kdr 19:39 Data reviewed: vital signs, lab test result(s), radiologic studies. Counseling: I had a kdr detailed discussion with the patient and/or guardian regarding: the historical points, exam findings, and any diagnostic results supporting the discharge/admit diagnosis, lab results, radiology results, the need for outpatient follow up. 07/15 00:53 Order name: Strep; Complete Time: 02:57 [facility] 07/15 00:53 Order name: CXR XRAY [facility] 07/15 01:47 Order name: SARS-COV-2 RT PCR; Complete Time: 02:57 [facility] 07/15 01:49 Order name: Influenza Screen (A ; Complete Time: 02:57 [facility] 07/15 02:18 Order name: Throat Culture [facility] Administered Medications: No medications were administered Disposition Summary: 07/15/21 03:00 Discharge Ordered Location: Home kdr Problem: new kdr Symptoms: have improved kdr Condition: Stable kdr Diagnosis - Influenza due to identified novel influenza A virus kdr Followup: kdr - With: Private Physician - When: 2 - 3 days - Reason: If symptoms return, Further diagnostic work-up, Recheck today's complaints, Continuance of care, Re-evaluation by your physician Discharge Instructions: - Discharge Summary Sheet kdr - Abdominal Pain, Adult, [id number]-[id number] kdr - Fever, Adult, [id number]-Jnwa kdr - Influenza, Adult, Hvzh-et-Pbwv kdr Forms: - Medication Reconciliation Form kdr - Thank You Letter kdr - Antibiotic Education kdr Prescriptions: - Tamiflu 75 mg Oral Capsule - take 1 tablet by ORAL route every 12 hours for 5 days; 10 tablet; Refills: 0, kdr Product Selection Permitted Signatures: Dispatcher [employer] Floyd Rangel MD MD kdr Wood, Tiffany tw5 Corrections: (The following items were deleted from the chart) 01:48 00:51 COVID-19/FLU A+B+MOL.LAB.BRZ ordered. ED EDMS
[2021-07-15 03:23] VITALS: TEMP 98.6
[2021-07-15 03:27] VITALS: BP 111/89; O2SAT 99
--- NOTE | 2021-07-15 15:45 | RAD REPORT ---
EXAM DESCRIPTION: RAD - Chest Single View - 07/15/2021 1:10 am CLINICAL HISTORY: 5 years Female, Cough COMPARISON: Chest radiograph dated 06/16/2021 FINDINGS: No focal lung consolidation. No pleural effusion. No pneumothorax. Cardiomediastinal silhouette is within normal limits. No acute osseous abnormality. IMPRESSION: No acute cardiopulmonary disease. Electronically signed by: Jose F Maria DO 07/15/2021 1:33 AM CDT Due to temporary technical issues with the PACS/Fluency reporting system, reports are being signed by the in house radiologists without review as a courtesy to insure prompt reporting. The interpreting radiologist is fully responsible for the content of the report.
== END 2021-07-15 03:18 | disposition home or self-care (01) ==
LOC: ER 00:16
DX: J10.1 Influenza due to other identified influenza virus with other respiratory manifestations (principal); Z20.822 Contact with and (suspected) exposure to COVID-19; Z98.82 Breast implant status; Z88.0 Allergy status to penicillin
CPT/HCPCS: 87070; 87081; 87804 ×2; 71045; 99284; U0003

== ENCOUNTER 2021-10-04 18:27 | Emergency (ER) | payer OTHER ==
--- OUTSIDE RECORDS SUMMARY | 2021-10-04 18:31 | XMS REPORT | Continuity of Care Document ---
:1985 Author Organization [facility] t Address [address] [place] [address] Care Team Providers Name Role Phone Asked, No Pcp Primary Care Physician Unavailable BART ALEMAN Attending Clinician Unavailable Gigi Brown MD Attending Clinician TAVO KING Attending Clinician Unavailable Nurse, [facility] Attending Clinician Unavailable Doctor Unassigned, [place] Attending Clinician Unavailable Zoraida Roque MD Attending Clinician ZORAIDA ROQUE Attending Clinician Unavailable DESTINY LOWE III Attending Clinician Unavailable RAZIA WHEATLEY Admitting Clinician Unavailable DESTINY LOWE III Admitting Clinician Unavailable Payers Payer Name Policy Type Policy Number Effective Date Expiration Date S jose elias [facility] [id number] 2019 MEDICAID 00:00:00 [place] [id number] 2019 [facility] 00:00:00 [facility] [id number]/[id number] 020-PresentHMO MEDICAID [place] [id number] 2019 2019 00:00:00 00:00:00 Problems This patient has no known problems. Allergies, Adverse Reactions, Alerts Allergy Allergy Status Severity Reaction(s) Onset Inactive Treating Comm ents Source Name Type Date Date Clinician Penicill Propensi Active Swelling Meth rishi ins ty to 4-12 st adverse 00:00: Hospita reaction 00 l s to drug Penicill DA Active U 2019-02 [facility] ins [facility]-23 [place] [facility]: [facility] 00 are [facility] st Penicill DA Active U UNKNOWN 2019-02 [facility] ins 02-23 [place] 00:00: [facility] 00 are [facility] st PENICILL DRUG Active Hives 2018- Univers IN INGREDI 2- ity of 00:00: [place] [id number] [facility] Social History Social Habit Start Date Stop Date Quantity Comments Source History [facility] Std Drinks Hospit al History [facility] Binge [facility] Tobacco use and 2020-06-03 2020-06-03 Never used [facility] exposure 00:00:00 00:00:00 Hospital Alcohol intake 2020-06-03 2020-06-03 Lifetime [facility] 00:00:00 00:00:00 non-drinker Hospital (finding) History SDOH 2020-06-03 2020-06-03 1 [facility] Alcohol Frequency 00:00:00 00:00:00 Hospita l Sex Assigned At [birth year] [facility] 00:00:00 00:00:00 Hospital Smoking Status Start Date Stop Date Source Never smoker [facility] Hospit [facility] Medications Ordered Filled Start Stop Current Ordering Indication Dosage Frequency Signature Comments Components Source Medication Medication Date Date Medication? Clinician (SIG) Name Name phentermine Yes 37.5mg QD Take 37.5 [facility] 37.5 MG 4-[address] capsule 23:22: mouth Hospita 35 every l morning. albuterol 2020- No 2{puff} Q4H Inhale 2 [facility] (PROAIR 06-03 05-[address] HFA) 90 00:00: 04:59 every 4 Hospit a mcg/actuati 00 :00 (four) l on inhaler hours as needed for wheezing for up to 30 days. benzonatate 2020- No 100mg [id number] Take 1 [facility] (TESSALON) 06-03-[id number] 100 MG 00:00: 04:59 3D (100 mg Hospita capsule 00 :00 total) by l mouth 3 (three) times a day as needed for cough for up to 5 days. Vital Signs Vital Name Observation Time Observation Value Comments Source Body height 2020-06-03 23:20:00 162.6 cm [facility] Body weight 2020-06-03 23:20:00 104.327 kg [facility] BMI 2020-06-03 23:20:00 39.48 kg/m2 [facility] Systolic blood 2020-06-03 23:19:54 125 mm[Hg] [facility] pressure Diastolic blood 2020-06-03 23:19:54 74 mm[Hg] [facility] pressure Heart rate 2020-06-03 23:19:54 94 /min [facility] Body temperature 2020-06-03 23:19:[address] [facility] Respiratory rate 2020-06-03 23:19:54 20 /min [facility] Oxygen saturation in 2020-06-03 23:19:54 98 /min [facility] Arterial blood by Pulse oximetry Procedures Procedure Date / Time Performing Clinician Source Performed ECG 12-LEAD 2020-06-04 00:28:54 [facility] GROUP A STREP, RAPID 2020-06-04 00:15[facility] COMPLETE BLD COUNT 2020-06-04 00:15:00 [facility] W/AUTO DIFF BASIC METABOLIC PANEL 2020-06-04 00:15:00 [facility] TROPONIN, I-STAT 2020-06-04 00:15:[facility]AL[facility], URINE 2020-06-04 00:15:00 [facility] SCREEN URINALYSIS 2020-06-04 00:15:00 Gigi Brown spital ESTIMATED GFR 2020-06-04 00:15:00 [facility] CHEST 2 VW 2020-06-03 23:54:55 [facility] ECG ED PRELIMINARY 2020-06-03 23:30:13 [facility] INTERPRETATION Plan of Care Planned Activity Planned Date Details Comments Source Future Scheduled Test COVID-19 VACCINE (1) [facility] [code = COVID-19 VACCINE (1)] Future Scheduled Test Hepatitis C screening [facility] (procedure) [code = 752370675] Future Scheduled Test Screening for [facility] malignant neoplasm of cervix (procedure) [code = 720611078] Future Scheduled Test INFLUENZA VACCINE [facility] [code = INFLUENZA VACCINE] Encounters Start End Encounter Admission Attending Care Care Encounter Source Date/Time Date/Time Type Type Clinicians Facility Department ID 2020-12-19 Outpatient P [facility] [id number] Univers 14:52:42 ity [facility] 2020-12-19 Outpatient [facility] [id number] Univers 14:25:49 ity [facility] 2019-12-25 Inpatient HCANW ARIELLE [id number] 12:39:00 [id number] [facility] 2020-06-14 2020-06-14 [facility] [id number] Univers 15:00:00 15:00:00 [facility] [id number] [facility] 2020-06-03 2020-06-03 Emergency Ho, Gigi [id number] [facility] 18:19:00 20:05:00 Dee [id number] Hospit [id number] l .8 2019-10-31 2019-10-31 Outpatient [facility] [id number] Univers 14:30:00 14:30:00 ity [facility] 2019-08-24 2019-08-24 Outpatient Francia KING [facility] [id number] Univers 09:30:00 09:30:00 WONDIFUL ity o f [facility] 2019-08-24 2019-08-24 Outpatient Francia KING [facility] [id number] Univers 09:00:00 09:00:00 WONDIFUL ity o f [facility] 2019-08-11 2019-08-11 Outpatient [facility] [id number] Univers 08:30:00 08:30:00 BART [id number] ity [facility] 2019-08-11 2019-08-11 Outpatient [facility] [id number] Univers 08:30:00 08:30:00 BART ity [facility] 2019-08-02 2019-08-02 Nurse Nurse, [facility] [id number] 13:36:00 14:05:42 Visit Dunia'cristóbal Starks [id number] [facility] [id number] Professio [id number] [address] 2019-08-02 2019-08-02 Outpatient R [facility] [id number] Univers 14:00:00 14:00:00 [id number] ity [facility] 2019-08-02 2019-08-02 Outpatient R [facility] [id number] Univers 14:00:00 14:00:00 ity [facility] 2019-08-02 2019-08-02 Orders Doctor CARLOTA [id number] 00:00:00 00:00:00 Only Unassigned, STU [id number] [place] [facility] [id number] [id number] 2019-07-06 2019-07-06 Office Zoraida Roque [facility] [id number] 13:05:07 14:04:09 Visit Greg Starks [id number] [place] [id number] Professio [id number] 2019-07-06 2019-07-06 Outpatient R ZORAIDA ROQUE [facility] [id number] Univers 13:00:00 13:00:00 [id number] ity [facility] 2019-07-06 2019-07-06 Outpatient R ZORAIDA ROQUE [facility] [id number] Univers 13:00:00 13:00:00 ity [facility] 2019-06-15 2019-06-15 Outpatient R ALEMAN [facility] [id number] Univers 09:30:00 09:30:00 BART [id number] ity [facility] 2019-06-15 2019-06-15 Outpatient R LOVE [facility] [id number] Univers 09:30:00 09:30:00 BART ity [facility] 2019-05-25 2019-05-25 Outpatient R LOVE [facility] [id number] Univers 10:30:00 10:30:00 BART [facility] 2019-05-25 2019-05-25 Outpatient R LOVE [facility] [id number] Univers 10:30:00 10:30:00 BART [facility] 2019-05-17 2019-05-17 Outpatient R ZORAIDA ROQUE [facility] [id number] Univers 09:00:00 09:00:00 [id number] [facility] 2019-05-17 2019-05-17 Outpatient R ZORAIDA ROQUE [facility] [id number] Univers 09:00:00 09:00:00 [facility] 2019-05-11 2019-05-11 Outpatient R LOVE [facility] [id number] Univers 15:15:00 15:15:00 BART [facility] 2019-05-05 2019-05-05 Outpatient R LOVE [facility] [id number] Univers 08:15:00 08:15:00 BART [id number] [facility] 2019-05-05 2019-05-05 Outpatient R LOVE [facility] [id number] Univers 08:15:00 08:15:00 BART [facility] 2019-02-02 2019-02-02 Emergency X MYNOR III, [facility] ERT [id number] Univers 16:33:54 21:30:00 DESTINY [facility] Results Test Description Test Time Test Comments [...] , age undetermined-Abnormal ECG-No previous ECGs available- [facility] [id number] 00:26:22EXAMINATION: XR CHEST 2 VW CLINICAL HISTORY: 34 years Female evaluate for PNA COMPARISON: None. IMPRESSION: The cardiomediastinal silhouette is not enlarged The lungs are clear Age related changes in the osseous structures. . . Interface, Radiology Results Incoming - 06/03/2020 7:29 PM CDT EXAMINATION: XR CHEST 2 VWCLINICAL HISTORY: 34 years Female evaluate for PNACOMPARISON: None.IMPRESSION:The cardiomediastinal silhouette is not enlarged The lungs are clear Age related changes in the osseous structures... [facility] ED Preliminary Interpretation - Not an [id number] 23:30:13Gigi Brown MD 06/03/2020 7:48 [facility] ED Preliminary Interpretation - Not an OrderPerformed by: Gigi Brown MDAuthorized by: Gigi Brown MD ECG reviewed by ED Physician in the absence of a child care counselor: yes Interpretation: Interpretation: non-specific Rate: ECG rate: 87 ECG rate assessment: normal Rhythm: Rhythm: sinus rhythm ST segments: ST segments: NormalT waves: T waves: non-specific and flatteningMethodist HospitalURINALYSIS [id number] 14:09:00 Test Item Value Reference Range Interpretation [...] MUCU) 1+ /LPF NONE SEEN UR HCG [id number] 14:08:00 Test Item Value Reference Range Interpretation Comments UR HCG QUAL (test code = HCGQLU) NEGATIVE NEGATIVE
[2021-10-04] MEDS ORDERED: KETOROLAC 30 MG/ML INJ ONE (18:57)
--- NOTE | 2021-10-04 19:49 | RAD REPORT ---
EXAM DESCRIPTION: RAD - Lumbar Spine 3 Views - 10/04/2021 7:36 pm CLINICAL HISTORY: Back pain FINDINGS: No fracture or dislocation is seen. Mild spondylosis involves the lumbar spine
--- NOTE | 2021-10-04 19:50 | RAD REPORT ---
EXAM DESCRIPTION: RAD - Pelvis - 10/04/2021 7:36 pm CLINICAL HISTORY: Pelvic pain status post injury FINDINGS: No fracture or dislocation is seen.
--- NOTE | 2021-10-04 19:51 | RAD REPORT ---
EXAM DESCRIPTION: RAD - Foot Left 3 View - 10/04/2021 7:36 pm CLINICAL HISTORY: Left Foot pain status post injury FINDINGS: No fracture or dislocation is seen.
--- NOTE | 2021-10-04 19:57 | ER ---
Nurse's Notes [facility] Name: Sarah Smith Age: 35 yrs Sex: Female : 1985 Arrival Date: 10/04/2021 Time: 18:29 Bed 7 Private MD: Diagnosis: Strain of muscle, fascia and tendon of right hip;Strain of muscle, fascia and tendon of lower back;Sprain of foot Presentation: 10/04 18:35 Chief complaint: Pain in right hip, low back, and left 3rd and 4th toes after hb mechanical fall from standing 3 days ago. Negative LOC. Coronavirus screen: At this time, the client does not indicate any symptoms associated with coronavirus-19. Ebola Screen: No symptoms or risks identified at this time. Initial Sepsis Screen: Does the patient meet any 2 criteria? No. Patient's initial sepsis screen is negative. Does the patient have a suspected source of infection? No. Patient's initial sepsis screen is negative. Risk Assessment: Do you want to hurt yourself or someone else? Patient reports no desire to harm self or others. Onset of symptoms was October 01, 2021. 18:35 Method Of Arrival: Ambulatory hb 18:35 Acuity: VIPIN 4 hb Historical: - Allergies: 18:37 PENICILLINS; hb - PSHx: 18:37 breast implants; section; hb - Immunization history:: Adult Immunizations up to date. - Social history:: Smoking status: Patient denies any tobacco usage or history of. Screenin:56 Abuse screen: Denies threats or abuse. Denies injuries from another. Abuse screen: jh6 Denies threats or abuse. Denies injuries from another. Nutritional screening: No deficits noted. Tuberculosis screening: No symptoms or risk factors identified. Fall Risk None identified. Assessment: 18:54 General: Appears in no apparent distress. Behavior is calm, cooperative. Pain: jh6 Complains of pain in right lower back and right gluteus tasha Pain radiates to right inguinal area and right iliac crest Pain currently is 7 out of 10 on a pain scale. Quality of pain is described as aching, sharp, Pain began 2-3 days ago. Is continuous, Alleviated by rest, Aggravated by exercise, increased activity, weight bearing. Neuro: No deficits noted. Level of Consciousness is awake, alert, obeys commands, Oriented to person, place, time, situation, Wholesaler are equal bilaterally Moves all extremities. Gait is steady, Speech is normal, Facial symmetry appears normal, Pupils are PERRLA. 19:35 General: Appears in no apparent distress. Behavior is calm, cooperative. Pain: kd3 Complains of pain in pelvis and right iliac crest and right inguinal area and buttocks and right gluteus tasha and right lower back. Neuro: Level of Consciousness is awake, alert, obeys commands, Oriented to person, place, time, situation. Respiratory: Airway is patent Trachea midline Respiratory effort is even, unlabored, Respiratory pattern is regular, symmetrical. Vital Signs: 18:35 BP 152 / 82; Pulse 91; Resp 16; Temp 97.4; Pulse Ox 100% on R/A; Weight 113.4 kg; hb Height 5 ft. 2 in. (157.48 cm); Pain 8/10; 20:00 BP 120 / 76; Pulse 84; Resp 16; Pulse Ox 99% ; vc1 18:35 Body Mass Index 45.73 (113.40 kg, 157.48 cm) ED Course: 18:29 Patient arrived in ED. mr 18:30 Daniel Diego PA is PHCP. [facility] 18:30 Ricardo Ramirez MD is Attending Physician. [facility] 18:37 Triage completed. hb 18:37 Arm band placed on. hb 18:47 Adriana Chaney, RN is Primary Nurse. [facility] 18:56 Bed in low position. Call light in reach. Side rails up X 1. 6 18:56 No provider procedures requiring assistance completed. jh6 19:38 Foot Left 3 View XRAY In Process Unspecified. EDMS 19:38 Pelvis XRAY In Process Unspecified. EDMS 19:38 Lumbar Spine (3 Views) XRAY In Process Unspecified. EDMS 19:56 Jose Landers MD is Referral Physician. [facility] 20:00 Patient did not have IV access during this emergency room visit. vc1 Administered Medications: 18:54 Drug: Ketorolac 30 mg Route: IM; Site: right deltoid; [facility] 20:04 Follow up: Response: No adverse reaction; Pain is decreased vc1 Medication: 18:56 VIS not applicable for this client. [facility] Outcome: 19:56 Discharge ordered by . [facility] 20:04 Discharged to home ambulatory. vc1 20:04 Condition: good 20:04 Discharge instructions given to patient, Instructed on discharge instructions, follow up and referral plans. medication usage, Demonstrated understanding of instructions, follow-up care, medications, Prescriptions given X 2. 20:04 Patient left the ED. vc1 Signatures: Dispatcher [employer] EDMS Daniel Diego PA PA jmm Rivera, Mary mr Kisha Rich, RN SO Carol Lundy RN RN kd3 Adriana Chaney RN RN jh6 Shavonne Murillo RN RN vc1
--- NOTE | 2021-10-04 19:57 | EDPHYS ---
Physician Documentation [facility] Name: Sarah Smith Age: 35 yrs Sex: Female : 1985 Arrival Date: 10/04/2021 Time: 18:29 Bed 7 Private MD: ED Physician Ricardo Ramirez HPI: 10/04 18:40 This 35 yrs old Female presents to ER via Ambulatory with complaints of Back jmm Pain, Toe Injury. 18:40 The patient presents with pain that is acute. Onset: The symptoms/episode jmm began/occurred acutely, 3 day(s) ago. This is a 35 year old female with no chronic medical conditions that presents to the ED with complaints of lower back pain with radiation to the right thigh. Patient fell backwards 3 days ago with mainly pain to the left 4th and 5th toes. Pain worsened to the lower back this morning. Denies numbness or weakness. . Historical: - Allergies: 18:37 PENICILLINS; hb - PSHx: 18:37 breast implants; section; hb - Immunization history:: Adult Immunizations up to date. - Social history:: Smoking status: Patient denies any tobacco usage or history of. ROS: 18:40 Constitutional: Negative for fever, chills, and weight loss, Cardiovascular: Negative jmm for chest pain, palpitations, and edema, Respiratory: Negative for shortness of breath, cough, wheezing, and pleuritic chest pain. 18:40 Back: Positive for pain with movement. 18:40 MS/extremity: Positive for pain. 18:40 All other systems are negative. Exam: 18:40 Constitutional: This is a well developed, well nourished patient who is awake, alert, jmm and in no acute distress. Head/Face: atraumatic. Eyes: EOMI, no conjunctival erythema appreciated ENT: Moist Mucus Membranes Neck: Trachea midline, Supple Chest/axilla: Normal chest wall appearance and motion. Cardiovascular: Regular rate and rhythm. No edema appreciated Respiratory: Normal respirations, no respiratory distress appreciated Abdomen/GI: Non distended 18:40 Back: lower lumbar ttp, from appreciated, mild right lower back pain on palpation. 18:40 Musculoskeletal/extremity: ecchymosis noted to the left upper arm, FROM appreciated to the shoulder, elbow and wrist. compartments are soft, NVI. Pain on palpation of the left foot 4th and 5th toes. . 18:40 Skin: Appearance: Color: normal in color. 18:40 Neuro: Orientation: is normal, Mentation: is normal, Memory: is normal. 18:40 Psych: Behavior/mood is pleasant, cooperative. Vital Signs: 18:35 BP 152 / 82; Pulse 91; Resp 16; Temp 97.4; Pulse Ox 100% on R/A; Weight 113.4 kg; hb Height 5 ft. 2 in. (157.48 cm); Pain 8/10; 20:00 BP 120 / 76; Pulse 84; Resp 16; Pulse Ox 99% ; vc1 18:35 Body Mass Index 45.73 (113.40 kg, 157.48 cm) hb MDM: 18:40 Patient medically screened. [facility] 19:54 Data reviewed: vital signs, nurses notes. Counseling: I had a detailed discussion with cheli the patient and/or guardian regarding: the historical points, exam findings, and any diagnostic results supporting the discharge/admit diagnosis, radiology results, the need for outpatient follow up, to return to the emergency department if symptoms worsen or persist or if there are any questions or concerns that arise at home. ED course: Xrays negative. Patient advised to follow up with pcp and otherwise given strict return precautions. Patient understood and agrees with the plan of care. . 10/04 18:45 Order name: Pelvis XRAY; Complete Time: 19:54 [facility] 10/04 18:45 Order name: Lumbar Spine (3 Views) XRAY; Complete Time: 19:50 [facility] 10/04 18:45 Order name: Foot Left 3 View XRAY; Complete Time: 19:54 [facility] Administered Medications: 18:54 Drug: Ketorolac 30 mg Route: IM; Site: right deltoid; jh6 20:04 Follow up: Response: No adverse reaction; Pain is decreased vc1 Disposition Summary: 10/04/21 19:56 Discharge Ordered Location: Home [facility] Condition: Stable [facility] Diagnosis - Strain of muscle, fascia and tendon of right hip jmm - Strain of muscle, fascia and tendon of lower back jmm - Sprain of foot jmm Followup: [facility] - With: Jose Landers MD - When: 2 - 3 days - Reason: Recheck today's complaints, Continuance of care, Re-evaluation by your physician Discharge Instructions: - Discharge Summary Sheet jmm - Foot Sprain jmm - Low Back Sprain or Strain Rehab-SportsMed jmm - Adductor Muscle Strain jm Forms: - Medication Reconciliation Form jmm - Thank You Letter jmm - Antibiotic Education jmm - Prescription Opioid Use [facility] Prescriptions: - Zanaflex 4 mg Oral Tablet - take 1 tablet by ORAL route every 8 hours As needed; 20 tablet; Refills: 0, jmm Product Selection Permitted - Diclofenac Sodium 75 mg Oral Tablet Sustained Release - take 1 tablet by ORAL route 2 times per day; 30 tablet; Refills: 0, Product [facility] Selection Permitted Signatures: Dispatcher [employer] Daniel Sarmiento PA PA jmm Baxter, Heather, RN RN Adriana Chaney RN RN jh6 Shavonne Murillo RN vc1
[2021-10-04 21:01] VITALS: TEMP 97.4
[2021-10-04 21:04] VITALS: BP 120/76; O2SAT 99
== END 2021-10-04 20:04 | disposition home or self-care (01) ==
LOC: ER 18:27
DX: S39.012A Strain of muscle, fascia and tendon of lower back, initial encounter (principal); S76.011A Strain of muscle, fascia and tendon of right hip, initial encounter; S93.601A Unspecified sprain of right foot, initial encounter; Z98.82 Breast implant status; Z88.0 Allergy status to penicillin
CPT/HCPCS: 72100; 72170; 96372; 99283

== ENCOUNTER 2022-09-03 11:07 | Day surgery (SDC) | payer OTHER ==
[2022-09-03] MEDS ORDERED: Ringers Lactate 1,000 ML IV ONE (11:36)
[2022-09-03 12:26] LABS: Urine Specific Gravity/Preg >1.030 (1.005-1.030)
[2022-09-03] MEDS ORDERED: propofoL 200 MG/20 ML VIAL IV ONE ×2 (12:36→13:07)
[2022-09-03] MEDS ORDERED: MIDAZOLAM HCL 2 MG/2 ML INJ ONE (12:37)
[2022-09-03] MEDS ORDERED: FENTANYL CITR 100 MCG/2 ML ONE (12:37)
[2022-09-03] MEDS ORDERED: EPINEPHRINE/PF 1 MG/ML AMP ONE (12:38)
[2022-09-03] MEDS ORDERED: ONDANSETRON 4 MG/2 ML VIAL ONE (12:39)
[2022-09-03] MEDS ORDERED: LIDOCAINE 1% MPF 5 ML VIAL ONE (12:39)
[2022-09-03] MEDS ORDERED: ROCURONIUM 50 MG/5 ML VIAL IV ONE (12:41)
[2022-09-03] MEDS: BUPIVACAINE 0.5% PF 10 ML VIAL ONE ×2 (12:57→13:28)
[2022-09-03] MEDS ORDERED: GLYCOPYRROLATE 0.2 MG/ML SYR ONE (13:02)
[2022-09-03] MEDS ORDERED: NEOSTIGMINE 1 MG/ML -10 ML VIAL ONE (13:06)
[2022-09-03] MEDS ORDERED: SUCCINYLCHOLINE 20 MG/ML (10 ML) IV ONE (13:30)
[2022-09-03] MEDS: HYDROMORPHONE HCL 1 MG/ML INJ ONE ×2 (14:20→14:25)
[2022-09-03] MEDS ORDERED: HYDROCODONE/APAP 7.5/325 MG TAB ONE (14:51)
[2022-09-03 15:29] VITALS: O2SAT 93
[2022-09-03 15:32] VITALS: BP 129/80; TEMP 97
--- NOTE | 2022-09-04 18:29 | OP ---
Date of Procedure: 09/03/2022 Surgeon: CORNELIA SCHMIDT Primary Care Physician: Meka Colin M.D. Preoperative Diagnosis: Chronic tonsillitis. Postoperative Diagnosis: Chronic tonsillitis. Procedure: Tonsillectomy. Anesthesia: General endotracheal anesthesia was administered. I also infiltrated approximately 10 m L of 0.25% Marcaine with 1:100,000 epinephrine into bilateral tonsillar fossae and soft palate. Estimated Blood Loss: Less than 20 mL. Specimens: Bilateral tonsils submitted to Pathology for evaluation. Findings: Bilateral hypertrophic tonsils 3/4; adenoidal tissues 0/4. Complications: None. Disposition: Stable. The patient tolerated the procedure well. Indications For Procedure: Patient is a pleasant 36-year-old female who presented to my outpatient c lin with multiple tonsillar infections that had been refractory to outpatient oral antibiotics. Th ananya were indications to bring the patient to the operative suite for the above-mentioned procedure. She understood, all questions were answered. Risks versus benefits and complications were explained in detail and a consent form was signed, which was placed in the chart. Description Of Procedure: Patient was transferred from the preoperative holding area to the operativ e suite by Department of Anesthesia, placed on the operating room table supine, sedated, and intubate d in normal fashion. Table was rotated to 90 degrees and a shoulder roll was placed. Head and eyes were covered with sterile blue towels and moist Ray-Camilla was placed over the upper lip for protection. The McIvor retractor was introduced to the right oral commissure and directed along the endotrachea l tube and suspended from the Galeas stand with the Galeas stand public records officer. Tonsils were hypertrophic and infected/inflamed. Thus, I used monopolar electrocautery on a setting of 20 for coagulation to dissect tonsils and then hemostasis was achieved with suction Bovie and FloS eal. The adenoid pad was visualized and there was no evidence of adenoid tissue. I infiltrated appr oximately 10 mL of 0.25% Marcaine with 1:100,000 epinephrine into bilateral tonsillar fossae and soft palate. A flexible orogastric tube was inserted into the esophagus and stomach and all fluid conten ts were removed. Once the McIvor retractor was removed, patient's jaw was checked and found to be in proper alignment. She was transferred back to Department of Anesthesia in stable condition where she was subsequently awakened, extubated, and transferred to postoperative care unit. She will be discharged home on clif lgesic medication and will follow up in 1 to 2 weeks or sooner if needed. JAIR/HECTORL Voice ID: [id number] Report ID: [id number]
== END 2022-09-03 15:20 | disposition home or self-care (01) ==
LOC: OR 11:07
PROVIDERS: ATTEND Otolaryngology Facial Plastic Surgery
PROC: 0CTPXZZ Resection of Tonsils, External Approach (ICD-10-PCS; principal; 2022-09-03 13:00)
DX: J35.1 Hypertrophy of tonsils (principal); G47.33 Obstructive sleep apnea (adult) (pediatric); J35.8 Other chronic diseases of tonsils and adenoids
CPT/HCPCS: 81025; 88304; 42826; J2704 ×2; J2710; J0171; J2001; J2250; J3010; J1170; J2405; J7120

== ENCOUNTER 2022-09-09 20:05 | Emergency (ER) | payer OTHER ==
--- OUTSIDE RECORDS SUMMARY | 2022-09-09 20:09 | XMS REPORT | Continuity of Care Document ---
:1985 Author Organization [facility] t Address [address] [place] [address] Care Team Providers Name Role Phone Asked, No Pcp Primary Care Physician Unavailable Yohana Sharma Attending Clinician Unavailable Gigi Brown MD Attending Clinician TAVO KING Attending Clinician Unavailable BART ALEMAN Attending Clinician Unavailable Nurse, [facility] Attending Clinician Unavailable Doctor Unassigned, [place] Attending Clinician Unavailable Zoraida Roque MD Attending Clinician ZORAIDA ROQUE Attending Clinician Unavailable DESTINY LOWE III Attending Clinician Unavailable Yohana Sharma Admitting Clinician Unavailable RAZIA WHEATLEY Admitting Clinician Unavailable DESTINY LOWE III Admitting Clinician Unavailable Payers Payer Name Policy Type Policy Number Effective Date Expiration Date Dennis olegariopuja [facility] [id number] 2019 MEDICAID 00:00:00 [place] [id number] 2019 [facility] 00:00:00 [facility] [id number]/[id number] 020-PresentHMO [place] [id number] 2019 2019 00:00:00 00:00:00 Problems This patient has no known problems. Allergies, Adverse Reactions, Alerts Allergy Allergy Status Severity Reaction(s) Onset Inactive Treating Comm ents Source Name Type Date Date Clinician No Known DA Active U [facility] Allergie 10-09 [facility]: [facility] 00 are Mratinez Tellez Penicill DA Active SV RASH, [facility] ins ITCHING, 10-09 [place] NUMBNESS 00:00: [facility] 00 are [place] Penicill Propensi Active Swelling Meth rishi ins ty to 06-03 st adverse 00:00: Hospita reaction 00 l s to drug Penicill Propensi Active Swelling Meth rishi ins ty to 06-03 st adverse 00:00: Hospita reaction 00 l s to drug Penicill DA Active U 2019-02 [facility] ins 02-23 [place] 00:00: [facility] [address] Penicill DA Active U UNKNOWN 2019-02 [facility] ins 02-23 [place] 00:00: Health [address] PENICILL DRUG Active Hives 2018-02 [facility] IN INGREDI ity of 00:00: [address] Social History Social Habit Start Date Stop Date Quantity Comments Source [facility] History SDOH [facility] Std Drinks Hospit al History SDOH [facility] B[facility] Alcohol intake 2020-06-03 2020-06-03 Lifetime [facility] 00:00:00 00:00:00 non-drinker Hospital (finding) History of Social 2020-06-03 2020-06-[address] function 00:00:00 00:00:00 Hospital Tobacco use and 2020-06-03 2020-06-03 Never used [facility] exposure 00:00:00 00:00:00 Hospital History SDOH 2020-06-03 2020-06-03 1 [facility] Frequency 00:00:00 00:00:00 Hospita l Sex Assigned At [birth year] [facility] 00:00:00 [facility]:00 [facility] Smoking Status Start Date Stop Date Source Never smoker [facility] Medications Ordered Filled Start Stop Current Ordering Indication Dosage Frequency Signature Comments Components Source Medication Medication Date Date Medication? Clinician (SIG) Name Name phentermine Yes 37.5mg QD Take 37.5 [facility] 37.5 MG 4-[address] capsule 23:22: mouth Hospita 35 every l morning. phentermine Yes 37.5mg QD Take 37.5 [facility] 37.5 MG 4-[address] capsule 18:22: mouth [facility] 35 every l morning. albuterol No 2{puff} Q4H Inhale 2 [facility] (PROAIR 06-03 05-[address] HFA) 90 00:00: 04:59 every 4 Hospit a mcg/actuati 00 :00 (four) l on inhaler hours as needed for wheezing for up to 30 days. benzonatate No 100mg [id number] Take 1 [facility] (TESSALON) 06-[id number] 100 MG 00:00: 04:59 3D (100 mg Hospita capsule 00 :00 total) by l mouth 3 (three) times a day as needed for cough for up to 5 days. Vital Signs Vital Name Observation Time Observation Value Comments Source Body height 2020-06-03 23:20:00 162.6 cm [facility] Body weight 2020-06-03 23:20:00 104.327 kg [facility] BMI 2020-06-03 23:20:00 39.48 kg/m2 [facility] Systolic blood 2020-06-03 23:19:54 125 mm[Hg] [facility] pressure Diastolic blood 2020-06-03 23:19:54 74 mm[Hg] [facility] pressure Heart rate 2020-06-03 23:19:54 94 /min [facility] Body temperature 2020-06-03 23:19:[address] [facility] Respiratory rate 2020-06-03 23:19:54 20 /min [facility] Oxygen saturation in 2020-06-03 23:19:54 98 /min [facility] Arterial blood by Pulse oximetry Procedures Procedure Date / Time Performing Clinician Source Performed ECG 12-LEAD 2020-06-04 00:28:54 Gigi Brown spital GROUP A STREP, RAPID 2020-06-04 00:15:00 [facility] 2020-06-04 [facility] DIFF BASIC METABOLIC PANEL 2020-06-04 00:15:00 Kevin [facility] TROPONIN, I-STAT 2020-06-04 00:15:00 [facility] HCG QUALITATIVE, URINE 2020-06-04 00:15:00 Kevin [facility] SCREEN URINALYSIS 2020-06-04 00:15:00 [facility]FR 2020-06-04 00:15:00 Kevin [facility] spital XR CHEST 2 VW 2020-06-03 23:54:55 Kevin [facility] spital ECG ED PRELIMINARY 2020-06-03 23:30:13 [facility] INTERPRETATION Plan of Care Planned Activity Planned Date Details Comments Source Future Scheduled 2022-08-06 COVID-19 VACCINE [facility] Test 12:02:47 (#1) [code = COVID-19 VACCINE (#1)] Future Scheduled 2022-08-06 [facility] Test 12:02:47 screening (procedure) [code = 940979126] Future Scheduled 2022-08-06 [facility] for [facility] Test 12:02:47 malignant neoplasm of cervix (procedure) [code = 352899092] Future Scheduled 2022-08-06 INFLUENZA [facility]ACCINE [facility] Test 12:02:47 [code = INFLUENZA VACCINE] Future Scheduled COVID-19 VACCINE [facility] Test (1) [code = COVID-19 VACCINE (1)] Future Scheduled [facility] Test screening (procedure) [code = 737708007] Future Scheduled [facility] for [facility] Test malignant neoplasm of cervix (procedure) [code = 523910345] Future Scheduled INFLUENZA [facility]ACCINE [facility] Test [code = INFLUENZA VACCINE] Encounters Start End Encounter Admission Attending Care Care Encounter Source Date/Time Date/Time Type Type Clinicians Facility Department ID 2021-10-14 Inpatient Yohana Hagen [facility] [id number] [facility] 09:00:[address] [place] [address] 2020-12-19 Outpatient P [facility] [id number] [facility] 14:52:42 ity [facility] 2020-12-19 Outpatient [facility] [id number] [facility] 14:25:49 ity [facility] 2019-12-25 Inpatient HCANW ARIELLE [id number] [facility] 12:39:00 90 [facility] are [facility] 2020-06-03 2020-06-03 Emergency Ho, Gigi [id number] [facility] 18:19:00 20:05:[id number] 3.430.2.7 Hospit [id number] .[id number] l .8 2019-08-24 2019-08-24 [facility] [id number] Univers 09:30:00 09:30:00 WONDIFUL ity o f [facility] 2019-08-11 2019-08-11 [facility]patient [facility] [id number] Univers 08:30:00 08:30:00 BART ity [facility] 2019-08-02 2019-08-02 Nurse Nurse, [facility] [id number] 13:36:00 14:05:42 Visit Women[facility] Tereza 350.1.13.[address] [facility] 4.2.7.2.686 Professspencer [id number] [address] 2019-08-02 2019-08-02 Outpatient R [facility] [id number] Univers 14:00:00 14:00:00 ity [facility] 2019-08-02 2019-08-02 Orders Doctor CARLOTA [id number] 00:00:00 00:00:00 Only Unassigned, STU 350.1.13.10 [place] [facility] 4.2.7.2.686 [id number] 2019-07-06 2019-07-06 Office Zoraida Roque [facility] [id number] 13:05:07 14:04:09 Visit Greg Starks 350.1.13.10 [place] 4.2.7.2.686 Professio [id number] [address] 2019-07-06 2019-07-06 Outpatient ZORAIDA PASCUAL [facility] [id number] Univers 13:00:00 13:00:00 [facility] 2019-06-15 2019-06-15 Outpatient R LOVE [facility] [id number] Univers 09:30:00 09:30:00 [facility] 2019-05-25 2019-05-25 Outpatient R LOVE [facility] [id number] Univers 10:30:00 10:30:00 [facility] 2019-05-17 2019-05-17 Outpatient ZORAIDA PASCUAL [facility] [id number] Univers 09:00:00 09:00:00 [facility] 2019-05-11 2019-05-11 Outpatient R LOVE [facility] [id number] Univers 15:15:00 15:15:00 [facility] 2019-05-05 2019-05-05 Outpatient R LOVE [facility] [id number] [facility] 08:15:00 08:15:00 [facility] 2019-02-02 2019-02-02 Emergency X MYNOR III, [facility] ERT [id number] Univers 16:33:54 21:30:00 DESTINY [facility] Results Test Description Test Time Test Comments Results Result Comments Source ECG 12 lead 2020-06-05 02:38:51 Test Item Value Reference Range Interpretation Comme nts Ventricular rate (test code = 253) Atrial rate (test code = 255) AL interval (test code = 266) QRSD interval [...] , age undetermined-Abnormal ECG-No [facility]s available- [facility] [id number] 00:26:22EXAMINATION: XR CHEST 2 VW CLINICAL HISTORY: [...] Age related changes in the osseous structures... [facility] ED Preliminary Interpretation - Not an [id number] 23:30:13Gigi Brown MD 06/03/2020 7:48 [facility] ED Preliminary Interpretation - Not an OrderPerformed by: Gigi Brown MDAuthorized by: Gigi Brown MD ECG reviewed by ED Physician in the absence of a roll edge machine operator: yes Interpretation: Interpretation: non-specific Rate: ECG rate: 87 ECG rate assessment:normal Rhythm: Rhythm: sinus rhythm ST segments: ST segments: NormalT waves: T waves: non-specific and flatteningURINALYSIS [id number] 14:09:00 Test Item Value Reference Range Interpretation [...] MUCU) 1+ /LPF NONE SEEN UR HCG [id number] 14:08:00 Test Item Value Reference Range Interpretation Comments UR HCG QUAL (test code = HCGQLU) NEGATIVE NEGATIVE Notes Date/Time Note Provider Source 2019-12-25 13:06:00-00:00 [facility] EMERGENCY PROVIDER REPORT REPORT#:[id number] REPORT STATUS: Signed DATE:12/25/19 TIME: 1306 PATIENT: KARMA MAK UNIT #: [id number] ROOM: BED: AGE: 34 SEX: F PCP PHYS: No Primary or Family Ph ysician SERVICE AUTHOR: Devorah Mejia MD * ALL edits or amendments must be made on the Fin Quiver/computer document * HPI-General Illness Free Text HPI Notes Free Text HPI Notes This is a 34-year-old female with no pas t medical history presenting to the ER for 1 week history of sore throat. Patient repor ts no other URI symptoms. No fever or cough. No SOB. She does also report a f ew days of burning in her vaginal area. States burning and throbbing sensa tion when she wipes after urinating. She denies abdomi nal pain, n/v however. No vaginal bleeding. She does not recall the last time she had LMP. General Initial Greet Date/Time 12/25/19 1243 Presentation Chief Complaint Shortness of breath Review of Systems ROS Statements All systems rev neg except as marked. Review of Systems Constitutional Denies: Chills, Fatigue, Fever. Ears/Nose/Throat Reports: Sore throat. Denies: Sinus problem. Respiratory Denies: Cough, non-productive, Shortness of ulices th, Wheezing. Cardiovascular Denies: Chest pain. GI Denies: Abdominal pain, Nausea, Vomiting. Female Reports: Dysuria. Denies: Fl ank pain, Hematuria, Incontinence, Vaginal bleeding - abnl, Vaginal discharge. Skin Denies: Rash, Swelling. Past Medical History - Adult Stated Complaint SORE THROAT LOWER BACK PAIN VAG PAIN AND BURNING Allergies Coded Allergies: Penicillins (UNKNOWN 12/25/19) Calculated suicide risk level: No risk Smoking status for patients 13 years old or olde r: Unknown,if ever smoked Physical Exam Vital Signs Vital Signs First Documented: Result Date Time Pulse Ox 99 12/24 1245 B/P 115/79 12/24 1245 B/P Mean 91 12/24 1245 Temp 98.0 12/24 1245 Pulse 92 12/24 1245 Resp 15 12/24 1245 Last Documented: Result Date Time Pulse Ox 100 12/24 1509 B/P 118/69 12/24 1509 B/P Mean 85 12/24 1509 Pulse 85 12/24 1509 Resp 18 12/24 1509 Temp 98.0 12/24 1245 Review of Vital Signs Reviewed Free Text PE Notes Free Text PE Notes Physical Exam: General: awake, alert, well appearing, morbidly obese Head: NC/AT ENT: OP clear, MMM Neck: supple, atraumatic Pulm: CTAB, no resp distress, no wheezing, rales , rhonci CV: RRR, no m/r/g GI: abd s/nt/nd Extremities: No CVA tenderness, normal inspectio n, Full ROM, no swelling, no tenderness Skin: color normal, no rash, warm, no swelling : deferred Neuro: normal motor, sensory and speech, ambulat ory Psychiatric: normal mood, affect normal Interpretation Diagnostics Lab Results Interpretation Results Laboratory Tests: 12/24 12/24 1330 1330 Urines Urine Color (YELLOW) YELLOW Urine Appearance (CLEAR) HAZY Urine pH (5.0 - 9.0) 5.0 Ur Specific [place] (1.001 - 1.030) 1.020 Urine Protein (NEGATIVE) NEGATIVE Urine Glucose (UA) (NEGATIVE) NEGATIVE Urine Ketones (NEGATIVE) NEGATIVE Urine Blood (NEGATIVE) 1+ Urine Nitrite (NEGATIVE) NEGATIVE Urine Bilirubin (NEGATIVE) NEGATIVE Urine Urobilinogen (<=1.0) NEGATIVE Ur Leukocyte Esterase (NEGATIVE) NEGATIVE Urine RBC (0 - 5 /HPF) 0-5 Urine WBC (0 - 5 /HPF) 0-5 Ur Epithelial Cells (NONE - FEW /LPF) MOD Urine Bacteria (NONE SEEN /HPF) 1+ H Urine Mucus (NONE SEEN /LPF) 1+ Urine Ascorbic Acid NEGATIVE Urine HCG, Qual (NEGATIVE) NEGATIVE Microbiology: Date/Time Procedure - Status Source Growth 12/24 1324 Group A Streptococcus Screen (ERIC) - COMP THROAT 12/24 1324 Throat Culture - COMP THROAT Re-Evaluation MDM Free Text MDM Notes Free Text MDM Notes This is a 34-year-old female with no pas t medical history presenting to the ER for 1 week history of sore throat. Will get stre p swab, UA, UPT and decadron for pain control. Reassess. Re-Evaluation/Progress #1 Text/Dict Note Discharge Reassessment: Patient HDS, VSS. Symptoms i mproved. Discussed results with patient. Pt is well appearing, non toxic. Will f/u with PCP or speci alist as discussed. Return precautions given. Time of Re-Eval 142 Re-Eval Status Improved ED Course Medication(s) Ordered Medication(s) Ordered: Eye, Ear, Nose And Throat (Een Sig/Shantel Start time Last Medication Dose Route Stop Time Status Admin Dexamethasone Sodium 8 MG X1ED STA 12/24 1306 D C 12/24 Phosphate IM 12/24 1307 1317 Patient Discharge Departure Vital Signs/Condition Vital Signs First Documented: Result Date Time Pulse Ox 99 12/24 1245 B/P 115/79 12/24 1245 B/P Mean 91 12/24 1245 Temp 98.0 12/24 1245 Pulse 92 12/24 1245 Resp 15 12/24 1245 Last Documented: Result Date Time Pulse Ox 100 12/24 1509 B/P 118/69 12/24 1509 B/P Mean 85 12/24 1509 Pulse 85 12/24 1509 Resp 18 12/24 1509 Temp 98.0 12/24 1245 All vital signs available at the time of this en try have been reviewed. Clinical Impression Clinical Impression Primary Impression: Viral pharyngitis Secondary Impressions: Dysuria Ruled Out Impressions: , Strep pharyngi tis Disposition Decision Discharge )( Discharged to Home Yes )( Time 1422 )( Date 12/25/19 Discharge/Care Plan Counseled Regarding Diagnosis, Lab resul ts, Need for follow-up, When to return to ED (Auto) Prescriptions Current Visit Scripts Nitrofurantoin/Nitrofuran Mac (Macrobid) 100 MG PO BID Nitrofurantoin/Nitrofuran Mac (Macrobid) 100 MG PO BID #14 CAPS Until finished. Take with food. Dexamethasone (Decadron) 4 MG PO BID Dexamethasone (Decadron) 4 MG PO BID #10 TABS Patient Instructions ED Pharyngitis Viral Referrals Tamy Barrios MD: 2-3 Days Electronically Signed by Devorah Mejia MD 12/26/19 at 2020 RPT #:[id number] END OF REPORT
[2022-09-09 20:51] LABS: Absolute Lymphocytes (CBC) 3.1 K/uL (0.7-4.9); MCV 85.5 fL (80-100)
[2022-09-09 20:56] LABS: Hematocrit 44.2 % (36.0-45.0); Lymphocytes % 28.6 % (15.3-44.8); MPV 8.5 fL (7.6-11.3); RBC Red Blood Cell Count 5.17 M/uL (3.86-4.86)
[2022-09-09 20:59] LABS: Albumin 3.6 g/dL (3.4-5.0); Bilirubin Total 0.4 mg/dL (0.2-1.0); Potassium 3.9 mEq/L (3.5-5.1); Protein, Total 8.3 g/dL (6.4-8.2)
[2022-09-09] MEDS ORDERED: NA CHLORIDE 0.9% 50 ML ONE (21:43)
[2022-09-09] MEDS ORDERED: CEFTRIAXONE 2000 MG/VIAL ONE (21:43)
[2022-09-09] MEDS ORDERED: NA CHLORIDE 0.9% 1,000 ML ONE (21:43)
[2022-09-09] MEDS ORDERED: dexAMETHasone 10 MG/ML VIAL ONE ×2 (21:43→21:59)
--- NOTE | 2022-09-09 22:04 | ER ---
Nurse's Notes [facility] Name: Sarah Smith Age: 36 yrs Sex: Female : 1985 Arrival Date: 09/09/2022 Time: 20:05 Bed 8 Private MD: Diagnosis: Acute pharyngitis, unspecified;Other acute postprocedural pain-tonsillectomy Presentation: 09/09 20:28 Chief complaint: Patient states: increased pain s/p tonsillectomy on 09/03. Coronavirus cm10 screen: Client denies travel out of the [place] in the last 14 days. Ebola Screen: No symptoms or risks identified at this time. Initial Sepsis Screen: Does the patient meet any 2 criteria? No. Patient's initial sepsis screen is negative. Initial Sepsis Screen: Does the patient have a suspected source of infection? No. Patient's initial sepsis screen is negative. Risk Assessment: Do you want to hurt yourself or someone else? Patient reports no desire to harm self or others. Onset of symptoms was September 09, 2022. 20:28 Method Of Arrival: Ambulatory cm10 20:28 Acuity: VIPIN 3 cm10 Triage Assessment: 20:30 General: Appears in no apparent distress. uncomfortable, Behavior is calm, cooperative. cm10 Pain: Complains of pain in Throat Pain currently is 10 out of 10 on a pain scale. Quality of pain is described as burning. EENT: Reports pain in Throat. Neuro: No deficits noted. Level of Consciousness is awake, alert, Oriented to person, place. Respiratory: No deficits noted. Airway is patent Respiratory effort is even, unlabored, Respiratory pattern is regular, symmetrical. Historical: - Allergies: 20:29 PENICILLINS; cm10 - PSHx: 20:29 breast implants; section; Tonsillectomy; cm10 - Immunization history:: Adult Immunizations unknown. - Social history:: Smoking status: Patient denies any tobacco usage or history of. Screenin:31 [facility] ED Fall Risk Assessment (Adult) History of falling in the last 3 months, cm10 including since admission No falls in past 3 months (0 pts) Confusion or Disorientation No (0 pts) Intoxicated or Sedated No (0 pts) Impaired Gait No (0 pts) Mobility Assist Device Used No (0 pt) Altered Elimination No (0 pt) Score/Fall Risk Level 0 - 2 = Low Risk Oriented to surroundings, Maintained a safe environment, Hourly rounding (assess needs \T\ fall precautionary measures) done. Abuse screen: Denies threats or abuse. Denies injuries from another. Nutritional screening: No deficits noted. Tuberculosis screening: No symptoms or risk factors identified. Assessment: 21:52 General: Appears in no apparent distress. uncomfortable, Behavior is calm, cooperative. lg3 Pain: Complains of pain in throat Pain currently is 9 out of 10 on a pain scale. Neuro: No deficits noted. Monet Agitation-Sedation Scale (RASS): 0 - Alert and Calm Level of Consciousness is awake, alert, obeys commands, Oriented to person, place, time, situation. Cardiovascular: No deficits noted. Denies chest pain, shortness of breath, Capillary refill < 3 seconds Clubbing of nail beds is absent JVD is absent Patient's skin is warm and dry. Respiratory: No deficits noted. Airway is patent Respiratory effort is even, unlabored, Respiratory pattern is regular, symmetrical. GI: No deficits noted. No signs and/or symptoms were reported involving the gastrointestinal system. Abdomen is round non-distended, obese. : No deficits noted. No signs and/or symptoms were reported regarding the genitourinary system. EENT: No deficits noted. No signs and/or symptoms were reported regarding the EENT system. Reports difficulty swallowing pain when swallowing. Derm: No deficits noted. No signs and/or symptoms reported regarding the dermatologic system. Skin is intact, is healthy with good turgor, Skin is dry, Skin is normal, Skin temperature is warm. Musculoskeletal: No deficits noted. No signs and/or symptoms reported regarding the musculoskeletal system. Circulation, motion, and sensation intact. Range of motion: intact in all extremities. 22:28 Reassessment: No changes from previously documented assessment. Patient and/or family vc1 updated on plan of care and expected duration. Pain level reassessed. Patient is alert, oriented x 3, equal unlabored respirations, skin warm/dry/pink. 22:47 Reassessment: Patient appears in no apparent distress at this time. No changes from lg3 previously documented assessment. Patient and/or family updated on plan of care and expected duration. Pain level reassessed. Patient is alert, oriented x 3, equal unlabored respirations, skin warm/dry/pink. Patient states feeling better. Patient states symptoms have improved. Vital Signs: 20:28 BP 129 / 92; Pulse 102; Resp 18; Temp 98.7; Pulse Ox 96% ; Weight 117.03 kg; Height 5 cm10 ft. 3 in. ; Pain 10/10; 21:52 BP 132 / 98; Pulse 92; Resp 19 S; Pulse Ox 100% on R/A; lg3 22:27 BP 149 / 85; Pulse 81; Resp 18; Pulse Ox 95% ; vc1 22:48 BP 145 / 79; Pulse 77; Resp 18 S; Pulse Ox 97% on R/A; lg3 20:28 Body Mass Index 45.70 (117.03 kg, 160.02 cm) cm10 20:28 Pain Scale: Adult cm10 ED Course: 20:06 Patient arrived in ED. am2 20:10 Ricardo Ramirez MD is Attending Physician. bárbara 20:29 Triage completed. cm10 20:31 Arm band placed on. cm10 20:31 Initial lab(s) drawn, by ED staff, sent to lab. Inserted saline lock: 20 gauge in right cm10 antecubital area, using aseptic technique. Blood collected. 20:32 Comprehensive Metabolic Panel Sent. cm10 20:32 CBC with Diff Sent. cm10 21:40 Shavonne Murillo, SO is Primary Nurse. vc1 21:52 Patient has correct armband on for positive identification. Placed in gown. Bed in low lg3 position. Call light in reach. Side rails up X 1. Client placed on continuous cardiac and pulse oximetry monitoring. NIBP monitoring applied. Door closed. Noise minimized. Warm blanket given. 22:01 Tosin Archer MD is Referral Physician. bárbara 22:48 No provider procedures requiring assistance completed. IV discontinued, intact, lg3 bleeding controlled, No redness/swelling at site. Pressure dressing applied. Administered Medications: 21:40 Drug: NS 0.9% IV 1000 ml Route: IV; Rate: 1 bolus; Site: right antecubital; vc1 22:06 Follow up: Response: No adverse reaction; IV Status: Completed infusion; IV Intake: lg3 1000ml 21:40 Drug: Decadron - Dexamethasone IVP 10 mg Route: IVP; Site: right antecubital; vc1 22:06 Follow up: Response: No adverse reaction lg3 21:40 Drug: Rocephin IV 2 grams Route: IV; Rate: per protocol; Site: right antecubital; vc1 22:05 Follow up: Response: No adverse reaction; IV Status: Completed infusion; IV Intake: [id number] 21:52 Drug: Decadron - Dexamethasone IVP 10 mg Route: IVP; Site: right antecubital; lg3 22:05 Follow up: Response: No adverse reaction lg3 22:02 Not Given (Med not avaliablee): GI Cocktail without - (Maalox PO Suspension 30 lg3 ml, Lidocaine Mucous Membrane Liquid 2 % 15 ml) PO once 22:05 Drug: fentaNYL (PF) IVP 25 mcg Route: IVP; Site: right antecubital; lg3 22:46 Follow up: Response: No adverse reaction; Marked relief of symptoms; Pain is decreased; lg3 RASS: Alert and Calm (0) 22:05 Drug: Ondansetron IVP 4 mg Route: IVP; Site: right antecubital; lg3 22:45 Follow up: Response: No adverse reaction; Marked relief of symptoms lg3 22:44 Drug: fentaNYL (PF) IVP 25 mcg Route: IVP; Site: right antecubital; lg3 22:47 Follow up: Response: No adverse reaction; Marked relief of symptoms; Pain is decreased; lg3 RASS: Alert and Calm (0) Medication: 22:28 VIS not applicable for this client. vc1 Intake: 22:05 IV: 50ml; Total: 50ml. lg3 22:06 IV: 1000ml; Total: 1050ml. lg3 Outcome: 22:04 Discharge ordered by MD. granger 22:48 Discharged to home ambulatory, with friend. lg3 22:48 Condition: stable 22:48 Discharge instructions given to patient, Instructed on discharge instructions, follow up and referral plans. medication usage, Demonstrated understanding of instructions, follow-up care, medications, Prescriptions given X 1. 22:49 Patient left the ED. lg3 Signatures: Ricardo Ramirez MD MD cha Moreno, Amanda am2 Zaida Mcbride, SO RN lg3 Shavonne Murillo RN RN vc1 Gloria Smith RN RN cm10 Corrections: (The following items were deleted from the chart) 20:30 20:29 Allergies: No Known Allergies; cm10 cm10 21:54 21:52 EENT: No deficits noted. No signs and/or symptoms were reported regarding the [facility] EENT system. 3
--- NOTE | 2022-09-09 22:05 | EDPHYS ---
Physician Documentation [facility] Name: Sarah Smith Age: 36 yrs Sex: Female : 1985 Arrival Date: 09/09/2022 Time: 20:05 Bed 8 Private MD: EMILY Physician Ricardo Ramirez HPI: 09/09 21:51 This 36 yrs old Female presents to ER via Ambulatory with complaints of Post bárbara Surgical Pain - tonsillectomy 09/03. 21:51 The patient presents with sore throat, sp tonsillectomy. The patient describes throat bárbara pain as burning, constant, raw. Onset: The symptoms/episode began/occurred 2 day(s) ago. Severity of symptoms: At their worst the symptoms were moderate, in the emergency department the symptoms are unchanged. Modifying factors: The symptoms are alleviated by nothing, the symptoms are aggravated by fluids, Patient's oral intake status: good. Associated signs and symptoms: The patient has no apparent associated signs or symptoms. The patient has not experienced similar symptoms in the past. Historical: - Allergies: 20:29 PENICILLINS; cm10 - PSHx: 20:29 breast implants; section; Tonsillectomy; cm10 - Immunization history:: Adult Immunizations unknown. - Social history:: Smoking status: Patient denies any tobacco usage or history of. ROS: 21:55 Constitutional: Negative for fever, chills, and weight loss, Eyes: Negative for injury, bárbara pain, redness, and discharge, Neck: Negative for injury, pain, and swelling, Cardiovascular: Negative for chest pain, palpitations, and edema, Respiratory: Negative for shortness of breath, cough, wheezing, and pleuritic chest pain, Abdomen/GI: Negative for abdominal pain, nausea, vomiting, diarrhea, and constipation, Back: Negative for injury and pain, : Negative for injury, bleeding, discharge, and swelling, MS/Extremity: Negative for injury and deformity, Skin: Negative for injury, rash, and discoloration, Neuro: Negative for headache, weakness, numbness, tingling, and seizure, Psych: Negative for depression, anxiety, suicide ideation, homicidal ideation, and hallucinations, Allergy/Immunology: Negative for hives, rash, and allergies, Endocrine: Negative for neck swelling, polydipsia, polyuria, polyphagia, and marked weight changes, Hematologic/Lymphatic: Negative for swollen nodes, abnormal bleeding, and unusual bruising. 21:55 ENT: Positive for difficulty swallowing, sore throat. Exam: 21:55 Constitutional: This is a well developed, well nourished patient who is awake, alert, bárbara and in no acute distress. Head/Face: Normocephalic, atraumatic. Eyes: Pupils equal round and reactive to light, extra-ocular motions intact. Lids and lashes normal. Conjunctiva and sclera are non-icteric and not injected. Cornea within normal limits. Periorbital areas with no swelling, redness, or edema. Neck: Trachea midline, no thyromegaly or masses palpated, and no cervical lymphadenopathy. Supple, full range of motion without nuchal rigidity, or vertebral point tenderness. No Meningismus. Chest/axilla: Normal chest wall appearance and motion. Nontender with no deformity. No lesions are appreciated. Cardiovascular: Regular rate and rhythm with a normal S1 and S2. No gallops, murmurs, or rubs. Normal PMI, no JVD. No pulse deficits. Respiratory: Lungs have equal breath sounds bilaterally, clear to auscultation and percussion. No rales, rhonchi or wheezes noted. No increased work of breathing, no retractions or nasal flaring. Abdomen/GI: Soft, non-tender, with normal bowel sounds. No distension or tympany. No guarding or rebound. No evidence of tenderness throughout. Back: No spinal tenderness. No costovertebral tenderness. Full range of motion. Skin: Warm, dry with normal turgor. Normal color with no rashes, no lesions, and no evidence of cellulitis. MS/ Extremity: Pulses equal, no cyanosis. Neurovascular intact. Full, normal range of motion. Neuro: Awake and alert, GCS 15, oriented to person, place, time, and situation. Cranial nerves II-XII grossly intact. Motor strength 5/5 in all extremities. Sensory grossly intact. Cerebellar exam normal. Normal gait. Psych: Awake, alert, with orientation to person, place and time. Behavior, mood, and affect are within normal limits. 21:55 ENT: Posterior pharynx: Airway: normal, no evidence of obstruction, Tonsils: bilaterally enlarged, with erythema, Uvula: midline, edematous, erythema, swelling, that is mild, erythema, that is mild, exudate, that is mild, peritonsillar mass, is not appreciated, pooling of secretions, is not appreciated. Vital Signs: 20:28 BP 129 / 92; Pulse 102; Resp 18; Temp 98.7; Pulse Ox 96% ; Weight 117.03 kg; Height 5 cm10 ft. 3 in. ; Pain 10/10; 21:52 BP 132 / 98; Pulse 92; Resp 19 S; Pulse Ox 100% on R/A; lg3 22:27 BP 149 / 85; Pulse 81; Resp 18; Pulse Ox 95% ; vc1 22:48 BP 145 / 79; Pulse 77; Resp 18 S; Pulse Ox 97% on R/A; lg3 20:28 Body Mass Index 45.70 (117.03 kg, 160.02 cm) cm10 20:28 Pain Scale: Adult cm10 MDM: 20:10 Patient medically screened. [facility] 21:57 Differential diagnosis: laryngitis, peritonsillar abscess pharyngitis, tonsillitis, bárbara uvulitis, sp tonsilectomy. Data reviewed: vital signs, nurses notes, lab test result(s), CBC, electrolytes, hepatic panel. Consideration of Admission/Observation Escalation of care including admission/observation considered. Care significantly affected by the following chronic conditions: none, sp tonsillectomy. Counseling: I had a detailed discussion with the patient and/or guardian regarding: the historical points, exam findings, and any diagnostic results supporting the discharge/admit diagnosis, lab results, the need for outpatient follow up, for definitive care, an ENT specialist. 09/09 20:12 Order name: CBC with Diff; Complete Time: 21: [facility] 09/09 20:12 Order name: Comprehensive Metabolic Panel; Complete Time: 21:21 [facility] 09/09 21:21 Order name: PO challenge; Complete Time: 21:52 [facility] Administered Medications: 21:40 Drug: NS 0.9% IV 1000 ml Route: IV; Rate: 1 bolus; Site: right antecubital; vc1 22:06 Follow up: Response: No adverse reaction; IV Status: Completed infusion; IV Intake: lg3 1000ml 21:40 Drug: Decadron - Dexamethasone IVP 10 mg Route: IVP; Site: right antecubital; vc1 22:06 Follow up: Response: No adverse reaction lg3 21:40 Drug: Rocephin IV 2 grams Route: IV; Rate: per protocol; Site: right antecubital; vc1 22:05 Follow up: Response: No adverse reaction; IV Status: Completed infusion; IV Intake: [id number] 21:52 Drug: Decadron - Dexamethasone IVP 10 mg Route: IVP; Site: right antecubital; lg3 22:05 Follow up: Response: No adverse reaction lg3 22:02 Not Given (Med not avaliablee): GI Cocktail without - (Maalox PO Suspension 30 lg3 ml, Lidocaine Mucous Membrane Liquid 2 % 15 ml) PO once 22:05 Drug: fentaNYL (PF) IVP 25 mcg Route: IVP; Site: right antecubital; lg3 22:46 Follow up: Response: No adverse reaction; Marked relief of symptoms; Pain is decreased; lg3 RASS: Alert and Calm (0) 22:05 Drug: Ondansetron IVP 4 mg Route: IVP; Site: right antecubital; lg3 22:45 Follow up: Response: No adverse reaction; Marked relief of symptoms lg3 22:44 Drug: fentaNYL (PF) IVP 25 mcg Route: IVP; Site: right antecubital; lg3 22:47 Follow up: Response: No adverse reaction; Marked relief of symptoms; Pain is decreased; lg3 RASS: Alert and Calm (0) Disposition Summary: 09/09/22 22:04 Discharge Ordered Location: Home bárbara Problem: new bárbara Symptoms: have improved bárbara Condition: Stable bárbara Diagnosis - Acute pharyngitis, unspecified bárbara - Other acute postprocedural pain - tonsillectomy bárbara Followup: bárbara - With: Private Physician - When: 2 - 3 days - Reason: Recheck today's complaints, Continuance of care, Re-evaluation by your physician Followup: bárbara - With: Tosin Archer MD - When: 2 - 3 days - Reason: Recheck today's complaints, Continuance of care, Re-evaluation by your physician Discharge Instructions: - Discharge Summary Sheet bárbara - Pharyngitis bárbara - Sore Throat bárbara - Pain Relief Before and After Surgery bárbara - Pharyngitis, [id number] bárbara Forms: - Medication Reconciliation Form bárbara - Thank You Letter bárbara - Antibiotic Education bárbara - Prescription Opioid Use bárbara - Patient Portal Instructions bárbara Prescriptions: - Cephalexin 500 mg Oral Capsule - take 1 capsule by ORAL route every 6 hours for 7 days; 28 capsule; Refills: 0, bárbara Product Selection Permitted Signatures: Dispatcher [employer] Ricardo Perez MD MD cha Gibson, Lacie RN RN lg3 Shavonne Murillo RN RN vc1 Gloria Smith RN RN cm10 Corrections: (The following items were deleted from the chart) 20:30 20:29 Allergies: No Known Allergies; cm10 cm10
[2022-09-09] MEDS ORDERED: ONDANSETRON 4 MG/2 ML VIAL ONE (22:11)
[2022-09-09] MEDS ORDERED: FENTANYL CITR 100 MCG/2 ML ONE (22:11)
[2022-09-09 23:16] VITALS: TEMP 98.7
[2022-09-09 23:19] VITALS: BP 145/79; O2SAT 97
== END 2022-09-09 22:49 | disposition home or self-care (01) ==
LOC: ER 20:05
DX: G89.18 Other acute postprocedural pain (principal); Z98.890 Other specified postprocedural states; Z88.0 Allergy status to penicillin; Z98.82 Breast implant status
CPT/HCPCS: 85025; 36415; 80053; J3010; J1100 ×2; J2405; J0696; J7030

== ENCOUNTER 2023-01-03 22:20 | Emergency (ER) | payer OTHER, SELFPAY ==
--- OUTSIDE RECORDS SUMMARY | 2023-01-03 22:50 | XMS REPORT | Continuity of Care Document ---
:1985 Author Organization [facility] t Address [address] [facility] [address] [place] [address] Care Team Providers Name Role Phone Asked, No Pcp Primary Care Physician Unavailable Yohana Sharma Attending Clinician Unavailable Gigi Brown MD Attending Clinician TAVO KING Attending Clinician Unavailable BART ALEMAN Attending Clinician Unavailable Nurse, [facility] Attending Clinician Unavailable Doctor Unassigned, Plum Attending Clinician Unavailable Zoraida Roque MD Attending Clinician ZORAIDA ROQUE Attending Clinician Unavailable DESTINY LOWE III Attending Clinician Unavailable Yohana Sharma Admitting Clinician Unavailable RAZIA WHEATLEY Admitting Clinician Unavailable DESTINY LOWE III Admitting Clinician Unavailable Payers Payer Name Policy Type Policy Number Effective Date Expiration Date Dennis olegariopuja [facility] [id number] 2019 MEDICAID 00:00:00 [place] [id number] 2019 [facility] 00:00:00 [facility] [id number] 020-PresentHMO MEDICAID OF [place] [id number] 2019 2019 00:00:00 00:00:00 Problems This patient has no known problems. Allergies, Adverse Reactions, Alerts Allergy Allergy Status Severity Reaction(s) Onset Inactive Treating Comm ents Source Name Type Date Date Clinician No Known DA Active U [facility] Allergie 10-09 [facility]: [facility] 00 are Martinez Tellez Penicill DA Active SV RASH, [facility] ins ITCHING, 10-09 [place] NUMBNESS 00:00: Healthc 00 are [place] Penicill Propensi Active Swelling Meth rishi ins ty to 06-03 st adverse 00:00: Hospita reaction 00 l s to drug Penicill Propensi Active Swelling Meth rishi ins ty to 06-03 st adverse 00:00: Hospita reaction 00 l s to drug Penicill DA Active U 2019-02 [facility] ins 02-23 [place] 00:00: [facility] [address] Penicill DA Active U UNKNOWN 2019-02 [facility] ins 02-23 [place] 00:00: Health [address] PENICILL DRUG Active Hives 2018-02 Univers IN INGREDI ity of 00:00: [address] Social History Social Habit Start Date Stop Date Quantity Comments Source History SDOH [facility] Alcohol Std Drinks Hospit al History SDOH [facility] B[facility] Gender identity [facility] Tobacco use and 2020-06-03 2020-06-03 Smokeless [facility] exposure 00:00:00 00:00:00 tobacco non-user Hospital Alcohol intake 2020-06-03 2020-06-03 Lifetime [facility] 00:00:00 00:00:00 non-drinker Hospital (finding) History SDOH 2020-06-03 2020-06-03 1 [facility] Alcohol Frequency 00:00:00 00:00:00 Hospita l History of Social 2020-06-03 2020-06-[address] function 00:00:00 00:00:00 Hospital Sex Assigned At [birth year] [facility] 00:00:00 00:00:00 Hospital Smoking Status Start Date Stop Date Source Never smoked tobacco [facility] Medications Ordered Filled Start Stop Current Ordering [...] 18:22: mouth Hospita 35 every l morning. phentermine Yes 37.5mg QD Take 37.5 [facility] 37.5 MG 4-[address] capsule 18:22: mouth [facility] 35 every l morning. phentermine [...] to 30 days. benzonatate 2020- No 100mg [id number] Take 1 [facility] (TESSALON) 06-03 04-[id number] 100 MG 00:00: 04:59 3D (100 mg Hospita capsule 00 :00 total) by l mouth 3 (three) times a day as needed for cough for up to 5 days. Vital Signs Vital Name Observation Time Observation Value Comments Source Body height 2020-06-03 23:20:00 162.6 cm [facility] Body weight 2020-06-03 23:20:00 104.327 kg [facility] BMI 2020-06-03 23:20:00 39.48 kg/m2 [facility] Systolic blood 2020-06-03 23:19:54 125 mm[Hg] [facility] pressure Diastolic blood 2020-06-03 23:19:54 74 mm[Hg] [facility] pressure Heart rate 2020-06-03 23:19:54 94 /min [facility] Body temperature 2020-06-03 23:19:54 37.28 Jie [facility] Respiratory rate 2020-06-03 23:19:54 20 /min [facility] Oxygen saturation in 2020-06-03 23:19:54 98 /min [facility] Arterial blood by Pulse oximetry Procedures Procedure Date / Time Performing Clinician Source Performed ECG 12-LEAD 2020-06-04 00:28:54 Kevin [facility] spital GROUP A STREP, RAPID 2020-06-04 00:15:00 Kevin [facility] ANTIGEN HC COMPLETE BLD COUNT 2020-06-04 00:15:00 Kevin [facility] W/AUTO DIFF BASIC METABOLIC PANEL 2020-06-04 00:15:00 Kevin [facility] TROPONIN, I-STAT 2020-06-04 00:15:00 Kevin [facility] ospital HCG QUALITATIVE, URINE 2020-06-04 00:15:00 Kevin [facility] SCREEN URINALYSIS 2020-06-04 00:15[facility]00 [facility] 2020-06-04 00:15:00 Kevin [facility] spital XR CHEST 2 VW 2020-06-03 23:54:55 Kevin [facility] spital ECG ED PRELIMINARY 2020-06-03 23:30:13 Kevin [facility] INTERPRETATION Plan of Care Planned Activity Planned Date Details Comments Source Future Scheduled 2022-10-25 COVID-19 VACCINE [facility] Test 15:29:53 (#1) [code = COVID-19 VACCINE (#1)] Future Scheduled 2022-10-25 Hepatitis C [facility] ospital Test 15:29:53 screening (procedure) [code = 238212928] Future Scheduled 2022-10-25 Screening for [facility] Test 15:29:53 malignant neoplasm of cervix (procedure) [code = 994445086] Future Scheduled 2022-10-25 INFLUENZA VACCINE [facility] Test 15:29:53 (#1) [code = INFLUENZA VACCINE (#1)] Future Scheduled 2022-09-15 COVID-19 VACCINE [facility] Test 19:12:12 (#1) [code = COVID-19 VACCINE (#1)] Future Scheduled 2022-09-15 Hepatitis C [facility] Test 19:12:12 screening (procedure) [code = 211132780] Future Scheduled 2022-09-15 [facility] for [facility] Test 19:12:12 malignant neoplasm of cervix (procedure) [code = 888947250] Future Scheduled 2022-09-15 [facility] Test 19:12:12 [code = INFLUENZA VACCINE] Future Scheduled 2022-08-06 COVID-[address] [facility] Test 12:02:47 (#1) [code = COVID-19 VACCINE (#1)] Future Scheduled 2022-08-06 [facility] Test 12:02:47 screening (procedure) [code = 480333719] Future Scheduled 2022-08-06 [facility]ening for [facility] Test 12:02:47 malignant neoplasm of cervix (procedure) [code = 313495365] Future Scheduled 2022-08-06 [facility]INE [facility] Test 12:02:47 [code = INFLUENZA VACCINE] Future Scheduled COVID-[address] [facility] Test (1) [code = COVID-19 VACCINE (1)] Future Scheduled [facility] Test screening (procedure) [code = 716536211] Future Scheduled Screening for [facility] Test malignant neoplasm of cervix (procedure) [code = 707288986] Future Scheduled [facility]ACCINE [facility] Test [code = INFLUENZA VACCINE] Encounters Start End Encounter Admission Attending Care Care Encounter Source Date/Time Date/Time Type Type Clinicians Facility Department ID 2021-10-14 Inpatient Yohana Hagen [facility] DAYS [id number] [facility] 09:00:00 83 [facility] are [facility] 2020-12-19 Outpatient P [facility] [id number] [facility] 14:52:42 ity [facility] 2020-12-19 Outpatient [facility] [id number] Univers 14:25:49 ity [facility] 2019-12-25 Inpatient HCANW ARIELLE [id number] [facility] 12:39:00 90 [facility] are [facility] 2022-12-16 2022-12-16 Outpatient SFA SFA [id number] [place] 10:46:36 10:46:36 Anival Last Leo 2022-11-26 2022-11-26 Outpatient SFA SFA [id number] Mekhi 13:11:27 13:11:27 1005 F Leo 2020-06-03 2020-06-03 Emergency HoGigi [id number] [facility] 18:19:00 20:05:[id number] 3.430.2.7 Hospit a .3.166126 l .8 2019-08-24 2019-08-24 Outpatient R CHRISTINE [facility] [id number] Univers 09:30:00 09:30:00 WONDIFUL ity o f [facility] 2019-08-11 2019-08-11 [address] [id number] Univers 08:30:00 08:30:00 BART [facility] 2019-08-02 2019-08-02 Nurse Nurse, [facility] [id number] 13:36:00 14:05:42 Visit [facility] 350.1.13.10 [facility] 4.2.7.2.686 Professio [id number] [address] 2019-08-02 2019-08-02 Outpatient R [facility] [id number] Univers 14:00:00 14:00:00 [facility] 2019-08-02 2019-08-02 Orders Doctor CARLOTA [id number] 00:00:00 00:00:00 Only Unassigned, STU 350.1.13.10 Plum [facility] 4.2.7.2.686 [id number] 2019-07-06 2019-07-06 Office Gene Zoraida [facility] [id number] 13:05:07 14:04:09 Visit Greg Starks 350.1.13.10 [place] 4.2.7.2.686 Professio [id number] [address] 2019-07-06 2019-07-06 Outpatient R ZORAIDA ROQUE [facility] [id number] Univers 13:00:00 13:00:00 [facility] 2019-06-15 2019-06-15 [facility] [id number] Univers 09:30:00 09:30:00 BART ford [facility] 2019-05-25 2019-05-25 Outpatient R LOVE [facility] [id number] Univers 10:30:00 10:30:00 BART ford [facility] 2019-05-17 2019-05-17 Outpatient R ZORAIDA ROQUE [facility] [id number] Univers 09:00:00 09:00:00 logan [facility] 2019-05-11 2019-05-11 Outpatient R LOVE [facility] [id number] Univers 15:15:00 15:15:00 BART ford [facility] 2019-05-05 2019-05-05 Outpatient R LOVE [facility] [id number] Univers 08:15:00 08:15:00 BART [facility] 2019-02-02 2019-02-02 Emergency X MYNOR III, [facility] ERT [id number] Univers 16:33:54 21:30:00 DESTINY [facility] Results Test Description Test Time Test Comments Results Result Comments Source ECG 12 lead 2020-06-05 02:38:51 Test Item Value Reference Range Interpretation Comme nts Ventricular rate (test code = 253) Atrial rate (test code = 255) MT interval (test code = 266) QRSD interval [...] , age undetermined-Abnormal ECG-No previous ECGs available- [facility] [id number] 00:26:22EXAMINATION: XR CHEST 2 VW CLINICAL HISTORY: 34 years Female evaluate for PNA COMPARISON: None. IMPRESSION: The cardiomediastinal silhouette is not enlarged The lungs are clear Age related changes in the osseous structures. . . Hm Interface, Radiology Results Incoming - 06/03/2020 7:29 PM CDT EXAMINATION: XR CHEST 2 VWCLINICAL HISTORY: 34 years Female evaluate for PNACOMPARISON: None.IMPRESSION:The cardiomediastinal silhouette is not enlarged The lungs are clear Age related changes in the osseous structures... [facility] ED Preliminary Interpretation - Not an [id number] 23:30:13Gigi Brown MD 06/03/2020 7:48 [facility] ED Preliminary Interpretation - Not an OrderPerformed by: Gigi Brown MDAuthorized by: Gigi Brown MD ECG reviewed by ED Physician in the absence of a instructor substitute cosmetology: yes Interpretation: Interpretation: non-specific Rate: ECG rate: 87 ECG rate assessment: normal Rhythm: Rhythm: sinus rhythm ST segments: ST segments: NormalT waves: T waves: non-specific and flatteningURINALYSIS [id number] 14:09:00 Test Item Value Reference Range Interpretation [...] MUCU) 1+ /LPF NONE SEEN UR HCG [id number] 14:08:00 Test Item Value Reference Range Interpretation Comments UR HCG QUAL (test code = HCGQLU) NEGATIVE NEGATIVE
[2023-01-03 23:40] LABS: Specific Gravity 1.024 (1.005-1.030)
[2023-01-03 23:41] LABS: Specific Gravity 1.024 (1.005-1.030); Urine Bacteria <20 /HPF (<20); Urine Bilirubin NEGATIVE (Negative); Urine Blood Trace (Negative); Urine Clarity Clear (Clear); Urine Color Light-Yellow (Yellow); Urine Glucose NEGATIVE (Negative); Urine Mucus Slight /HPF (None Seen); Urine Protein NEGATIVE (Negative); Urine RBC <5 /HPF (None Seen); Urine Urobilinogen Normal (Normal); Urine pH 5.5 (5.0-7.0)
--- NOTE | 2023-01-04 00:50 | ER ---
Nurse's Notes [facility] Name: Sarah Smith Age: 37 yrs Sex: Female : 1985 Arrival Date: 01/03/2023 Time: 22:20 Bed 7 Private MD: Diagnosis: Other abdominal pain Presentation: 01/03 22:40 Chief complaint: Patient states: bilateral upper side swelling with right flank pain of pf1 8,onset this AM. 22:40 Coronavirus screen: Vaccine status: Patient reports being unvaccinated. Client denies pf1 travel out of the [place] in the last 14 days. At this time, the client does not indicate any symptoms associated with coronavirus-19. Ebola Screen: Patient negative for fever greater than or equal to 101.5 degrees Fahrenheit, and additional compatible Ebola Virus Disease symptoms. Initial Sepsis Screen: Does the patient meet any 2 criteria? No. Patient's initial sepsis screen is negative. Does the patient have a suspected source of infection? No. Patient's initial sepsis screen is negative. Risk Assessment: Do you want to hurt yourself or someone else? Patient reports no desire to harm self or others. 22:40 Method Of Arrival: Ambulatory pf1 22:40 Acuity: VIPIN 3 pf1 Triage Assessment: 23:00 General: Appears in no apparent distress. obese, Behavior is cooperative, appropriate bp for age, anxious. Pain: Complains of pain in abdomen. GI: Abdomen is non-distended. Historical: - Allergies: 23:04 PENICILLINS; pf1 - PMHx: 23:05 liposuction; pf1 - PSHx: 23:04 breast implants; section; Cholecystectomy; Tonsillectomy; Tummy tuck; pf1 - Immunization history:: Adult Immunizations not up to date, Client reports having NOT received the Covid vaccine. Last tetanus immunization: > 10 years ago. - Social history:: Smoking status: Patient denies any tobacco usage or history of. Patient/guardian denies using alcohol, street drugs. Screenin:00 [facility] ED Fall Risk Assessment (Adult) History of falling in the last 3 months, bp including since admission No falls in past 3 months (0 pts). Abuse screen: Denies threats or abuse. Denies injuries from another. Nutritional screening: No deficits noted. Tuberculosis screening: No symptoms or risk factors identified. Assessment: 23:00 General: SEE TRIAGE NOTE. bp Vital Signs: 22:40 BP 124 / 88; Pulse 82; Resp 16; Temp 97.9; Pulse Ox 100% on R/A; Weight 81.65 kg; pf1 Height 5 ft. 6 in. ; Pain 8/10; 01/04 00:56 BP 98 / 75; Pulse 76; Resp 16; Pulse Ox 100% ; bp 01/03 22:40 Body Mass Index 29.05 (81.65 kg, 167.64 cm) pf1 01/03 22:40 Pain Scale: Adult pf1 ED Course: 01/03 22:21 Patient arrived in ED. jj6 22:33 Dalton Fuller MD is Attending Physician. sp3 22:44 Mk Martin, RN is Primary Nurse. bp 23:00 Arm band placed on. bp 23:00 Patient has correct armband on for positive identification. Bed in low position. Call bp light in reach. 23:04 Triage completed. pf1 23:30 Radiology exam delayed due to test not completed at this time. sw 01/04 00:15 Chest Abd Pelvis Wo Con In Process Unspecified. EDMS 00:57 No provider procedures requiring assistance completed. Patient did not have IV access bp during this emergency room visit. Administered Medications: No medications were administered Medication: 01/03 23:00 VIS not applicable for this client. bp Outcome: 01/04 00:50 Discharge ordered by MD. sp3 00:57 Discharged to home ambulatory, bp 00:57 Condition: stable 00:57 Discharge instructions given to patient, Instructed on discharge instructions, follow up and referral plans. Demonstrated understanding of instructions, follow-up care, 00:57 Patient left the ED. bp Signatures: Dispatcher [employer] EDMS LeninNelly Mk Martin, RN RN bp Dalton Fuller MD MD sp3 Adriana Pettit [facility] Anastacio Quinones [facility] Mari Toussaint RN RN pf1 Corrections: (The following items were deleted from the chart) 01/03 23:06 23:04 PMHx: liposuction (Tummy tuck); pf1 pf1 23:30 22:48 Radiology exam delayed due to lab results not completed at this time. sw (BUN/Creatinine) test not completed at this time. IV insertion attempt and/or patient not having appropriate IV at this time. eh4
--- NOTE | 2023-01-04 00:50 | EDPHYS ---
Physician Documentation [facility] Name: Sarah Smith Age: 37 yrs Sex: Female : 1985 Arrival Date: 01/03/2023 Time: 22:20 Bed 7 Private MD: ED Physician Dalton Fuller HPI: 01/03 22:48 This 37 yrs old Female presents to ER via Unassigned with complaints of sp3 Abdominal Swelling, Abdominal Pain. 22:48 37-year-old female with history of cholecystectomy, obesity now presents to the ED with sp3 abdominal wall swelling and mild pain to the right flank that she "first noticed today". 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 Pain is described as waxing and waning. Patient is ambulatory and in no acute distress.. Historical: - Allergies: 23:04 PENICILLINS; pf1 - PMHx: 23:05 liposuction; pf1 - PSHx: 23:04 breast implants; section; Cholecystectomy; Tonsillectomy; Tummy tuck; pf1 - Immunization history:: Adult Immunizations not up to date, Client reports having NOT received the Covid vaccine. Last tetanus immunization: > 10 years ago. - Social history:: Smoking status: Patient denies any tobacco usage or history of. Patient/guardian denies using alcohol, street drugs. ROS: 22:49 Constitutional: Negative for fever, chills, and weight loss, Eyes: Negative for injury, sp3 pain, redness, and discharge, ENT: Negative for injury, pain, and discharge, Neck: Negative for injury, pain, and swelling, Cardiovascular: Negative for chest pain, palpitations, and edema, Respiratory: Negative for shortness of breath, cough, wheezing, and pleuritic chest pain, Back: Negative for injury and pain, : Negative for injury, bleeding, discharge, and swelling, MS/Extremity: Negative for injury and deformity, Skin: Negative for injury, rash, and discoloration, Neuro: Negative for headache, weakness, numbness, tingling, and seizure, Psych: Negative for depression, anxiety, suicide ideation, homicidal ideation, and hallucinations, Allergy/Immunology: Negative for hives, rash, and allergies, Endocrine: Negative for neck swelling, polydipsia, polyuria, polyphagia, and marked weight changes, Hematologic/Lymphatic: Negative for swollen nodes, abnormal bleeding, and unusual bruising, 22:49 All other systems are negative, Exam: 22:49 Constitutional: This is a well developed, well nourished patient who is awake, alert, sp3 and in no acute distress. Head/Face: Normocephalic, atraumatic. Eyes: Pupils equal round and reactive to light, extra-ocular motions intact. Lids and lashes normal. Conjunctiva and sclera are non-icteric and not injected. Cornea within normal limits. Periorbital areas with no swelling, redness, or edema. Neck: Trachea midline, no thyromegaly or masses palpated, and no cervical lymphadenopathy. Supple, full range of motion without nuchal rigidity, or vertebral point tenderness. No Meningismus. Chest/axilla: Normal chest wall appearance and motion. Nontender with no deformity. No lesions are appreciated. Cardiovascular: Regular rate and rhythm with a normal S1 and S2. No gallops, murmurs, or rubs. Normal PMI, no JVD. No pulse deficits. Respiratory: Lungs have equal breath sounds bilaterally, clear to auscultation and percussion. No rales, rhonchi or wheezes noted. No increased work of breathing, no retractions or nasal flaring. Back: No spinal tenderness. No costovertebral tenderness. Full range of motion. Skin: Warm, dry with normal turgor. Normal color with no rashes, no lesions, and no evidence of cellulitis. MS/ Extremity: Pulses equal, no cyanosis. Neurovascular intact. Full, normal range of motion. Neuro: Awake and alert, GCS 15, oriented to person, place, time, and situation. Cranial nerves II-XII grossly intact. Motor strength 5/5 in all extremities. Sensory grossly intact. Cerebellar exam normal. Normal gait. Psych: Awake, alert, with orientation to person, place and time. Behavior, mood, and affect are within normal limits. 22:49 Abdomen/GI: Mild swelling of the right upper/lateral part of the abdomen noted. Possible lipoma versus natural adipose tissue. No right-sided CVA tenderness and abdomen is nontender at the moment. Nonsurgical abdomen noted., Vital Signs: 22:40 BP 124 / 88; Pulse 82; Resp 16; Temp 97.9; Pulse Ox 100% on R/A; Weight 81.65 kg; pf1 Height 5 ft. 6 in. ; Pain 8/10; 01/04 00:56 BP 98 / 75; Pulse 76; Resp 16; Pulse Ox 100% ; bp 01/03 22:40 Body Mass Index 29.05 (81.65 kg, 167.64 cm) pf1 01/03 22:40 Pain Scale: Adult pf1 MDM: 01/03 22:42 Patient medically screened. sp3 22:50 Data reviewed: vital signs, nurses notes, lab test result(s), radiologic studies. ED sp3 course: 37-year-old female with right-sided abdominal wall swelling and now resolved pain. I am not highly suspicious for critical process including sepsis and shock. Differential diagnosis includes lipoma, naturally occurring adipose tissue, possible UTI and to a much less likelihood ureterolithiasis/kidney stone. Will obtain urinalysis and CT scan of the abdomen pelvis noncontrast and disposition from there.. 01/04 00:49 ED course: CT scan is negative and UA also demonstrates no abnormality. We will safely sp3 discharge patient home at this time.. 11 22:47 Order name: Test, Urine; Complete Time: 23:42 sp3 01/03 22:47 Order name: Urinalysis w/ reflexes; Complete Time: 23:42 sp3 01/04 00:06 Order name: Chest Abd Pelvis Wo Con EDMS Administered Medications: No medications were administered Disposition Summary: 01/04/23 00:50 Discharge Ordered Notes: Location: Home sp3 Condition: Stable sp3 Diagnosis - Other abdominal pain sp3 Followup: sp3 - With: Private Physician - When: Upon discharge from the Emergency Department - Reason: Continuance of care Discharge Instructions: - Discharge Summary Sheet sp3 - Abdominal Pain, Adult sp3 Forms: - Medication Reconciliation Form sp3 - Thank You Letter sp3 - Antibiotic Education sp3 - Prescription Opioid Use sp3 - Patient Portal Instructions sp3 - Leadership Thank You Letter sp3 Signatures: Dispatcher [employer] EDDalton Avendaño MD MD sp3 Mari Toussaint, RN RN pf1 Corrections: (The following items were deleted from the chart) 01/03 23:06 23:04 PMHx: liposuction (Tyler neil); pf1 pf1 01/04 00:06 01/03 22:47 Abdomen Pelvis Wo Con+CT.RAD.BRZ ordered. EDMS EDMS
[2023-01-04 01:02] VITALS: TEMP 97.9; O2SAT 100
[2023-01-04 01:03] VITALS: BP 98/75
--- NOTE | 2023-01-05 13:41 | RAD REPORT ---
EXAM DESCRIPTION: CT - Chest Abd Pelvis Wo Con - 01/04/2023 6:58 am CLINICAL HISTORY: 37 years, Female, chest pain, right abdominal wall swelling, flank pain COMPARISON: None TECHNIQUE: Noncontrast images of the chest, abdomen and pelvis were performed utilizing 5 mm slice t hickness at 5 mm interval reconstruction from the lung apices to the ischial tuberosities. In addition multiplanar reformats in the coronal and sagittal plane were obtained and reviewed. An individualized dose optimization technique, Automated Exposure Control, was utilized for the perfo rmed procedure. CHEST: The lungs parenchyma demonstrate to be clear. No masses nodules are identified. Minimal atelec tasis posterior segment right upper lobe. No evidence for pneumothorax. The trachea mainstem bronch us demonstrate to be normal. There is no significant pleural and/or pericardial effusions. The heart is normal in size. The aorta and great vessels demonstrate to be unremarkable. There is n o significant mediastinal and/or hilar lymphadenopathy. The axillary regions demonstrate to be clear. The bone windows demonstrate no evidence for acute bony injuries. Minimal anterior spondylosis lower thoracic spine. No compression deformities and/or significant skeletal lesions. Retropectoral breast implant. ABDOMEN AND PELVIS: Grossly the unopacified liver, pancreas, spleen and adrenal glands demonstrate to be unremarkable, no focal lesions are noted. Surgical clips within the gallbladder fossa correspondi ng to previous cholecystectomy The kidneys demonstrate normal uptake of contrast media. No hydronephrosis and/or stones were ident ified. Grossly the unopacified stomach, small bowel and large bowel demonstrate to be within normal limits. Fecal residue within the large bowel limits evaluation. The appendix is normal. The left-sided colo n is unremarkable. The urinary bladder demonstrate to be unremarkable. The uterus demonstrate to be within normal limi ts. There are no adnexal masses. The aorta demonstrate to be normal. There is no retroperitoneal lymphadenopathy. There is no evidence for ascites and/or abnormal fluid collections. The rest of the soft tissue and bony structures are within normal limits. IMPRESSION: Status post cholecystectomy. Otherwise unremarkable CT scan of the chest, abdomen and pelvis without contrast. Electronically signed by: Kodi Lewis MD 01/04/2023 12:29 AM TRIMMING CUTTER MACHINE Due to temporary technical issues with the PACS/Fluency reporting system, reports are being signed by the in house radiologist without review as a courtesy to ensure prompt reporting. The interpreting r adiologist is fully responsible for the content of the report.
== END 2023-01-04 00:57 | disposition home or self-care (01) ==
LOC: ER 22:20
DX: R10.9 Unspecified abdominal pain (principal)
CPT/HCPCS: 71250; 74176; 81001; 81025; 99282

== ENCOUNTER 2023-12-30 18:44 | Emergency (ER) | payer OTHER, SELFPAY ==
[2023-12-30 20:02] LABS: Absolute Eosinophils 0.3 K/uL (0-0.5); Absolute Lymphocytes (CBC) 2.8 K/uL (0.7-4.9); Absolute Monocytes 0.5 K/uL (0.1-1.3); Absolute Neutrophil 5.6 K/uL (1.8-8.0); Basophils % 0.5 % (0-1.3); Hematocrit 41.8 % (36.0-45.0); Lymphocytes % 30.2 % (15.3-44.8); MCH 30.2 pg (27.0-35.0); MCHC 33.5 g/dL (32.0-36.0); MCV 90.2 fL (80-100); MPV 8.8 fL (7.6-11.3); Monocytes % 5.8 % (3.3-12.3); Neutrophils % 60.5 % (41.7-73.7); Platelets 346 thou/uL (152-406); RBC Red Blood Cell Count 4.63 M/uL (3.86-4.86); Red Cell Distribution Width 12.8 % (12.1-15.2)
[2023-12-30 20:15] LABS: Specific Gravity > 1.030 (1.005-1.030)
[2023-12-30 20:22] LABS: Albumin 3.6 g/dL (3.4-5.0); Albumin/Globulin Ratio 0.9 (1.1-1.8); Alkaline Phosphatase 88 U/L (45-117); Anion Gap 4.7 mEq/L (5.0-15.0); BUN Blood Urea Nitrogen 14 mg/dL (7-18); Bicarbonate 29 mEq/L (21-32); Bilirubin Total 0.3 mg/dL (0.2-1.0); Globulin 3.9 g/dL (2.3-3.5); Glomerular Filtration Rate 101 ml/min (=/>90); Glucose Level 127 mg/dL (74-106); Lipase 31 U/L (13-75); Potassium 3.7 mEq/L (3.5-5.1); Protein, Total 7.5 g/dL (6.4-8.2); Sodium Level 140 mEq/L (136-145); Specific Gravity > 1.030 (1.005-1.030); Sqamous Epithelial <5 /HPF (None Seen); Urine Bacteria <20 /HPF (<20); Urine Bilirubin NEGATIVE (Negative); Urine Blood 3+ (OVER) (Negative); Urine Clarity Extremely Turbid (Clear); Urine Color Yellow (Yellow); Urine Crystals Unidentified Few /HPF (None Seen); Urine Culture Reflex Order NOT NEEDED; Urine Glucose NEGATIVE (Negative); Urine Ketones TRACE (Negative); Urine Microscopic Reflex YN ORDER UMIC; Urine Mucus 4+ /HPF (None Seen); Urine Nitrite NEGATIVE (Negative); Urine Protein 1+ (Negative); Urine RBC 21-50 /HPF (None Seen); Urine Urobilinogen 1+ (Normal); Urine WBC <5 /HPF (<5); Urine pH 5.5 (5.0-7.0)
[2023-12-30 20:23] LABS: ALT/SGPT < 14 U/L (13-56); AST/SGOT < 10 U/L (15-37)
--- NOTE | 2023-12-30 21:19 | RAD REPORT ---
EXAMINATION: US Transvaginal Study Probe CLINICAL INDICATION: Female 38 years old.[facility] MAIN now VAGINAL BLEEDING Bed Name: 18 TECHNIQUE: Real-time ultrasonography of the pelvis was performed transvaginally. Color and spectral D oppler evaluation of the ovaries was performed. COMPARISON: No prior exam. FINDINGS: UTERUS AND CERVIX: The uterus measures 10 cm in length. Mildly prominent venous plexus along the quyen pheral myometrium, nonspecific. Right fundal to mid segment 1.4 cm fibroid. The endometrium is normal, 0.3 cm in thickness. RIGHT OVARY: Normal The right ovary measures 3.1 x 1.8 x 1.9 cm. Normal peripheral follicles, with a dominant 1.5 cm cyst or follicle. Normal color and spectral Doppler evaluation of the right ovary.. LEFT OVARY: Not visualized which limits evaluation. FREE FLUID: No free fluid. IMPRESSION: Incidentally noted small right uterine wall 1.4 cm fibroid. Mildly prominent venous plexus along the periphery of the myometrium, nonspecific. No other suspicious findings in the pelvis. Nonvisualization of the left ovary limits evaluation.
--- NOTE | 2023-12-30 22:03 | RAD REPORT ---
EXAMINATION: CT Abdomen Pelvis W Contrast CLINICAL INDICATION: Female, 38 years old. ABD PAIN TECHNIQUE: CT abdomen and pelvis was performed, after the administration of IV contrast, as per [facility] protocol. Axial, sagittal and coronal reconstructions were obtained. One or more of the following dose reduction techniques were used: Automated exposure control, adjustment of the mA and k V according to patient size, and iterative reconstruction. Unless otherwise specified, incidental findings do not require dedicated imaging follow-up. COMPARISON: 03/06/2022 FINDINGS: LOWER CHEST: The visualized lung bases are clear. LIVER: Normal in size and contour. No focal lesion. BILIARY SYSTEM: Status post cholecystectomy. SPLEEN: Normal size. No focal lesion. PANCREAS: No mass, ductal dilation, or quyen-pancreatic fluid. ADRENALS: Normal; no mass. KIDNEYS: Normal size and contour. No hydronephrosis. URINARY BLADDER: Decompressed limiting evaluation. GASTROINTESTINAL TRACT: Sequelae of bariatric surgery. No evidence of free air, significant intra-abd ominal free fluid, bowel obstruction or abscess. APPENDIX: Normal appendix. LYMPH NODES: No lymphadenopathy. MUSCULOSKELETAL: No acute or suspicious osseous abnormality. ADDITIONAL FINDINGS: Dominant right ovarian cyst or follicle measuring 1.5 cm. IMPRESSION: No acute or concerning abnormalities seen in the abdomen or pelvis.
--- NOTE | 2023-12-30 22:10 | ER ---
Nurse's Notes [facility] Name: Sarah Smith Age: 38 yrs Sex: Female : 1985 Arrival Date: 12/30/2023 Time: 18:44 Bed 18 Private MD: Diagnosis: Uterine fibroids Presentation: 12/29 19:12 Chief complaint: Patient states: I have pains that feels like I'm going to have tm6 diarrhea. It has been going on for days and today I started my period. I have lots of clots coming out. The pain is both sides of my lower back. Also feels like I'm going into , my vaginal area hurts so much. I get sweaty. I have a history of fibroids and cysts -- I had a surgery done, but I don't know if it is back. Coronavirus screen: Client denies travel out of the [place] in the last 14 days. Ebola Screen: Patient negative for fever greater than or equal to 101.5 degrees Fahrenheit, and additional compatible Ebola Virus Disease symptoms Patient denies exposure to infectious person. Patient denies travel to an Ebola-affected area in the 21 days before illness onset. No symptoms or risks identified at this time. Initial Sepsis Screen: Does the patient meet any 2 criteria? No. Patient's initial sepsis screen is negative. Does the patient have a suspected source of infection? No. Patient's initial sepsis screen is negative. Risk Assessment: Do you want to hurt yourself or someone else? Patient reports no desire to harm self or others. Onset of symptoms was December 27, 2023. 19:12 Method Of Arrival: Ambulatory tm6 19:12 Acuity: VIPIN 3 tm6 Triage Assessment: 19:14 General: Appears in no apparent distress. uncomfortable, Behavior is calm, cooperative. tm6 Pain: Complains of pain in back and pelvis Pain currently is 8 out of 10 on a pain scale. Quality of pain is described as sharp, Pain began 2-3 days ago. EENT: No signs and/or symptoms were reported regarding the EENT system. Neuro: Level of Consciousness is awake, alert, obeys commands, Oriented to person, place, time, situation. Cardiovascular: Patient's skin is warm and dry. Respiratory: Airway is patent Respiratory effort is even, unlabored, Respiratory pattern is regular, symmetrical. GI: No signs and/or symptoms were reported involving the gastrointestinal system. Abdomen is flat, non-distended. : Reports pain in suprapubic area in lower back Pain is 8 out of 10 on a pain scale. vaginal bleeding that is with clots. Derm: No signs and/or symptoms reported regarding the dermatologic system. Musculoskeletal: Circulation, motion, and sensation intact. Reports pain in back and pelvis since a few days ago. Pain is 8 out of 10 on a pain scale. 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 - Infectious Disease History:: Denies. - Social history:: Smoking status: Patient denies any tobacco usage or history of. Patient/guardian denies using alcohol. Screenin:18 [facility] ED Fall Risk Assessment (Adult) History of falling in the last 3 months, jb4 including since admission No falls in past 3 months (0 pts) Confusion or Disorientation No (0 pts) Intoxicated or Sedated No (0 pts) Impaired Gait No (0 pts) Mobility Assist Device Used No (0 pt) Altered Elimination No (0 pt) Score/Fall Risk Level 0 - 2 = Low Risk Oriented to surroundings, Maintained a safe environment. Abuse screen: Denies threats or abuse. Nutritional screening: No deficits noted. Tuberculosis screening: No symptoms or risk factors identified. Assessment: 20:17 General: Appears in no apparent distress. uncomfortable, Behavior is calm, cooperative, jb4 appropriate for age. Pain: Complains of pain in groin Pain radiates to coccyx Pain currently is 8 out of 10 on a pain scale. Quality of pain is described as shocking. Neuro: Level of Consciousness is awake, alert, obeys commands, Oriented to person, place, time, situation. Cardiovascular: Patient's skin is warm and dry. Respiratory: Airway is patent Respiratory effort is even, unlabored, Respiratory pattern is regular, symmetrical. GI: Reports diarrhea. : Reports vaginal bleeding that is bright red, with clots. EENT: No signs and/or symptoms were reported regarding the EENT system. Derm: Skin is intact, Skin is pink, warm \T\ dry. Musculoskeletal: Circulation, motion, and sensation intact. Range of motion: intact in all extremities. 22:18 Reassessment: Patient appears in no apparent distress at this time. Patient and/or jb4 family updated on plan of care and expected duration. Pain level reassessed. Patient is alert, oriented x 3, equal unlabored respirations, skin warm/dry/pink. Vital Signs: 19:11 BP 112 / 84; Pulse 78; Resp 17; Temp 96.7(TE); Pulse Ox 100% on R/A; MAP 94 mmHg; tm6 Weight 90.72 kg; Height 5 ft. 2 in. ; Pain 8/10; 22:18 BP 119 / 74; Pulse 71; Resp 16; Pulse Ox 95% on R/A; jb4 19:11 Body Mass Index 36.58 (90.72 kg, 157.48 cm) tm6 19:11 Pain Scale: Adult tm6 ED Course: 18:45 Patient arrived in ED. im 19:14 Triage completed. tm6 19:14 Arm band placed on right wrist. tm6 19:16 Allergy band placed. tm6 19:39 [facility] sb4 19:39 Paras Chan MD is Attending Physician. sb4 19:52 CBC with Diff Sent. jb4 19:52 CMP Sent. jb4 19:52 Lipase Sent. jb4 19:55 Inserted saline lock: 20 gauge in right antecubital area, using aseptic technique. oe Blood collected. Flushed with 10 mL NS. 19:55 Test, Urine Sent. oe 19:55 Urinalysis w/ reflexes Sent. oe 20:02 Anthony Jansen, SO is Primary Nurse. jb4 20:20 Transvaginal Study (probe) In Process Unspecified. EDMS 21:27 CT Abd/Pelvis - IV Contrast Only In Process Unspecified. EDMS 22:10 Pushpa Roth MD is Referral Physician. sb4 22:18 Provided Education on: discharge instructions.. jb4 22:18 No provider procedures requiring assistance completed. Patient did not have IV access jb4 during this emergency room visit. Administered Medications: No medications were administered Medication: 22:18 VIS not applicable for this client. jb4 Outcome: 22:10 Discharge ordered by . sb4 22:18 Discharged to home ambulatory, jb4 22:18 Condition: stable 22:18 Discharge instructions given to patient, Instructed on discharge instructions, follow up and referral plans. medication usage, Demonstrated understanding of instructions, follow-up care, medications, Prescriptions given X 1, 22:21 Patient left the ED. jb4 Signatures: Dispatcher [employer] EDMS Anthony Jansen, RN RN jb4 Emory Isaac Sophia, PA-C PA-C sb4 Pita Sims Tawney, RN RN tm6
--- NOTE | 2023-12-30 22:10 | EDPHYS ---
Physician Documentation [facility] [place], [place] Name: Sarah Smith Age: 38 yrs Sex: Female : 1985 Arrival Date: 12/30/2023 Time: 18:44 Bed 18 Private MD: ED Physician Paras Chan HPI: 12/30 00:24 This 38 yrs old Female presents to ER via Ambulatory with complaints of Pelvic sb4 Pain. 00:25 The patient presents with pelvic pain, vaginal bleeding that is heavy. sb4 00:25 Patient reports vaginal bleeding and pelvic pain that began a few days ago. She states sb4 that her symptoms are similar to when she had uterine fibroids. States that she had a uterine ablation 1 year ago which stopped the symptoms. States that she has had irregular periods since but her bleeding has never been heavy like this. Denies any urinary symptoms. She is not on any hormonal contraceptives. 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 - Infectious Disease History:: Denies. - Social history:: Smoking status: Patient denies any tobacco usage or history of. Patient/guardian denies using alcohol. ROS: 12/30 00:25 Positive for pelvic pain, vaginal bleeding, sb4 Constitutional: Negative for fever, chills, and weight loss, All other systems are negative, Exam: 00:26 Constitutional: This is a well developed, well nourished patient who is awake, alert, sb4 and in no acute distress. Head/Face: Normocephalic, atraumatic. Eyes: Extra-ocular motions intact. Periorbital areas with no swelling, redness, or edema. ENT: Mucous membranes moist. Cardiovascular: Regular rate and rhythm with a normal S1 and S2. Respiratory: No increased work of breathing, no retractions or nasal flaring. Skin: Warm, dry with normal turgor. Normal color with no rashes, no lesions, and no evidence of cellulitis. 00:26 Abdomen/GI: Inspection: abdomen appears normal, Palpation: soft, mild abdominal tenderness, in the right lower quadrant and left lower quadrant, Vital Signs: 12/29 19:11 BP 112 / 84; Pulse 78; Resp 17; Temp 96.7(TE); Pulse Ox 100% on R/A; MAP 94 mmHg; tm6 Weight 90.72 kg; Height 5 ft. 2 in. ; Pain 8/10; 22:18 BP 119 / 74; Pulse 71; Resp 16; Pulse Ox 95% on R/A; jb4 19:11 Body Mass Index 36.58 (90.72 kg, 157.48 cm) tm6 19:11 Pain Scale: Adult tm6 MDM: 19:39 Medical Screening Exam initiated sb4 12/30 00:26 Data reviewed: vital signs, nurses notes, lab test result(s), radiologic studies, and sb4 as a result, I will discharge patient. Counseling: I had a detailed discussion with the patient and/or guardian regarding the historical points, exam findings, and any diagnostic results supporting the discharge/admit diagnosis, lab results, radiology results, the need for outpatient follow up, an OB/Gyne specialist, to return to the emergency department if symptoms worsen or persist or if there are any questions or concerns that arise at home. 12/29 19:33 Order name: CBC with Diff; Complete Time: 20:08 rn 12/29 19:33 Order name: CMP; Complete Time: 20:23 rn 12/29 19:33 Order name: Lipase; Complete Time: 20:23 rn 12/29 19:33 Order name: Test, Urine; Complete Time: 20:16 rn 12/29 19:33 Order name: Urinalysis w/ reflexes; Complete Time: 20:23 rn 12/29 19:33 Order name: CT Abd/Pelvis - IV Contrast Only; Complete Time: 22:03 rn 12/29 19:45 Order name: Transvaginal Study (probe); Complete Time: 21:21 sb4 12/29 19:33 Order name: IV Saline Lock; Complete Time: 19:52 rn 12/29 19:33 Order name: Labs collected and sent; Complete Time: 19:52 rn Administered Medications: No medications were administered Disposition Summary: 12/30/23 22:10 Discharge Ordered Notes: Location: Home sb4 Problem: new sb4 Symptoms: have improved sb4 Condition: Stable sb4 Diagnosis - Uterine fibroids sb4 Followup: sb4 - With: Pushpa Roth MD - When: 1 week - Reason: Recheck today's complaints, Re-evaluation by your physician Discharge Instructions: - Discharge Summary Sheet sb4 - Uterine Fibroids, [id number] sb4 Forms: - Patient Portal Instructions sb4 - Leadership Thank You Letter sb4 Prescriptions: - Sprintec (28) 0.25-35 mg-mcg Oral tablet - take 1 tablet ORAL route daily; 1 Pack; Refills: 0, Product Selection Permitted sb4 Addendum: 01/03/2024 08:18 Co-signature as Attending Physician, Paras Chan MD I reviewed the patient's care r n provided by the Advanced Practice Provider and agree with the diagnosis and treatment plan. Signatures: Dispatcher [employer] EDMS Paras Chan MD MD rn Brown, Sophia, PA-C PA-C sb4 LaminTal rodriguez RN RN tm6 Corrections: (The following items were deleted from the chart) 12/29 19:33 19:33 CBC+H.LAB.BRZ ordered. EDMS EDMS 19:33 19:33 COMPREHENSIVE METABOLIC PANEL+C.LAB.BRZ ordered. EDMS EDMS 19:33 19:33 LIPASE+C.LAB.BRZ ordered. EDMS EDMS 19:33 19:33 Test, Urine+UC.LAB.BRZ ordered. EDMS EDMS 19:33 19:33 Urinalysis+U.LAB.BRZ ordered. EDMS EDMS 19:33 19:33 Abdomen Pelvis W Con+CT.RAD.BRZ ordered. EDMS EDMS
[2023-12-30 22:26] VITALS: TEMP 96.7
[2023-12-30 22:27] VITALS: BP 119/74; O2SAT 95
== END 2023-12-30 22:21 | disposition home or self-care (01) ==
LOC: ER 18:44
DX: D25.9 Leiomyoma of uterus, unspecified (principal)
CPT/HCPCS: 36415; 74177; 76830; 80053; 81001; 81025; 83690; 85025; 99283; Q9967